=== PATIENT | male | born 1965 | race Caucasian/White ===

== ENCOUNTER 2016-12-24 09:20 | Inpatient (IN) ==
[2016-12-24] MEDS ORDERED: Naloxone 0.4 MG/ML INJ IVP PRN (16:02)
[2016-12-24] MEDS: *HR* HYDROmorphone (PF) 1 MG/ML SYRINGE IVP PRN (16:33)
[2016-12-24] MEDS ORDERED: Dextrose Gel 15 GM PO PRN ×2 (17:24)
[2016-12-24] MEDS ORDERED: D5% in Water 1,000 ML IV PRN (17:24)
[2016-12-24] MEDS ORDERED: *HR* Dextrose 50 % in Water (Syg) 50 ML SYRINGE IVP PRN (17:24)
--- NOTE | 2016-12-24 17:33 | Internal Med History&Physical ---
<Bronson Tavarez - Last Filed: 12/24/16 20:55> Date of Encounter: 12/24/16 Internal Medicine - H&P: HPI History of present illness: Mr. Roman is a 51 year old male Internal Medicine - H&P: Meds Furosemide [Lasix] 80 mg PO DAILY 01/19/16 [History] GlipiZIDE [Glucotrol] 5 mg PO DAILY 01/19/16 [History] Insulin ASPART [NovoLOG] 0 unit SQ TIDWM 01/19/16 [History] Insulin Glargine [Lantus] 90 unit SQ BID 01/19/16 [History] Lisinopril-HCTZ 20-12.5 [Prinzide 20-12.5] 1 each PO DAILY 01/19/16 [History] Albuterol Neb [Proventil Neb] 2.5 mg IH [id number] PRN #0 inhsol 12/24/16 [Rx] Ammonium Lactate [Amlactin] 1 appl TP BID bottle 12/24/16 [Rx] Collagenase Oint [Santyl] 1 appl TP DAILY 12/24/16 [History] Enoxaparin [Lovenox] 40 mg SQ 0700 syringe 12/24/16 [Rx] Gentamicin Sulfate 1 appl TP TID 12/24/16 [History] HYDROcodone/Acet 5/325 mg [[place] 5-325 mg] 1 tab PO Q4HR PRN #0 tablet 12/24/16 [Rx] Nicotine Gum [Nicorette gum] 2 mg BC Q2HWA PRN #0 gum 12/24/16 [Rx] Nystatin POWDER [Nystop] 1 appl TP TID bottle 12/24/16 [Rx] Piperacillin/Tazobactam [Zosyn] 3.375 gm IVPB Q8HR vial 12/24/16 [Rx] Vancomycin [Vancocin] 1 each IVPB RPHPROT vial 12/24/16 [Rx] Vancomycin [Vancocin] 1,000 mg IVPB ONCE vial 12/24/16 [Rx] Vancomycin [Vancocin] 1,000 mg IVPB ONCE vial 12/24/16 [Rx] Vancomycin [Vancocin] 2,000 mg IVPB Q24H vial 12/24/16 [Rx] Allergies codeine Adverse Reaction (Mild, Verified 12/21/16 22:33) Constipation All Systems PM: A 10-system review of systems was performed and is negative for pertinent findings except as documented above in the HPI. - Constitutional Vitals: Temp Pulse Resp BP Pulse Ox 97.7 F 95 16 101/55 95 12/24/16 19:56 12/24/16 19:56 12/24/16 19:56 12/24/16 19:56 12/24/16 19:56 Internal Med - H&P Results - Impressions ITS Impressions Foot MRI 12/24/16 16:45 IMPRESSION: 1. Very mild bone marrow edema in the 2nd metatarsal head and base of the 2nd proximal phalanx with normal T1 signal compatible with noninfectious reactive osteitis although early osteomyelitis is not entirely excluded. 2. Medial plantar forefoot soft tissue ulceration with large underlying subcutaneous gas and fluid collection measuring approximately 7.6 x 3 x 1.8 cm. 3. Smaller gas and fluid collection dorsal to the 2nd metatarsal and 2nd proximal phalanx measuring approximately 3.9 x 2.5 x 2.1 cm. D/ / Tal Purvis MD / Tal Purvis MD Interpreting Provider: Tal Purvis MD - Attending Attestation I examined this patient and my medical decision-making was reviewed with the Advanced Practice Provider. I agree with the documented findings, disposition and treatment plan as described except to the extent set forth below. I have discussed the case with orthopedics. We will obtain an MRI. We will place patient nothing by mouth. He will need I&D of the left foot wound. We will continue with Zosyn and vancomycin. The patient is at high risk for morbidity and mortality and complications due to need for major surgery and IV antibiotics requiring blood level monitoring for toxicity. <Ceci Wheeler - Last Filed: 12/25/16 00:52> Date of Encounter: 12/25/16 Time of Encounter: 17:29 Assessment and Plan (1) Diabetic infection of left foot Current visit: No Status: Acute Left foot plantar surface with swelling, Skin is pale with patch of darker area. Fluctulance under swelling and with a 4cm crack that leaks foul smelling purulent and serosanguinous fluid when fluctulance is palpated. Culture of wound returned with gram + cocci, staph aureus. Xray o fleft foot showed soft tissue plantar wound with multiple locules of gas consistent with cellulitis MRI of left foot ordered Patient follows with Dr. Arguello in Podiatry as an outpatient. Dr. Arguello consulted and will plan for surgery to debride wound. NPO for surgery iV Vanc and Zosyn ESR and CRP ordered. (2) Acute kidney injury Current visit: No Status: Acute Creatinine 12/22: 1.20 12/23: 1.88 12/24: 1.63 at [facility] Hold lasix. IV fluids of 0.9NS at 100mL/hr as patient is NPO Avoid NSAIDS Renal dose antibiotics Recheck chemistry tomorrow. (3) Cellulitis of left lower leg Current visit: No Status: Acute LLE with increased erythema, swelling and tenderness. Blood cultures from [facility] with no growth to date. He has been on 3 days of broad spectrum antibiotics at [facility]. Check random vanc level before dosing next vanc. Zosyn TID. (4) Asthma Current visit: No Status: Acute Patient with reported history of asthma. Reporting cough and wheeze. Lungs with Expiratory wheeze. 12/23 CXR shows no evidence of pneumonia. Duoneb treatments QIDR albuterol nebulizer Q2hr PRN Titrate O2 to maintain oxygen saturation > 92% Qualifiers: Asthma severity: mild intermittent Asthma complication type: with acute exacerbation Qualified Code(s): J45.21 - Mild intermittent asthma with (acute ) exacerbation (5) Hyperlipidemia Current visit: No Status: Chronic Qualifiers: Hyperlipidemia type: mixed hyperlipidemia Qualified Code(s): E78.2 - Mixed hyperlipidemia (6) Hypertension Current visit: No Status: Chronic Qualifiers: Hypertension type: essential hypertension Qualified Code(s): I10 - Essential (primary) hypertension (7) Type 2 diabetes mellitus Current visit: Yes Status: Acute Uncontrolled as evidenced by last Hgb A1c of 9 NPO now for surgery. Diabetic diet when able to take PO. Check blood sugars Q6hr. Normal basal dose of insulin is 90u BID. 45u BID ordered while patient is NPO * will need to be increased to 90 BID when able to eat Sliding scale insulin Q6hr hypoglycemic protocol. 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 Heparin 5,000u SQ BID Internal Medicine - H&P: HPI Chief complaint: Foot ulcer Admitted From: Intrahospital Transfer Plans for Post Hospital Care: Transfer [facility] History of present illness: Mr. Roman is a 51 year old male with history of type 2 diabetes, HTN, hyperlipidemia, obesity and asthma who was tranferred from [facility] with a left foot diabetic ulcer and left leg cellulitis. Patient is a very poor historian, but reports he thinks his foot was hurting for about 3 days prior to presenting to [facility]. He was transferred from [facility] ED to [facility] for insurance reasons. He follows with Dr. Arguello outpatient for podiatry. He stayed 3 days in [facility] and was treated with Vanc and zosyn. WBC was elevated during his stay, and trending down today from 24.3 to 19.2. He was noted to have Acute kidney injury with creatinine rising from 1.20 on admission to 1.88, though trending down with today's creatinine of 1.63. Culture of left foot wound grew gram positive cocci: staph aureus. Blood cultures drawn and [facility] reported no growth to date. On exam , patient is alert and oriented, in no distress. Lungs have diffuse expiratory wheezes, heart has regular rate and rhythm. Left foot plantar surface with swelling, Skin is pale with patch of darker area. Fluctulance under swelling and with a 4cm crack that leaks foul smelling purulent and serosanguinous fluid when fluctulance is palpated. Xray of left foot showed soft tissue plantar wound with multiple locules of gas consistent with cellulitis. LLE with erythema, swelling and tenderness. Past Med Surg Social Fam HX - Past Medical History Medical history: arthritis, asthma, diabetes, hyperlipidemia, hypertension, other Psychiatric history: no psych history - Past Surgical History Surgical History: cataract, orthopedic, other, vasectomy, other - Social History Smoking Status: Former smoker Smokeless Tobacco Status: Yes Alcohol use: none Drug use: none - Family History Brother Living Status: Still Living Hx Family Endocrine Disorder: Yes (2 brothers with diabetes) Father Living Status: Still Living Mother Adopted: No Family Member Ethnicity: Non- Living Status: Hx Family Cardiac Disorders: (unknown) Hx Family Respiratory Disorders: No Hx Family Cancer: Yes Hx Family GI Disorders: No Hx Family Endocrine Disorder: Yes Hx Family Neuromuscular Disorders: No Hx Family Neurologic Disorders: No Hx Family HEENT Disorders: No Hx Family Autoimmune Disorders: No All Systems PM: A 10-system review of systems was performed and is negative for pertinent findings except as documented above in the HPI. - Constitutional Constitutional: chills, no fever(s), no night sweats - EENT Eyes: no change in vision, no discharge, no pain, no photophobia Ears: no ear discharge, no ear pain, no tinnitus Nose, mouth and throat: no dysphagia, no nasal discharge, no neck pain, no sore throat - Cardiovascular Cardiovascular ROS IM: dyspnea, dyspnea on exertion, edema (BLE), no chest pain , no diaphoresis, no lightheadedness, no palpitations, no syncope - Respiratory Respiratory: cough, dyspnea, dyspnea on exertion, wheezing, no excessive phlegm production - Gastrointestinal Gastrointestinal: no abdominal pain, no diarrhea, no hematemesis, no hematochezia, no melena, no nausea, no vomiting - Musculoskeletal Musculoskeletal ROS IM: no numbness, no tingling - Integumentary Integumentary IM: erythema (left lower extremity), skin ulcer (on left foot plantar surface) - Neurological Neurological ROS: no confusion, no convulsions, no focal weakness, no numbness, no tingling, no tremor(s) - Hematologic/Lymphatic Hematologic/Lymphatic: no easy bruising - Constitutional Vitals: Temp Pulse Resp BP Pulse Ox 98 F 100 14 116/60 91 L 12/24/16 14:04 12/24/16 14:04 12/24/16 14:04 12/24/16 14:04 12/24/16 14:04 General appearance: Present: A&O X 3, morbidly obese, no acute distress - Head Head exam: Present: atraumatic, normocephalic - Eye Eye exam: Present: PERRL, conjuntiva pink, sclera anicteric Pupils: Present: PERRL - Neck Neck exam general surgery: Present: supple, trachea midline. Absent: lymphadenopathy - Respiratory Respiratory exam: Present: wheezes (expiratory wheezes). Absent: accessory muscle use, rales, rhonchi - Cardiovascular Cardiovascular exam: Present: RRR, +S1, +S2. Absent: diastolic murmur, gallop, rubs, systolic murmur - GI/Abdominal GI/Abdominal exam: Present: normal bowel sounds, soft, no peritoneal signs. Absent: distended, tenderness - Extremities Exam Extremities exam: Present: pedal edema, tenderness, warm, radial pulses palpable and symetrical. Absent: calf tenderness, cyanotic - Expanded Lower Extremities Exam Foot/Toe exam: Present: swelling (bilateral), tenderness (left ) - Neurological Exam Neurological exam: Present: CN II-XII intact, oriented X3, no focal deficits. Absent: facial droop, speech deficit - Skin Additional comments: Left foot plantar surface with swelling, Skin is pale with patch of darker area. Fluctulance under swelling and with a 4cm crack that leaks foul smelling purulent and serosanguinous fluid when fluctulance is palpated. Left lower leg with significant erythema, swelling and tenderness consistent with cellulitis. Internal Med - H&P Results - Labs Labs: Labs from [facility]: 12/24/16 Hgb 11.2 Hct 34.4 WBC 19.2 PLT 298 Na 131 K 4.4 CL 94 CO2 25 BUN 44 Cr 1.63 Glu 166 Foot wound culture positive for gram + cocci, staph aureus
[2016-12-24] MEDS: Insulin LISPRO 300 UNITS/3 ML VIAL SQ SCH (17:55)
[2016-12-24] MEDS: 0.9 % Sodium Chloride 1,000 ML IVC SCH (17:59)
[2016-12-24] MEDS ORDERED: *HR* Heparin 5,000 UNIT/ML VIAL SQ SCH (18:00)
[2016-12-24] MEDS: Ipratropium/Albuterol Neb 3 ML IH SCH ×2 (18:34→23:09)
[2016-12-24] MEDS: Insulin DETEMIR 100 UNIT/ML X5UNITS SQ SCH (21:41)
--- NOTE | 2016-12-24 21:45 | Anesthesia Evaluation PreOp ---
Date of Encounter: 12/25/16 Time of Encounter: 00:55 - Past History Planned Operation: I&D foot Cardiac History: HTN (maintained on Lisinopril-HCTZ, Lasix), Hyperlipidemia, Other (Stress Test 12/21/16 - Cardiology Impression pending) Pulmonary History: Former smoker (quit in currently on Nicorette gum), Asthma (maintained on DuoNebs, Albuterol), STEPHIE Dx (not formally diagnosed) [employer] History: Denies Any Significant HX Other Medical History: Renal (Acute vs Chronic renal insufficiency/GFR = 45), Diabetes Type II (Uncontrolled DM/HbA1c = 9.0, avg Glucose = 212. Maintained on Lantus, NOvolog, Glucotrol), Other (LLE cellulitis and diabetic foot ulcer - actively tx w/Zosyn & Vancomycin) Anesthesia History: No Prior Anesthetic Complications, Past Anesthesia ( Cataracts, Vasectomy, Endoscopy) Alcohol Use: none Drug use: none Medications and Allergies Furosemide [Lasix] 80 mg PO DAILY 01/19/16 [History] GlipiZIDE [Glucotrol] 5 mg PO DAILY 01/19/16 [History] Insulin ASPART [NovoLOG] 0 unit SQ TIDWM 01/19/16 [History] Insulin Glargine [Lantus] 90 unit SQ BID 01/19/16 [History] Lisinopril-HCTZ 20-12.5 [Prinzide 20-12.5] 1 each PO DAILY 01/19/16 [History] Albuterol Neb [Proventil Neb] 2.5 mg IH [id number] PRN #0 inhsol 12/24/16 [Rx] Ammonium Lactate [Amlactin] 1 appl TP BID bottle 12/24/16 [Rx] Collagenase Oint [Santyl] 1 appl TP DAILY 12/24/16 [History] Enoxaparin [Lovenox] 40 mg SQ 0700 syringe 12/24/16 [Rx] Gentamicin Sulfate 1 appl TP TID 12/24/16 [History] HYDROcodone/Acet 5/325 mg [[place] 5-325 mg] 1 tab PO Q4HR PRN #0 tablet 12/24/16 [Rx] Nicotine Gum [Nicorette gum] 2 mg BC Q2HWA PRN #0 gum 12/24/16 [Rx] Nystatin POWDER [Nystop] 1 appl TP TID bottle 12/24/16 [Rx] Piperacillin/Tazobactam [Zosyn] 3.375 gm IVPB Q8HR vial 12/24/16 [Rx] Vancomycin [Vancocin] 1 each IVPB RPHPROT vial 12/24/16 [Rx] Vancomycin [Vancocin] 1,000 mg IVPB ONCE vial 12/24/16 [Rx] Vancomycin [Vancocin] 1,000 mg IVPB ONCE vial 12/24/16 [Rx] Vancomycin [Vancocin] 2,000 mg IVPB Q24H vial 12/24/16 [Rx] Allergies codeine Adverse Reaction (Mild, Verified 12/21/16 22:33) Constipation - Meds/Allergy Pre-op Review Medications Reviewed: Yes Allergies Reviewed: Yes Beta Blockers on Current Med List: No Anesthesia Results - Labs Laboratory Tests 12/22/16 12/24/16 12/24/16 05:13 06:10 06:10 WBC 19.2 H Hgb 11.2 L Hct 34.4 L Plt Count 298 PT 14.2 H INR 1.3 APTT 29.8 Sodium Potassium Chloride Carbon Dioxide BUN Creatinine Est GFR (Non-Af Amer) Glucose Est Mean Plasma Glucose 212 Hemoglobin A1c 9.0 H Impressions Foot MRI 12/24/16 16:45 IMPRESSION: 1. Very mild bone marrow edema in the 2nd metatarsal head and base of the 2nd proximal phalanx with normal T1 signal compatible with noninfectious reactive osteitis although early osteomyelitis is not entirely excluded. 2. Medial plantar forefoot soft tissue ulceration with large underlying subcutaneous gas and fluid collection measuring approximately 7.6 x 3 x 1.8 cm. 3. Smaller gas and fluid collection dorsal to the 2nd metatarsal and 2nd proximal phalanx measuring approximately 3.9 x 2.5 x 2.1 cm. D/ / Tal Purvis MD / Tal Purvis MD Interpreting Provider: Tal Purvis MD Anesthesia Exam Vital Signs Temp Pulse Resp BP Pulse Ox 12/24/16 19:56 97.7 F 95 16 101/55 95 12/24/16 14:04 98 F 100 14 116/60 91 L Intake and Output 12/24/16 12/24/1612/24/17 07:59 15:59 23:59 Other: # Voids 1 Weight 176.447 kg Blood Glucose* 130 Height: 5'10" Weight: 389# BMI = 56 NPO (# of Hours): MNoc Pain Scale Used: [place] (Faces) - HEENT Pupil (Motor): Pupils equal, EOMI Mallampati: III Teeth: Poor dentition Oral Opening: Greater than 3 - [employer] LOC: Oriented [employer] Motor: Normal RUE, Normal LUE, Normal RLE, Normal LLE, Normal Face [employer] Sensory: Normal: RUE, LUE, RLE, LLE, Face - Cardiac Rhythm: Regular Murmur: None - Pulmonary Breath Sounds: bilateral Clear Respiratory Effort: Symmetrical Anesthesia Assess/Plan ASA Score: 4 (Super MO, Uncontrolled DM, HTN, Asthma, Renal Insufficiency) Modified [place] Scale for Level of Consciousness: Cooperative, oriented, and tranquil Anesthetic Plan: General Monitoring Plan: Standard Monitors Recovery Plan: PACU Anes Supervising Prov Stmt: Pt seen/evaluated, R&B discussed, questions answered and consent obtained. Yolanda Lewis MD
[2016-12-24] MEDS ORDERED: *HR* Propofol 200 MG/20 ML VIAL IVP ONE (22:04)
[2016-12-24] MEDS ORDERED: Ketamine *HR* 500 MG/10 ML MDV ONE (22:04)
[2016-12-24] MEDS ORDERED: *HR* FentaNYL (PF) 100 MCG/2 ML VIAL ONE (22:04)
[2016-12-24] MEDS ORDERED: *HR* Midazolam HCl 2 MG/2 ML VIAL ONE (22:04)
[2016-12-24] MEDS ORDERED: Propofol 500 MG/50 ML INFUS..BTL ONE (22:04)
[2016-12-24] MEDS ORDERED: Lidocaine -MPF 2% 2 ML VIAL ONE ×2 (22:04→22:24)
[2016-12-25] MEDS ORDERED: Bupivacaine/Clonidine Syringe 1 EACH SYRINGE ONE (00:34)
[2016-12-25] MEDS ORDERED: Acetaminophen IV 1,000 MG/100 ML INFUS..BTL ONE (00:40)
[2016-12-25] MEDS ORDERED: Metoclopramide 10 MG/2 ML VIAL ONE (00:40)
[2016-12-25] MEDS ORDERED: Famotidine 20 MG/2 ML VIAL ONE (00:41)
[2016-12-25] MEDS ORDERED: Albuterol 2.5 MG/3 ML NEBULIZER ONE (00:46)
[2016-12-25] MEDS ORDERED: Ringers Solution, Lactated 1,000 ML ONE (00:46)
--- NOTE | 2016-12-25 01:03 | Podiatry Consult Note ---
Date of Encounter: 12/25/16 Time of Encounter: 01:01 Assessment and Plan (1) Diabetic infection of left foot Current visit: No Status: Acute Patient was instructed that he is in need of an incision and drainage to remove any necrotic, nonviable, purulent tissue. Patient was agreeable and the patient was scheduled for an incision and drainage of the left foot.Patient was informed of the risks and complications of surgery. These may include but are not limited to the following; nerve damage, numbness, tingling, RSD/CRPS, loss of motor function, loss of toe, loss of limb, loss of life, ischemia, wound healing issues, infection, scarring, keloid formation, continued pain, arthritis, non-union, mal-union, prominent hardware, displaced hardware, reaction to hardware, the need to remove hardware, bruising, continued limp, the need for future surgery, over correction, under correction, chronic swelling , the need for physical therapy, stiffness of joints, ulceration, slow healing, wound dehiscence, reaction to implant, reaction to sutures. The patient was informed of the possible conservative treatments available which may include but are not limited to the following: Orthotics, bracing, non -weight bearing, physical therapy, padding, taping, steroid injections, NSAIDS, casting. The patient was given the option to seek a second opinion. It was explained that surgery is an art and not an exact science therefore results cannot be guaranteed. All the patients questions and concerns were addressed. Patient agrees to have the surgery despite the possible risks and complications. Absolutely no guarantees were given or implied. History of Present Illness Chief complaint: Left foot infection HPI: Mr. Roman is a 51 year old male who recently had foot pain and was admitted to [place] [facility] for a foot infection. Patient relates that after admission he began feeling a little better but then recently began having an increase in pain. Patient relates that he has 10 out of 10 pain. Patient denies any other pedal complaints. Past Med Surg Social Fam HX - Past Medical History Medical history: arthritis, asthma, diabetes, hyperlipidemia, hypertension, other Psychiatric history: no psych history - Past Surgical History Surgical History: cataract, orthopedic, other, vasectomy, other - Social History Smoking Status: Former smoker Smokeless Tobacco Status: Yes Alcohol use: none Drug use: none - Family History Brother Living Status: Still Living Hx Family Endocrine Disorder: Yes (2 brothers with diabetes) Father Living Status: Still Living Mother Adopted: No Family Member Ethnicity: Non- Living Status: Hx Family Cardiac Disorders: (unknown) Hx Family Respiratory Disorders: No Hx Family Cancer: Yes Hx Family GI Disorders: No Hx Family Endocrine Disorder: Yes Hx Family Neuromuscular Disorders: No Hx Family Neurologic Disorders: No Hx Family HEENT Disorders: No Hx Family Autoimmune Disorders: No Medications and Allergies Furosemide [Lasix] 80 mg PO DAILY 01/19/16 [History] GlipiZIDE [Glucotrol] 5 mg PO DAILY 01/19/16 [History] Insulin ASPART [NovoLOG] 0 unit SQ TIDWM 01/19/16 [History] Insulin Glargine [Lantus] 90 unit SQ BID 01/19/16 [History] Lisinopril-HCTZ 20-12.5 [Prinzide 20-12.5] 1 each PO DAILY 01/19/16 [History] Albuterol Neb [Proventil Neb] 2.5 mg IH [id number] PRN #0 inhsol 12/24/16 [Rx] Ammonium Lactate [Amlactin] 1 appl TP BID bottle 12/24/16 [Rx] Collagenase Oint [Santyl] 1 appl TP DAILY 12/24/16 [History] Enoxaparin [Lovenox] 40 mg SQ 0700 syringe 12/24/16 [Rx] Gentamicin Sulfate 1 appl TP TID 12/24/16 [History] HYDROcodone/Acet 5/325 mg [[place] 5-325 mg] 1 tab PO Q4HR PRN #0 tablet 12/24/16 [Rx] Nicotine Gum [Nicorette gum] 2 mg BC Q2HWA PRN #0 gum 12/24/16 [Rx] Nystatin POWDER [Nystop] 1 appl TP TID bottle 12/24/16 [Rx] Piperacillin/Tazobactam [Zosyn] 3.375 gm IVPB Q8HR vial 12/24/16 [Rx] Vancomycin [Vancocin] 1 each IVPB RPHPROT vial 12/24/16 [Rx] Vancomycin [Vancocin] 1,000 mg IVPB ONCE vial 12/24/16 [Rx] Vancomycin [Vancocin] 1,000 mg IVPB ONCE vial 12/24/16 [Rx] Vancomycin [Vancocin] 2,000 mg IVPB Q24H vial 12/24/16 [Rx] Allergies codeine Adverse Reaction (Mild, Verified 12/21/16 22:33) Constipation All Systems Reviewed: A 10-system review of systems was performed and is negative for pertinent findings except as documented above in the HPI. Physical Exam - Constitutional Vitals: Temp Pulse Resp BP Pulse Ox 98.2 F 99 18 117/60 96 12/24/16 23:26 12/24/16 23:26 12/24/16 23:26 12/24/16 23:26 12/24/16 23:26 Exam: Significant edema noted the left lower extremity with palpable abscess plantar aspect and a mild amount of necrotic tissue along the plantar aspect of the foot. The clinical picture is consistent with the MRI. Pedal pulses difficult to palpate secondary to significant edema. Capillary fill time intact to the digits. Sensation diminished consistent with peripheral neuropathy. Results - Labs Labs: Abnormal lab results ESR >= 130 mm/hr (0-10) H 12/24/16 19:45 POC Glucose 97 (58-89) H 12/24/16 23:25 C-Reactive Protein 249 mg/L (Less than 5) H 12/24/16 19:45 All other labs normal. Consult Discharge Plan - Plan Referrals: Starla Rodriguez MD [Primary Care Provider] -
[2016-12-25] MEDS ORDERED: Gabapentin 300 MG CAPSULE ONE (01:14)
--- NOTE | 2016-12-25 02:08 | Operative Note ---
Date of procedure: 12/25/16 Pre-op diagnosis: Infection left foot Post-op diagnosis: same Procedure: Incision and drainage left foot plantar aspect and dorsal aspect two separate abscesses Implants: Iodoform gauze packing Complications: None Anesthesia: SULEMA Surgeon: Jorge Arguello Estimated blood loss (cc): 5 Specimen: Cultures left foot Condition: stable Disposition: floor Procedure in Detail: Patient was transported to the operating room and placed in a supine position. Following anesthesia the foot was scrubbed prepped and draped in the usual aseptic fashion. A timeout was performed. The plantar aspect of the foot was inspected and noted to have an abscess consistent with the MRI. A longitudinal incision was made approximately 8 cm in length from the second metatarsal head proximally to a depth of the plantar fascia and slightly beyond. Significant amounts of purulence were noted and cultured. A separate incision was made on the dorsal aspect of the foot above the second metatarsal phalangeal joint and deepened through subcutaneous tissue with care taken to identify and retract all vital neurovascular structures. The incision dorsally was made to the level of the fascia not including any bone. Gas and purulence was noted to drain out of the dorsal incision site. Both sites had necrotic tissue down to the level of the fascia, a debridement was performed at both incision sites removing any necrotic, nonviable tissue. The incision sites were both pulse irrigated with copious amounts of normal saline. The sites were then packed with iodoform gauze. Dressings were applied. The patient was transported to the recovery room with vital signs stable vascular status intact both feet. The patient will minimize weightbearing. The patient will have the packing changed every 6 hours. The patient will likely require additional irrigation and debridement at a later time. A wound VAC will likely be needed at a later date due to the depth of the infection to the level of the fascia. Patient will also likely require long-term IV antibiotic therapy. Infectious disease will likely be beneficial to manage any long-term IV antibiotic therapy.
--- NOTE | 2016-12-25 02:40 | Anesthesia Evaluation Post Op ---
Date of Encounter: 12/25/16 Time of Encounter: 02:38 - Vital Signs Vital Signs: Vital Signs/O2 Sat/Glucose, Most Current Temp Pulse Resp BP Pulse Ox 12/25/16 02:33 97.9 F 92 18 102/79 94 L 12/25/16 02:23 92 20 121/67 97 12/25/16 02:13 93 14 111/52 97 12/25/16 02:03 97.2 F L 91 14 90/56 97 12/24/16 23:26 98.2 F 99 18 117/60 96 12/24/16 23:09 16 91 L - Lungs Lungs: Clear Ascult./Percussion - Airway Airway: Non-obstructed - Cardiovascular Regular Rate - Mental Status Mental Status: Asleep with brisk response to light stimulation - Pain Pain Scale: 0 Pain Scale used: Numeric (1 - 10) - Nausea Vomiting Nausea Vomiting: Not Present - Hydration Hydration: Tolerates oral liquids, Has not voided - Discharge PostOp Status: Transfer Patient to floor Anes Supervising Prov Stmt: Pt seen/evaluated, VSS and pt has met criteria for discharge to floor. - MD Debbie
[2016-12-25] MEDS: Ipratropium/Albuterol Neb 3 ML IH SCH ×4 (03:13→23:31)
[2016-12-25] MEDS: Insulin LISPRO 300 UNITS/3 ML VIAL SQ SCH ×4 (03:44→17:15)
[2016-12-25 04:32] LABS: Basophils # 0.1 K/mcL (0.0-0.2); Basophils % 0.3 %; Eosinophils # 0.1 K/mcL (0.0-0.6); Eosinophils % 0.8 %; Hematocrit 36.6 % (37.5-50.1); Hemoglobin 11.6 g/dL (12.9-16.9); Immature Granulocytes % 1.9 % (0-4); Lymphocytes # 0.7 K/mcL (0.6-4.6); Lymphocytes % 3.9 %; Mean Corpuscular HGB Conc 31.7 g/dL (31.6-35.5); Mean Corpuscular Volume 91.5 fL (83.0-100.0); Mean Platelet Volume 10.6 fL (9.4-12.4); Monocytes # 1.7 K/mcL (0.0-1.3); Monocytes % 9.3 %; Neutrophils # 15.5 K/mcL (1.6-8.9); Platelet Count 360 K/mcL (140-400); Red Cell Distribution Width 14.1 % (11.5-14.5); Segmented Neutrophils % 83.8 %
[2016-12-25 04:40] LABS: BUN/Creatinine Ratio 32 (6-26); Blood Urea Nitrogen 44 mg/dL (8-26); Calcium 9.3 mg/dL (8.6-10.8); Carbon Dioxide 24 mEq/L (19-29); Chloride 96 mEq/L (98-109); Glucose 80 mg/dL (70-99); Osmolality,Calculated 288 (280-300); Potassium 4.5 mEq/L (3.5-4.5); Sodium 134 mEq/L (136-145); eGFR For African Americans > 60 (> 60); eGFR For Non-African Americans 54 (> 60)
[2016-12-25] MEDS: Nicotine 7 MG PATCH.TD24 TD SCH (07:22)
[2016-12-25] MEDS: Insulin DETEMIR 100 UNIT/ML X5UNITS SQ SCH ×2 (10:23→20:19)
[2016-12-25] MEDS: 0.9 % Sodium Chloride 1,000 ML IVC SCH ×2 (10:56→18:06)
[2016-12-25] MEDS: Vancomycin 1,750 MG in D5% in Water 500 ML IVPB SCH (14:03)
[2016-12-25] MEDS: Piperacillin/Tazobactam 3.375 GM in D5% in Water (Mini-Bag+) 100 ML IVPB SCH ×2 (14:04→22:46)
--- NOTE | 2016-12-25 14:36 | Internal Med Progress Note ---
Date of Encounter: 12/25/16 Time of Encounter: 12:00 - Assessment and plan (1) Cellulitis of left foot Current Visit: No Status: Acute Assessment and plan: Podiatry is on board. Status post I&D last night with likely repeat trip to the OR tomorrow, nothing by mouth at midnight. We will continue IV thank and Zosyn. Wound culture with staph aureus pansensitive except for resistance to clindamycin and erythromycin. At podiatry's request, will bring infectious disease on board as the patient will likely need 6 weeks of IV antibiotics. Leukocytosis improving. Capillary refill brisk to his toes. Likely placement of wound VAC in the near future. ITS Impressions Foot MRI 12/24/16 16:45 IMPRESSION: 1. Very mild bone marrow edema in the 2nd metatarsal head and base of the 2nd proximal phalanx with normal T1 signal compatible with noninfectious reactive osteitis although early osteomyelitis is not entirely excluded. 2. Medial plantar forefoot soft tissue ulceration with large underlying subcutaneous gas and fluid collection measuring approximately 7.6 x 3 x 1.8 cm. 3. Smaller gas and fluid collection dorsal to the 2nd metatarsal and 2nd proximal phalanx measuring approximately 3.9 x 2.5 x 2.1 cm. D/ / Tal Purvis MD / Tal Purvis MD Interpreting Provider: Tal Purvis MD (2) Leukocytosis Current Visit: Yes Status: Acute Assessment and plan: Improving, will continue to trend. Continue IV vancomycin and Zosyn (3) Acute respiratory failure with hypoxia Current Visit: Yes Status: Acute Assessment and plan: Patient denies shortness of breath above his normal however he is currently on 2 L per nasal cannula, not on oxygen at home. We will continue to trend. (4) Type 2 diabetes mellitus Current Visit: Yes Status: Chronic Assessment and plan: Uncontrolled with A1c of 9.0% on 12/22/16. Sliding scale while admitted. We will attempt further education. 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) use of insulin (5) Acute kidney injury Current Visit: No Status: Acute Assessment and plan: Improving, continue IV fluids (6) Asthma Current Visit: No Status: Chronic Assessment and plan: No acute exacerbation Qualifiers: Asthma severity: mild intermittent Asthma complication type: with acute exacerbation Qualified Code(s): J45.21 - Mild intermittent asthma with (acute ) exacerbation (7) DVT prophylaxis Current Visit: No Status: Acute Assessment and plan: Subcutaneous heparin (8) 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 (10) Morbid obesity with BMI of 50.0-59.9, adult Current Visit: No Status: Chronic - Subjective Interval history: Patient seen and examined. On examination, patient laying supine in bed watching television. Patient complains of pain all over. He denies any new pain. He states he is eating well. - Constitutional Vitals: Temp Pulse Resp BP Pulse Ox 97.7 F 95 19 116/64 91 L 12/25/16 10:55 12/25/16 10:55 12/25/16 10:55 12/25/16 10:55 12/25/16 10:55 General appearance: Present: disheveled, A&O X 3, morbidly obese, no acute distress, answers questions appropriately - Head Head exam: Present: atraumatic, normocephalic - Eye Eye exam: Present: PERRL, conjuntiva pink, sclera anicteric Pupils: Present: PERRL - Neck Neck exam general surgery: Present: supple, trachea midline. Absent: lymphadenopathy - Respiratory Respiratory exam: Present: decreased breath sounds (2/2 body habitus). Absent: accessory muscle use, rales, respiratory distress, rhonchi, wheezes - Cardiovascular Cardiovascular exam: Present: distant heart sounds (2/2 body habitus), RRR, +S1 , +S2. Absent: diastolic murmur, gallop, rubs, systolic murmur - GI/Abdominal GI/Abdominal exam: Present: normal bowel sounds, soft, no peritoneal signs. Absent: distended, tenderness - Extremities Exam Extremities exam: Present: pedal edema, warm, radial pulses palpable and symetrical. Absent: calf tenderness, cyanotic - Expanded Lower Extremities Exam Ankle exam: Present: erythema, swelling. Absent: normal inspection Foot/Toe exam: Present: erythema, swelling Neuro vascular tendon exam: Present: sensory deficit. Absent: abnormal cap refill, no vascular compromise Gait: Present: not tested/not observed - Neurological Exam Neurological exam: Present: alert, CN II-XII intact, oriented X3, no focal deficits, strengths equal and symetr throughout. Absent: pronater drift, facial droop, speech deficit - Skin Skin exam: Present: dry, intact, normal color, warm Internal Medicine: Result - Labs CBC & Chem 7: 12/25/16 03:44 12/25/16 03:44 Labs: Short CBC 12/25/16 Range/Units 03:44 WBC 18.5 H (4.3-11.1) K/mcL Hgb 11.6 L (12.9-16.9) g/dL Hct 36.6 L (37.5-50.1) % Plt Count 360 (140-400) K/mcL Neutrophils # 15.5 H (1.6-8.9) K/mcL BMP 12/25/16 03:44 Sodium 134 L Potassium 4.5 Chloride 96 L Carbon Dioxide 24 BUN 44 H Creatinine 1.39 H Glucose 80 Calcium 9.3 - Impressions Impressions Foot MRI 12/24/16 16:45 IMPRESSION: 1. Very mild bone marrow edema in the 2nd metatarsal head and base of the 2nd proximal phalanx with normal T1 signal compatible with noninfectious reactive osteitis although early osteomyelitis is not entirely excluded. 2. Medial plantar forefoot soft tissue ulceration with large underlying subcutaneous gas and fluid collection measuring approximately 7.6 x 3 x 1.8 cm. 3. Smaller gas and fluid collection dorsal to the 2nd metatarsal and 2nd proximal phalanx measuring approximately 3.9 x 2.5 x 2.1 cm. D/ / Tal Purvis MD / Tal Purvis MD Interpreting Provider: Tal Purvis MD - VTE Documentation of Mechanical Device: Intermittent pneumatic compression device Consult Discharge Plan - Plan Referrals: Starla Rodriguez MD [Primary Care Provider] -
--- NOTE | 2016-12-25 15:11 | Infectious Disease Consult ---
Date of Encounter: 12/25/16 Time of Encounter: 15:09 Assessment and Plan (1) Severe sepsis Status: Acute Assessment and plan: on admission patient had 3 SIRS criteria with FLORA source: diabetic foot infection improving (2) Necrotizing fasciitis Status: Acute Assessment and plan: noted on MRI causitive organism unclear yet, but likely type 1 necrotizing fasciitis s/p aggressive I&D by Dr. Arguello on 12/25/16; concern for deep infection and early osteomyelitis ESR >130, CRP 248 currently on vancomycin and zosyn continue current regimen until cultures finalize, then we will tailor Abx accordingly monitor kidney function very closely goal vancomycin trough around 15; pharmacy to help patient will need a picc line placement for IV antibioitcs as outpatient duration 6 weeks. please involve social sciences professor to see if patient can go home or needs to be placed in an extended care facility. (3) Constipation Status: Acute Assessment and plan: notified nursing, they will call hospitalist Qualifiers: Constipation type: unspecified constipation type Qualified Code(s): K59.00 - Constipation, unspecified (4) Venous stasis dermatitis Status: Acute Qualifiers: Laterality: bilateral Qualified Code(s): I83.11 - Varicose veins of right lower extremity with inflammation; I83.12 - Varicose veins of left lower extremity with inflammation (5) Type 2 diabetes mellitus Status: Chronic Qualifiers: Diabetes mellitus complication status: with skin complications Diabetes mellitus complication detail: with foot ulcer Diabetes mellitus assisted insulin use: with assisted use Qualified Code(s): E11.621 - Type 2 diabetes mellitus with foot ulcer; L97.509 - Non-pressure chronic ulcer of other part of unspecified foot with unspecified severity; Z79.4 - detention (current) use of insulin (6) Acute kidney injury Status: Acute (7) Hyperlipidemia Status: Chronic Qualifiers: Hyperlipidemia type: mixed hyperlipidemia Qualified Code(s): E78.2 - Mixed hyperlipidemia (8) Hypertension Status: Chronic Qualifiers: Hypertension type: essential hypertension Qualified Code(s): I10 - Essential (primary) hypertension (9) Morbid obesity with BMI of 50.0-59.9, adult Status: Chronic Infectious Disease HPI - Data of Consult Patient: new to practice Consult date: 12/25/16 Requesting Physician: Milvia Sharma Primary Care Provider: Starla Rodriguez, - Consult Narrative Reason for consult: necrotizing fasciitis History of present illness: Mr. Roman is a 51 year old male Patient is a 51 year old gentleman transferred to [place] from [place] on for diabetic foot ulcer with necrotizing fasciitis. We are consulted for IV antibiotics recommendations and picc line placement. Patient is a 51 year old gentleman with past medical history significant for DM x 20 years that is poorly controlled, dyslipidemia, peripheral neuropathy, morbid obesity with BMI of 56, HTN and chronic venous stasis of bilateral lower extremities came into the Ed at [place] for feeling weak and tired and felt that he was having URI symptoms. Per [place] records : patient said he has had a "cold" and has had sore throat and chills and perspiring especially at night time. Sometimes he has been wheezing. He said he has been without his hot water heater for a couple of weeks. He had to wear his dress socks for 3 days in a row and did not realize that he was having troubles with his foot. Then he started having throbbing in his left foot. 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 He said they had to cut socks off of his foot and made an indentation because it was so tight. He was evaluated in the emergency room in [facility], blood cultures obtaining, white blood cell count was 21,000. He was given a breathing treatment because he was wheezing. Give him a dose of Zosyn. With the type of insurance that he has, he has no coverage at the [facility] and so they requested transfer to [place]. At [place], patient was afebrile, tachycardic and with leukocytosis with WBC of 24,000 and neutropihilic predominance. No bands. Patients ESR was >130 and CRP of 249. Pt also went to acute kidney injury with Cr jumping from 1.2 on admission to 1.88 peak. A foot xray revealed multiple locules of gas in the soft tissue. An MRI was done here and it revealed, very mild bone marrow edema in the 2nd metatarsal, medial soft tissue ulceration with large underlying subcutaneous gas and fluid collection ( 7.6x3x1.8). another fluid and air collection dorsal to the 2nd metatarsal measuring 3.9x2.5x2.1. Patient was taken to surgery by Dr. Mcginnis where he had aggressive I&D and cultures intra operatively were sent. Patient didnt have any amputation. Dr. Mcginnis feels that the infection was deep and concerned for osteo and would like a prolonged Abx treatment as outpatient CC: Milvia Sharma Past Med Surg Social Fam HX - Past Medical History Medical history: arthritis, asthma, diabetes, hyperlipidemia, hypertension, other Psychiatric history: no psych history - Past Surgical History Surgical History: cataract, orthopedic, other, vasectomy, other - Social History Smoking Status: Former smoker Smokeless Tobacco Status: Yes Alcohol use: none Drug use: none - Family History Brother Living Status: Still Living Hx Family Endocrine Disorder: Yes (2 brothers with diabetes) Father Living Status: Still Living Mother Adopted: No Family Member Ethnicity: Non- Living Status: Hx Family Cardiac Disorders: (unknown) Hx Family Respiratory Disorders: No Hx Family Cancer: Yes Hx Family GI Disorders: No Hx Family Endocrine Disorder: Yes Hx Family Neuromuscular Disorders: No Hx Family Neurologic Disorders: No Hx Family HEENT Disorders: No Hx Family Autoimmune Disorders: No Infectious Disease-CN:Meds Furosemide [Lasix] 80 mg PO DAILY 01/19/16 [History] GlipiZIDE [Glucotrol] 5 mg PO DAILY 01/19/16 [History] Insulin ASPART [NovoLOG] 0 unit SQ TIDWM 01/19/16 [History] Insulin Glargine [Lantus] 90 unit SQ BID 01/19/16 [History] Lisinopril-HCTZ 20-12.5 [Prinzide 20-12.5] 1 each PO DAILY 01/19/16 [History] Albuterol Neb [Proventil Neb] 2.5 mg IH [id number] PRN #0 inhsol 12/24/16 [Rx] Ammonium Lactate [Amlactin] 1 appl TP BID bottle 12/24/16 [Rx] Collagenase Oint [Santyl] 1 appl TP DAILY 12/24/16 [History] Enoxaparin [Lovenox] 40 mg SQ 0700 syringe 12/24/16 [Rx] Gentamicin Sulfate 1 appl TP TID 12/24/16 [History] HYDROcodone/Acet 5/325 mg [[place] 5-325 mg] 1 tab PO Q4HR PRN #0 tablet 12/24/16 [Rx] Nicotine Gum [Nicorette gum] 2 mg BC Q2HWA PRN #0 gum 12/24/16 [Rx] Nystatin POWDER [Nystop] 1 appl TP TID bottle 12/24/16 [Rx] Piperacillin/Tazobactam [Zosyn] 3.375 gm IVPB Q8HR vial 12/24/16 [Rx] Vancomycin [Vancocin] 1 each IVPB RPHPROT vial 12/24/16 [Rx] Vancomycin [Vancocin] 1,000 mg IVPB ONCE vial 12/24/16 [Rx] Vancomycin [Vancocin] 1,000 mg IVPB ONCE vial 12/24/16 [Rx] Vancomycin [Vancocin] 2,000 mg IVPB Q24H vial 12/24/16 [Rx] Allergies codeine Adverse Reaction (Mild, Verified 12/21/16 22:33) Constipation Review of systems: 10 point ROS done, negative other for constipation Exam - Constitutional Vitals: Temp Pulse Resp BP Pulse Ox 97.7 F 95 19 116/64 91 L 12/25/16 10:55 12/25/16 10:55 12/25/16 10:55 12/25/16 10:55 12/25/16 10:55 General appearance: no acute distress, obese, no febrile - Head Head exam: Present: atraumatic, normocephalic - Eye Eye exam: Present: EOMI, PERRL - ENT ENT exam: Present: mucous membranes dry - Neck Neck exam: Present: full ROM. Absent: meningismus - Respiratory Respiratory exam: Present: CTAB. Absent: stridor, wheezes - Cardiovascular Cardiovascular exam: Present: RRR, +S1, +S2. Absent: systolic murmur - GI/Abdominal GI/Abdominal exam: Present: distended, hypoactive bowel sounds, soft - Extremities Exam Additional comments: bilateral lower extremity venous stasis. left foot surgically wrapped - Neurological Exam Neurological exam: Present: alert, oriented X3. Absent: facial droop, speech deficit - Psychiatric Psychiatric exam: Present: normal affect, normal mood. Absent: agitated - Skin Additional comments: erythema bilateral lower extremities with chronic venous stasis changes. multiple tattoos UE Infectious Disease CN: Results - Labs CBC & Chem 7: 12/25/16 03:44 12/25/16 03:44 - VTE Documentation of Mechanical Device: Intermittent pneumatic compression device Consult Discharge Plan - Plan Referrals: Starla Rodriguez MD [Primary Care Provider] -
[2016-12-25] MEDS: *HR* HYDROmorphone (PF) 1 MG/ML SYRINGE IVP PRN (22:46)
[2016-12-26] MEDS: Insulin LISPRO 300 UNITS/3 ML VIAL SQ SCH ×4 (00:40→17:57)
[2016-12-26] MEDS: 0.9 % Sodium Chloride 1,000 ML IVC SCH ×2 (00:40→13:14)
[2016-12-26] MEDS: Vancomycin 1,750 MG in D5% in Water 500 ML IVPB SCH ×3 (03:49→23:41)
[2016-12-26 04:24] LABS: Basophils % 0.4 %; Eosinophils # 0.1 K/mcL (0.0-0.6); Eosinophils % 1.2 %; Hematocrit 34.5 % (37.5-50.1); Hemoglobin 10.9 g/dL (12.9-16.9); Immature Granulocytes % 2.5 % (0-4); Lymphocytes # 0.7 K/mcL (0.6-4.6); Lymphocytes % 5.9 %; Mean Corpuscular HGB Conc 31.6 g/dL (31.6-35.5); Mean Corpuscular Hemoglobin 28.7 pg (28.0-33.3); Mean Corpuscular Volume 90.8 fL (83.0-100.0); Mean Platelet Volume 10.2 fL (9.4-12.4); Monocytes # 1.2 K/mcL (0.0-1.3); Monocytes % 10.5 %; Neutrophils # 9.1 K/mcL (1.6-8.9); Platelet Count 348 K/mcL (140-400); Segmented Neutrophils % 79.5 %
[2016-12-26] MEDS: Ipratropium/Albuterol Neb 3 ML IH SCH ×4 (04:52→23:22)
[2016-12-26 05:39] LABS: BUN/Creatinine Ratio 28 (6-26); Carbon Dioxide 29 mEq/L (19-29); Chloride 100 mEq/L (98-109); Glucose 148 mg/dL (70-99); Osmolality,Calculated 292 (280-300); Potassium 4.2 mEq/L (3.5-4.5); Sodium 138 mEq/L (136-145); eGFR For African Americans > 60 (> 60); eGFR For Non-African Americans > 60 (> 60)
[2016-12-26 05:40] LABS: Blood Urea Nitrogen 23 mg/dL (8-26); C-Reactive Protein 191 mg/L (Less than 5)
[2016-12-26] MEDS: Piperacillin/Tazobactam 3.375 GM in D5% in Water (Mini-Bag+) 100 ML IVPB SCH ×3 (06:13→23:40)
[2016-12-26] MEDS: Nicotine 7 MG PATCH.TD24 TD SCH (08:37)
[2016-12-26] MEDS: Insulin DETEMIR 100 UNIT/ML X5UNITS SQ SCH ×2 (08:39→20:55)
[2016-12-26] MEDS: *HR* HYDROmorphone (PF) 1 MG/ML SYRINGE IVP PRN ×3 (08:56→19:57)
[2016-12-26] MEDS ORDERED: Lidocaine -MPF 1% 5 ML AMPUL INFILT ONE (09:09)
--- NOTE | 2016-12-26 12:37 | Infectious Disease Progress No ---
Date of Encounter: 12/26/16 Time of Encounter: 12:34 - Assessment and Plan (1) Severe sepsis Current Visit: Yes Status: Acute on admission patient had 3 SIRS criteria with FLORA source: diabetic foot infection improving (2) Necrotizing fasciitis Current Visit: Yes Status: Acute noted on MRI causitive organism unclear yet, but likely type 1 necrotizing fasciitis s/p aggressive I&D by Dr. Arguello on 12/25/16; concern for deep infection and early osteomyelitis ESR >130, CRP 248 currently on vancomycin and zosyn continue current regimen until cultures finalize, so far we only have MSSA and gram-positive cocci growing. then we will tailor Abx accordingly monitor kidney function very closely goal vancomycin trough around 15; pharmacy to help patient will need a picc line placement for IV antibioitcs as outpatient duration 6 weeks. please involve social work manager to see if patient can go home or needs to be placed in an extended care facility. Discussed with rehabilitation and discussed with the PICC team. We'll hold off the PICC line until cultures finalize and we'll see what Dr. arguello will do in surgery today. (3) Constipation Current Visit: Yes Status: Acute Resolved Qualifiers: Constipation type: unspecified constipation type Qualified Code(s): K59.00 - Constipation, unspecified (4) Venous stasis dermatitis Current Visit: Yes Status: Acute Qualifiers: Laterality: bilateral Qualified Code(s): I83.11 - Varicose veins of right lower extremity with inflammation; I83.12 - Varicose veins of left lower extremity with inflammation (5) Type 2 diabetes mellitus Current Visit: Yes Status: Chronic Qualifiers: Diabetes mellitus complication status: with skin complications Diabetes mellitus complication detail: with foot ulcer Diabetes mellitus terminal makeup operator insulin use: with terminal makeup operator use Qualified Code(s): E11.621 - Type 2 diabetes mellitus with foot ulcer; L97.509 - Non-pressure chronic ulcer of other part of unspecified foot with unspecified severity; Z79.4 - ferry terminal 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 Patient had a bowel movement yesterday. Denies any chest pain or shortness of breath. No diarrhea. No urinary symptoms. Patient is nothing by mouth because he is going to surgery later today. Infect Dis PN-Objective Data - Labs CBC & Chem 7: 12/26/16 04:15 12/26/16 04:15 Labs: Laboratory Results - last 24 hr 12/25/16 12/25/16 12/26/16 12:39 16:56 00:34 WBC RBC Hgb Hct MCV MCH MCHC RDW Plt Count MPV Immature Gran % Seg Neutrophils % Lymphocytes % Monocytes % Eosinophils % Basophils % Neutrophils # Lymphocytes # Monocytes # Eosinophils # Basophils # ESR Sodium Potassium Chloride Carbon Dioxide BUN Creatinine Est GFR ( Amer) Est GFR (Non-Af Amer) BUN/Creatinine Ratio Glucose POC Glucose 128 H 285 H 306 H Calculated Osmolality Calcium C-Reactive Protein 12/26/16 12/26/16 12/26/16 04:15 04:15 04:15 WBC 11.4 H RBC 3.80 L Hgb 10.9 L Hct 34.5 L MCV 90.8 MCH 28.7 MCHC 31.6 RDW 14.0 Plt Count 348 MPV 10.2 Immature Gran % 2.5 Seg Neutrophils % 79.5 Lymphocytes % 5.9 Monocytes % 10.5 Eosinophils % 1.2 Basophils % 0.4 Neutrophils # 9.1 H Lymphocytes # 0.7 Monocytes # 1.2 Eosinophils # 0.1 Basophils # 0.0 ESR >= 130 H Sodium 138 Potassium 4.2 Chloride 100 Carbon Dioxide 29 BUN 23 D Creatinine 0.82 Est GFR ( Amer) > 60 Est GFR (Non-Af Amer) > 60 BUN/Creatinine Ratio 28 H Glucose 148 H POC Glucose Calculated Osmolality 292 Calcium 9.0 C-Reactive Protein 191 H 12/26/16 12/26/16 05:55 11:13 WBC RBC Hgb Hct MCV MCH MCHC RDW Plt Count MPV Immature Gran % Seg Neutrophils % Lymphocytes % Monocytes % Eosinophils % Basophils % Neutrophils # Lymphocytes # Monocytes # Eosinophils # Basophils # ESR Sodium Potassium Chloride Carbon Dioxide BUN Creatinine Est GFR ( Amer) Est GFR (Non-Af Amer) BUN/Creatinine Ratio Glucose POC Glucose 168 H 162 H Calculated Osmolality Calcium C-Reactive Protein Cultures: Cultures 12/25/16 04:18 Wound Culture - Preliminary Left Foot Gram Positive Cocci Exam - Constitutional Vitals: Temp Pulse Resp BP Pulse Ox 97.7 F 88 20 165/75 100 12/26/16 11:16 12/26/16 11:16 12/26/16 11:16 12/26/16 11:16 12/26/16 11:16 General appearance: no acute distress, obese, no febrile - Head Head exam: Present: atraumatic, normocephalic - Neck Neck exam: Present: full ROM. Absent: meningismus - Respiratory Respiratory exam: Present: CTAB. Absent: wheezes - Cardiovascular Cardiovascular exam: Present: RRR, +S1, +S2 - GI/Abdominal GI/Abdominal exam: Present: normal bowel sounds, soft - Extremities Exam Additional comments: Bilateral venous stasis. Left foot surgically wrapped. - VTE Documentation of Mechanical Device: Intermittent pneumatic compression device Consult Discharge Plan - Plan Referrals: Starla Rodriguez MD [Primary Care Provider] -
--- NOTE | 2016-12-26 13:10 | Internal Med Progress Note ---
Date of Encounter: 12/26/16 Time of Encounter: 09:45 - Assessment and plan (1) Cellulitis of left foot Current Visit: No Status: Acute Assessment and plan: Patient seen and examined this morning during his dressing change of his left foot. Packing removed and area examined. Likely plan is for the patient to be taken back to the OR per podiatry later today. We will continue vancomycin and Zosyn. ID is on board, we will place PICC line as the patient will likely need 6 weeks of IV antibiotics. OT and PT are also on board as the patient may need to be placed. Patient is incorrigible and not receptive to teaching. Leukocytosis trending down. Vital signs stable. We will monitor. 12/25/16 Podiatry is on board. Status post I&D last night with likely repeat trip to the OR tomorrow, nothing by mouth at midnight. We will continue IV thank and Zosyn. Wound culture with staph aureus pansensitive except for resistance to clindamycin and erythromycin. At podiatry's request, will bring infectious disease on board as the patient will likely need 6 weeks of IV antibiotics. Leukocytosis improving. Capillary refill brisk to his toes. Likely placement of wound VAC in the near future. ITS Impressions Foot MRI 12/24/16 16:45 IMPRESSION: 1. Very mild bone marrow edema in the 2nd metatarsal head and base of the 2nd proximal phalanx with normal T1 signal compatible with noninfectious reactive osteitis although early osteomyelitis is not entirely excluded. 2. Medial plantar forefoot soft tissue ulceration with large underlying subcutaneous gas and fluid collection measuring approximately 7.6 x 3 x 1.8 cm. 3. Smaller gas and fluid collection dorsal to the 2nd metatarsal and 2nd proximal phalanx measuring approximately 3.9 x 2.5 x 2.1 cm. D/ / Tal Purvis MD / Tal Purvis MD Interpreting Provider: Tal Purvis MD (2) Staph aureus infection Current Visit: Yes Status: Acute (3) Severe sepsis Current Visit: Yes Status: Acute Assessment and plan: Present on admission and presentation from outlying hospital. Resolving, white count from 18.5 down to 11.4. Heart rate and blood pressure stable. Afebrile. (4) Leukocytosis Current Visit: Yes Status: Acute Assessment and plan: Improving, will continue to trend. Continue IV vancomycin and Zosyn. Infectious disease on board. (5) Acute respiratory failure with hypoxia Current Visit: Yes Status: Acute Assessment and plan: Patient denies shortness of breath above his normal however he is currently on 2 L per nasal cannula, not on oxygen at home. We will continue to trend. (6) Type 2 diabetes mellitus Current Visit: Yes Status: Chronic Assessment and plan: Uncontrolled with A1c of 9.0% on 12/22/16. Sliding scale while admitted. We will attempt further education. 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 (7) Acute kidney injury Current Visit: No Status: Resolved (8) Asthma Current Visit: No Status: Chronic Assessment and plan: No acute exacerbation Qualifiers: Asthma severity: mild intermittent Asthma complication type: with acute exacerbation Qualified Code(s): J45.21 - Mild intermittent asthma with (acute ) exacerbation (9) DVT prophylaxis Current Visit: No Status: Acute Assessment and plan: Subcutaneous heparin (10) 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 12/25/16 Attempted to speak to the patient regarding plan of care however he insisted upon turning up the television and ignoring me. (12) Morbid obesity with BMI of 50.0-59.9, adult Current Visit: No Status: Chronic - Subjective Interval history: Patient seen and examined in concert with bedside RN for wound dressing change. On examination, patient laying on his side in bed and asleep. He awakened easily to voice and stated he would like to be left alone study he can sleep. He denies any pressing issues or concerns at this time. - Constitutional Vitals: Temp Pulse Resp BP Pulse Ox 97.7 F 88 20 165/75 100 12/26/16 11:16 12/26/16 11:16 12/26/16 11:16 12/26/16 11:16 12/26/16 11:16 General appearance: Present: disheveled, A&O X 3, morbidly obese, no acute distress, answers questions appropriately - Head Head exam: Present: atraumatic, normocephalic - Eye Eye exam: Present: PERRL, conjuntiva pink, sclera anicteric Pupils: Present: PERRL - Neck Neck exam general surgery: Present: supple, trachea midline. Absent: lymphadenopathy - Respiratory Respiratory exam: Present: decreased breath sounds (2/2 body habitus). Absent: accessory muscle use, rales, respiratory distress, rhonchi, wheezes - Cardiovascular Cardiovascular exam: Present: RRR, +S1, +S2. Absent: diastolic murmur, gallop, rubs, systolic murmur - GI/Abdominal GI/Abdominal exam: Present: distended, normal bowel sounds, soft, no peritoneal signs. Absent: tenderness - Extremities Exam Extremities exam: Present: pedal edema, warm, radial pulses palpable and symetrical. Absent: calf tenderness, cyanotic - Expanded Lower Extremities Exam Lower Leg exam: Present: erythema, swelling, tenderness Ankle exam: Present: erythema, swelling. Absent: normal inspection Foot/Toe exam: Present: crepitus, erythema, swelling. Absent: normal inspection Neuro vascular tendon exam: Present: abnormal cap refill, decreased fine/light touch Gait: Present: not tested/not observed - Neurological Exam Neurological exam: Present: alert, CN II-XII intact, oriented X3, no focal deficits, strengths equal and symetr throughout. Absent: pronater drift, facial droop, speech deficit - Skin Skin exam: Present: dry, intact, normal color, warm Internal Medicine: Result - Labs CBC & Chem 7: 12/26/16 04:15 12/26/16 04:15 Labs: Short CBC 12/26/16 Range/Units 04:15 WBC 11.4 H (4.3-11.1) K/mcL Hgb 10.9 L (12.9-16.9) g/dL Hct 34.5 L (37.5-50.1) % Plt Count 348 (140-400) K/mcL Neutrophils # 9.1 H (1.6-8.9) K/mcL BMP 12/26/16 04:15 Sodium 138 Potassium 4.2 Chloride 100 Carbon Dioxide 29 BUN 23 D Creatinine 0.82 Glucose 148 H Calcium 9.0 - VTE Documentation of Mechanical Device: Intermittent pneumatic compression device Consult Discharge Plan - Plan Referrals: Starla Rodriguez MD [Primary Care Provider] -
--- NOTE | 2016-12-26 14:59 | Anesthesia Evaluation PreOp ---
Date of Encounter: 12/26/16 Time of Encounter: 14:57 - Past History Planned Operation: I&D Left Foot Cardiac History: HTN, Hyperlipidemia Pulmonary History: Former smoker (quit 1989), Asthma, STEPHIE Dx Other Medical History: Renal (Insuff.), Diabetes Type II (Uncontrolled) Anesthesia History: Past Anesthesia (Ctaracts, Vasectomy, I & D foot) Alcohol Use: none Drug use: none Medications and Allergies Furosemide [Lasix] 80 mg PO DAILY 01/19/16 [History] GlipiZIDE [Glucotrol] 5 mg PO DAILY 01/19/16 [History] Insulin ASPART [NovoLOG] 0 unit SQ TIDWM 01/19/16 [History] Insulin Glargine [Lantus] 90 unit SQ BID 01/19/16 [History] Lisinopril-HCTZ 20-12.5 [Prinzide 20-12.5] 1 each PO DAILY 01/19/16 [History] Albuterol Neb [Proventil Neb] 2.5 mg IH [id number] PRN #0 inhsol 12/24/16 [Rx] Ammonium Lactate [Amlactin] 1 appl TP BID bottle 12/24/16 [Rx] Collagenase Oint [Santyl] 1 appl TP DAILY 12/24/16 [History] Enoxaparin [Lovenox] 40 mg SQ 0700 syringe 12/24/16 [Rx] Gentamicin Sulfate 1 appl TP TID 12/24/16 [History] HYDROcodone/Acet 5/325 mg [[place] 5-325 mg] 1 tab PO Q4HR PRN #0 tablet 12/24/16 [Rx] Nicotine Gum [Nicorette gum] 2 mg BC Q2HWA PRN #0 gum 12/24/16 [Rx] Nystatin POWDER [Nystop] 1 appl TP TID bottle 12/24/16 [Rx] Piperacillin/Tazobactam [Zosyn] 3.375 gm IVPB Q8HR vial 12/24/16 [Rx] Vancomycin [Vancocin] 1 each IVPB RPHPROT vial 12/24/16 [Rx] Vancomycin [Vancocin] 1,000 mg IVPB ONCE vial 12/24/16 [Rx] Vancomycin [Vancocin] 1,000 mg IVPB ONCE vial 12/24/16 [Rx] Vancomycin [Vancocin] 2,000 mg IVPB Q24H vial 12/24/16 [Rx] Allergies codeine Adverse Reaction (Mild, Verified 12/21/16 22:33) Constipation - Meds/Allergy Pre-op Review Medications Reviewed: Yes Allergies Reviewed: Yes Beta Blockers on Current Med List: No Anesthesia Results - Labs 12/26/16 04:15 12/26/16 04:15 Stress 12/21/2015 EF-70% No ischemia Anesthesia Exam O2 Sat Weight 175.4 kg O2 Sat by Pulse Oximetry 100 O2 Sat by Pulse Oximetry 94 O2 Sat by Pulse Oximetry 94 O2 Sat by Pulse Oximetry 94 O2 Sat by Pulse Oximetry 95 O2 Sat by Pulse Oximetry 97 O2 Sat by Pulse Oximetry 97 O2 Sat by Pulse Oximetry 94 O2 Sat by Pulse Oximetry 93 O2 Sat by Pulse Oximetry 93 Vital Signs Temp Pulse Resp BP Pulse Ox 98 F 100 14 116/60 91 L 12/24/16 14:04 12/24/16 14:04 12/24/16 14:04 12/24/16 14:04 12/24/16 14:04 Vital Signs/O2 Sat, Most Current Temp Pulse Resp BP Pulse Ox 97.7 F 88 20 165/75 100 12/26/16 11:16 12/26/16 11:16 12/26/16 11:16 12/26/16 11:16 12/26/16 11:16 Height: 5'10'' Weight: 386# NPO (# of Hours): > 8 hrs Pain Scale: 0 Pain Scale Used: Numeric (1 - 10) - HEENT Pupil (Motor): Pupils equal, EOMI Mallampati: III Teeth: Poor dentition Oral Opening: Greater than 3 - OIL TANKER CAPTAIN LOC: Oriented OIL TANKER CAPTAIN Motor: Normal RUE, Normal LUE, Normal RLE, Normal LLE, Normal Face OIL TANKER CAPTAIN Sensory: Normal: RUE, LUE, RLE, LLE, Face - Cardiac Rhythm: Regular Murmur: None JVD: No Carotid Bruit: No - Pulmonary Breath Sounds: bilateral Clear Respiratory Effort: Symmetrical Anesthesia Assess/Plan ASA Score: 4 Modified [place] Scale for Level of Consciousness: Cooperative, oriented, and tranquil Anesthetic Plan: MAC Autologous Blood: Yes Monitoring Plan: Standard Monitors Recovery Plan: Other
[2016-12-26] MEDS ORDERED: Bupivacaine/Clonidine Syringe 1 EACH SYRINGE ONE (15:40)
[2016-12-26] MEDS ORDERED: *HR* FentaNYL (PF) 100 MCG/2 ML VIAL ONE (15:41)
[2016-12-26] MEDS ORDERED: Propofol 500 MG/50 ML INFUS..BTL ONE (15:41)
--- NOTE | 2016-12-26 21:57 | Operative Note ---
Date of procedure: 12/26/16 Pre-op diagnosis: Infection left foot Post-op diagnosis: same Procedure: Irrigation and debridement of the left foot. Anesthesia: SULEMA Surgeon: Jorge Arguello Estimated blood loss (cc): 5 Specimen: None Condition: stable Disposition: floor Procedure in Detail: The patient was placed in the supine position. The foot was scrubbed prepped and draped in the usual aseptic fashion. A timeout was performed. The incision on the plantar aspect of the foot was inspected. There is noted to be small amounts of necrotic/nonviable tissue which were debrided. The incision measurements were 8 cm in length and 3 cm in width and 2 cm in depth going to the depth of the fascia. Scant amounts of purulence was noted. The attention was then directed to the dorsal incision site which measured approximately 3 cm in length and 1 cm in width and 2 cm in depth. Scant amounts of purulence noted. Both sites were debrided. The debridement included subcutaneous, epidermal, dermal, fascia tissue. After any nonviable and necrotic tissue was debrided from both sites the site was pulse irrigated with copious amounts of normal saline. A wound VAC was applied to the dorsal and plantar incisions. It was noted that the medial portion of the second digit was slightly dusky in appearance and may require amputation at a future time depending on the viability of the toe and how much tissue damage has occurred. At this time amputation is not needed. After the wound vacs were applied a compression dressing was applied all the way up to the knee to try to decrease the significant edema in the right lower extremity. The patient will likely require multiple compression dressings to decrease the edema in his leg. The patient tolerated the procedure and anesthesia well and was transferred to the recovery room with vital signs stable and vascular status intact to both feet. The patient will require at least 6 weeks of IV antibiotics and wound VAC changes every 2-3 days. The patient will likely follow-up with me one week after discharge. The patient would likely do better in a fpc due to his poor living conditions but medical social worker will evaluate more thoroughly.
[2016-12-26] MEDS: *HR* OxyCODONE Immed Rel 5 MG TABLET PO PRN (23:12)
[2016-12-27] MEDS: Insulin LISPRO 300 UNITS/3 ML VIAL SQ SCH ×6 (00:42→21:08)
[2016-12-27] MEDS: *HR* HYDROmorphone (PF) 1 MG/ML SYRINGE IVP PRN (00:44)
[2016-12-27 01:38] LABS: Basophils # 0.1 K/mcL (0.0-0.2); Basophils % 0.7 %; Eosinophils # 0.2 K/mcL (0.0-0.6); Eosinophils % 1.8 %; Immature Granulocytes % 3.9 % (0-4); Lymphocytes # 0.7 K/mcL (0.6-4.6); Lymphocytes % 5.7 %; Mean Corpuscular HGB Conc 30.6 g/dL (31.6-35.5); Mean Corpuscular Hemoglobin 28.2 pg (28.0-33.3); Mean Corpuscular Volume 92.3 fL (83.0-100.0); Mean Platelet Volume 10.2 fL (9.4-12.4); Monocytes # 1.1 K/mcL (0.0-1.3); Neutrophils # 9.8 K/mcL (1.6-8.9); Platelet Count 402 K/mcL (140-400); Segmented Neutrophils % 78.9 %
[2016-12-27 01:51] LABS: BUN/Creatinine Ratio 17 (6-26); Blood Urea Nitrogen 14 mg/dL (8-26); C-Reactive Protein 121 mg/L (Less than 5); Carbon Dioxide 30 mEq/L (19-29); Chloride 98 mEq/L (98-109); Glucose 301 mg/dL (70-99); Osmolality,Calculated 292 (280-300); Potassium 4.8 mEq/L (3.5-4.5); Sodium 135 mEq/L (136-145); eGFR For African Americans > 60 (> 60); eGFR For Non-African Americans > 60 (> 60)
[2016-12-27] MEDS: Ipratropium/Albuterol Neb 3 ML IH SCH ×4 (05:14→22:56)
[2016-12-27] MEDS: 0.9 % Sodium Chloride 1,000 ML IVC SCH ×2 (06:11→06:48)
[2016-12-27] MEDS: Piperacillin/Tazobactam 3.375 GM in D5% in Water (Mini-Bag+) 100 ML IVPB SCH ×3 (06:49→21:11)
[2016-12-27] MEDS: Insulin DETEMIR 100 UNIT/ML X5UNITS SQ SCH ×2 (08:33→21:11)
[2016-12-27] MEDS: Nicotine 7 MG PATCH.TD24 TD SCH (08:33)
[2016-12-27] MEDS: *HR* OxyCODONE Immed Rel 5 MG TABLET PO PRN (08:39)
--- NOTE | 2016-12-27 09:04 | Internal Med Progress Note ---
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 (2) Severe sepsis Current Visit: Yes Status: Acute Assessment and plan: Leukocytosis, tachycardia and FLORA, improving, likely 2/2 nec fas, con't abxs. (3) Type 2 diabetes mellitus Current Visit: Yes Status: Chronic Assessment and plan: Basal and SSI with accucheck ACHS. 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 (5) STEPHIE (obstructive sleep apnea) Current Visit: Yes Status: Acute Assessment and plan: Pt drowsy during the day, will obtain ABG and test of overnight bipap qualification test, possible underlying STEPHIE. (6) DVT prophylaxis Current Visit: No Status: Acute Assessment and plan: Heparin SQ BID. - Subjective Interval history: Pt seen and examined, very drowsy this AM, not really know what is going on, admits pain in left foot. - Constitutional Vitals: Temp Pulse Resp BP Pulse Ox 97.8 F 96 16 127/52 93 L 12/27/16 08:53 12/27/16 08:53 12/27/16 08:53 12/27/16 08:53 12/27/16 08:53 General appearance: Present: A&O X 3, morbidly obese, no acute distress, answers questions appropriately - Head Head exam: Present: atraumatic, normocephalic - Eye Eye exam: Present: PERRL, conjuntiva pink, sclera anicteric Pupils: Present: PERRL - Neck Neck exam general surgery: Present: supple, trachea midline. Absent: lymphadenopathy - Respiratory Respiratory exam: Present: CTAB. Absent: accessory muscle use, rales, rhonchi, wheezes - Cardiovascular Cardiovascular exam: Present: RRR, +S1, +S2. Absent: diastolic murmur, gallop, rubs, systolic murmur - GI/Abdominal GI/Abdominal exam: Present: normal bowel sounds, soft, no peritoneal signs. Absent: distended, tenderness - Extremities Exam Extremities exam: Present: warm, radial pulses palpable and symetrical. Absent : calf tenderness, cyanotic, pedal edema Additional comments: dressing on left foot, wound vac placed - Neurological Exam Neurological exam: Present: CN II-XII intact, oriented X3, no focal deficits. Absent: pronater drift, facial droop, speech deficit - Skin Skin exam: Present: dry, intact Internal Medicine: Result - Labs CBC & Chem 7: 12/27/16 01:20 12/27/16 01:20 Labs: Short CBC 12/27/16 Range/Units 01:20 WBC 12.4 H (4.3-11.1) K/mcL Hgb 11.0 L (12.9-16.9) g/dL Hct 36.0 L (37.5-50.1) % Plt Count 402 H (140-400) K/mcL Neutrophils # 9.8 H (1.6-8.9) K/mcL BMP 12/27/16 01:20 Sodium 135 L Potassium 4.8 H Chloride 98 Carbon Dioxide 30 H BUN 14 Creatinine 0.82 Glucose 301 H Calcium 9.0 - VTE Documentation of Mechanical Device: Venous foot pump, device Consult Discharge Plan - Plan Referrals: Starla Rodriguez MD [Primary Care Provider] - <Trevor Sotomayor - Last Filed: 12/27/16 16:11> - Constitutional Vitals: Temp Pulse Resp BP Pulse Ox 97.5 F L 90 18 135/71 98 12/27/16 11:02 12/27/16 11:02 12/27/16 14:39 12/27/16 11:02 12/27/16 14:39 Internal Medicine: Result - Labs CBC & Chem 7: 12/27/16 01:20 12/27/16 01:20 Labs: Short CBC 12/27/16 Range/Units 01:20 WBC 12.4 H (4.3-11.1) K/mcL Hgb 11.0 L (12.9-16.9) g/dL Hct 36.0 L (37.5-50.1) % Plt Count 402 H (140-400) K/mcL Neutrophils # 9.8 H (1.6-8.9) K/mcL BMP 12/27/16 01:20 Sodium 135 L Potassium 4.8 H Chloride 98 Carbon Dioxide 30 H BUN 14 Creatinine 0.82 Glucose 301 H Calcium 9.0 - ABG Interpretation ABG results: ABG ABG pH 7.36 pH Units (7.32-7.45) 12/27/16 11:22 ABG pCO2 63 mmHg (35-45) H 12/27/16 11:22 ABG pO2 80 mmHg (85-104) L 12/27/16 11:22 ABG O2 Saturation 95 % (95-98) 12/27/16 11:22 - Attending Attestation I examined this patient and my medical decision-making was reviewed with the RECRUITING CONSULTANT/PA/Advanced Practice Nurse/Resident Physician. I agree with the documented findings, disposition and treatment plan as described except to the extent set forth below. Agree with Dr. Walton's findings as documented. Patient seen and examined during rounds with multi disciplinary team. Patient with morbid obesity, underlying diabetes admitted due to necrotizing fasciitis. Continue with broad spectrum antibiotics according to recommendations by our infectious disease team. Gram-positive cocci isolated in the culture, will follow sensitivity. Additionally, patient likely has a component of obstructive sleep apnea, obtained Upon Socialization and Start BiPAP. ABG Noted. Further Evaluation Noted. DVT Prophylaxis According to Hospital Protocol. Patient Would Benefit from Placement to an Extended Care Facility. Antibiotic for Long-Term Likely 6 Weeks. We Will Follow with ID.
[2016-12-27 11:35] LABS: ABG Base Excess 8.4 mEq/L (-2.0 to 3.0); ABG HCO3 31.5 mEQ/L (21-27); ABG Oxygen Saturation 95 % (95-98); ABG PCO2 63 mmHg (35-45); ABG PH 7.36 pH Units (7.32-7.45); ABG PO2 80 mmHg (85-104); ABG TCO2 37.5 mEq/L (20-26); Blood Gas FiO2 36 %
[2016-12-27] MEDS: Vancomycin 1,750 MG in D5% in Water 500 ML IVPB SCH (14:00)
--- NOTE | 2016-12-27 14:11 | Podiatry Progress Note ---
Date of Encounter: 12/27/16 Time of Encounter: 11:45 - Assessment and Plan (1) Diabetic infection of left foot Current Visit: No Status: Acute Wound vac intact and running without issue- CASSIUS removed to assess LLE- replaced Awaiting final c.s of wound- prelim gram + cocci will likely need 6 weeks IV antibiotic therapy SW to plan for discharge OK to discharge from podiatry stand point with MWF vac changes and will see in office with Dr sessions in 1-2 weeks Medical to follow with current lethargic state Will need post op shoe at discharge Please call with any concerns with surgical site or wound vac Subjective Interval history: Patient is s/p Irrigation and debridement of the left foot with . Sessions. Operation #1 on 12/25 and a second debridement on 12/26 with wound vac placement. Patient is lethargic on arrival. Awake for short periods of time with 1-2 word answers. Follows commands for a few min and then drifts back to sleep. RT at bedside, HAYLIE and bipap has been ordered at this time per internal medicine. Wound vac intact and running without issue on arrival. 50ml bloody drainage noted to VAC canister. Patient denies any fevers, chills or calf pain. Objective - Vital Signs Vital Signs: Vital Signs Temp Pulse Resp BP Pulse Ox 12/27/16 11:30 18 98 12/27/16 11:02 97.5 F L 90 20 135/71 93 L 12/27/16 08:53 97.8 F 96 16 127/52 93 L 12/27/16 05:46 98.4 F 91 15 158/70 93 L 12/27/16 05:14 17 97 12/26/16 23:28 98.0 F 96 15 135/66 98 12/26/16 23:00 18 98 12/26/16 20:02 98.4 F 93 16 131/71 93 L 12/26/16 19:00 97.5 F L 93 20 120/71 98 12/26/16 18:25 90 130/70 98 12/26/16 18:00 95 125/81 12/26/16 17:56 87 119/85 98 12/26/16 17:40 87 123/79 96 12/26/16 17:25 88 125/73 98 12/26/16 17:05 97.5 F L 84 124/74 99 Intake and Output 12/26/16 12/27/16 12/27/16 23:59 07:59 15:59 Intake Total 100 / 100 500 / 500 100 / 100 Output Total 475 / 475 20 500 / 500 Balance -375 / -375 480 / 480 -400 / -400 Intake: IV Fluids 100 / 100 500 / 500 100 / 100 Zosyn 3.375 GM In 100 / 100 100 / 100 Dextrose 5% (Minibag+) 100 ML 100 ML @ 25 mls/hr IVPB Q8H [facility] Rx#: [id number] Vancocin 1,750 MG In 500 / 500 Dextrose 5% 500 ML @ 333. 333 mls/hr IVPB Q12H [facility] Rx#:[id number] Oral 0 / 0 0 / 0 Output: Urine 475 / 475 0 / 0 500 / 500 Wound Drainage 0 / 0 20 Left Foot 0 / 0 Other: # Voids 2 Blood Glucose* 235 111 165 - Exam Exam: General Examination: CONSTITUTIONAL: Lethargic, difficult to arouse on arrival EXTREMITIES: CFT 3 seconds all toes. Edema +2 and pedal pulses palpable. NEUROLOGIC:Loss of sensation with moderate touch No calf pain with palpation Surgical site- VAC in place, clean dry and intact- CASSIUS wraps surrounding vac and providing compression for LLE edema Edema and erythema continues to left foot at this time Mild warmth noted Drainage to vac bloody- 50 ml noted - Lab Result Diagrams: 12/27/16 01:20 12/27/16 01:20 Labs: Abnormal lab results WBC 12.4 K/mcL (4.3-11.1) H 12/27/16 01:20 RBC 3.90 M/mcL (4.19-5.50) L 12/27/16 01:20 Hgb 11.0 g/dL (12.9-16.9) L 12/27/16 01:20 Hct 36.0 % (37.5-50.1) L 12/27/16 01:20 MCHC 30.6 g/dL (31.6-35.5) L 12/27/16 01:20 Plt Count 402 K/mcL (140-400) H 12/27/16 01:20 Neutrophils # 9.8 K/mcL (1.6-8.9) H 12/27/16 01:20 ESR 88 mm/hr (0-10) H 12/27/16 01:20 ABG pCO2 63 mmHg (35-45) H 12/27/16 11:22 ABG pO2 80 mmHg (85-104) L 12/27/16 11:22 ABG HCO3 31.5 mEQ/L (21-27) H 12/27/16 11:22 ABG Total CO2 37.5 mEq/L (20-26) H 12/27/16 11:22 ABG Base Excess 8.4 mEq/L (-2.0 to 3.0) H 12/27/16 11:22 Sodium 135 mEq/L (136-145) L 12/27/16 01:20 Potassium 4.8 mEq/L (3.5-4.5) H 12/27/16 01:20 Carbon Dioxide 30 mEq/L (19-29) H 12/27/16 01:20 Glucose 301 mg/dL (70-99) H 12/27/16 01:20 POC Glucose 165 (58-89) H 12/27/16 11:00 C-Reactive Protein 121 mg/L (Less than 5) H 12/27/16 01:20 Microbiology, Last 48 Hours 12/25/16 04:18 Wound Culture - Preliminary Left Foot Gram Positive Cocci - VTE Documentation of Mechanical Device: Venous foot pump, device Consult Discharge Plan - Plan Referrals: Starla Rodriguez MD [Primary Care Provider] -
[2016-12-27] MEDS: *HR* Heparin 5,000 UNIT/ML VIAL SQ SCH (18:31)
[2016-12-28] MEDS: Vancomycin 1,750 MG in D5% in Water 500 ML IVPB SCH ×2 (01:42→13:03)
[2016-12-28] MEDS: Ipratropium/Albuterol Neb 3 ML IH SCH ×4 (04:40→23:28)
[2016-12-28] MEDS: Piperacillin/Tazobactam 3.375 GM in D5% in Water (Mini-Bag+) 100 ML IVPB SCH (05:58)
[2016-12-28] MEDS: *HR* Heparin 5,000 UNIT/ML VIAL SQ SCH ×2 (05:58→18:03)
[2016-12-28] MEDS: *HR* OxyCODONE Immed Rel 5 MG TABLET PO PRN ×3 (05:59→18:03)
[2016-12-28 06:13] LABS: Basophils # 0.1 K/mcL (0.0-0.2); Basophils % 0.7 %; Eosinophils # 0.2 K/mcL (0.0-0.6); Hematocrit 36.1 % (37.5-50.1); Hemoglobin 11.3 g/dL (12.9-16.9); Immature Granulocytes % 3.2 % (0-4); Lymphocytes # 0.7 K/mcL (0.6-4.6); Lymphocytes % 6.8 %; Mean Corpuscular HGB Conc 31.3 g/dL (31.6-35.5); Mean Corpuscular Volume 92.6 fL (83.0-100.0); Mean Platelet Volume 10.3 fL (9.4-12.4); Monocytes % 9.1 %; Neutrophils # 8.4 K/mcL (1.6-8.9); Platelet Count 405 K/mcL (140-400); Red Cell Distribution Width 13.8 % (11.5-14.5); Segmented Neutrophils % 78.2 %
[2016-12-28 06:29] LABS: BUN/Creatinine Ratio 13 (6-26); Blood Urea Nitrogen 10 mg/dL (8-26); Calcium 9.2 mg/dL (8.6-10.8); Carbon Dioxide 32 mEq/L (19-29); Chloride 98 mEq/L (98-109); Glucose 169 mg/dL (70-99); Osmolality,Calculated 289 (280-300); Potassium 4.8 mEq/L (3.5-4.5); Sodium 138 mEq/L (136-145); eGFR For African Americans > 60 (> 60); eGFR For Non-African Americans > 60 (> 60)
--- NOTE | 2016-12-28 08:52 | Internal Med Progress Note ---
<Dk Walton - Last Filed: 12/28/16 13:39> Date of Encounter: 12/28/16 Time of Encounter: 08:52 - Assessment and plan (1) Necrotizing fasciitis Current Visit: Yes Status: Acute Assessment and plan: S/p irrigation and debridement, had two procedures, wound vac placed, spoke to podiatry team, okay to d/c from their standpoint and f/u in the clinic, change wound vac MWF, culture came back and it was MSSA, sensitivity reviewed, con't vanco and will stop zosyn, bld culture obtained, if negative for 48 hrs, picc team will place picc line, likely on Saturday. (2) Severe sepsis Current Visit: Yes Status: Acute Assessment and plan: Leukocytosis, tachycardia and FLORA, improving, likely 2/2 nec fas, con't abxs. (3) Type 2 diabetes mellitus Current Visit: Yes Status: Chronic Assessment and plan: Basal and SSI with accucheck ACHS. Qualifiers: Diabetes mellitus complication status: with skin complications Diabetes mellitus complication detail: with foot ulcer Diabetes mellitus jail insulin use: with terminal computer operator use Qualified Code(s): E11.621 - Type 2 diabetes mellitus with foot ulcer; L97.509 - Non-pressure chronic ulcer of other part of unspecified foot with unspecified severity; Z79.4 - assisted (current) use of insulin (4) Morbid obesity with BMI of 50.0-59.9, adult Current Visit: No Status: Chronic Assessment and plan: Diet and lifestyle modifications. Code(s): E66.01 - Morbid (severe) obesity due to excess calories; Z68.43 - Body mass index (BMI) 50-59.9 , adult (5) STEPHIE (obstructive sleep apnea) Current Visit: Yes Status: Acute Assessment and plan: ABG and overnight bipap test to qualify him for outpt bipap. (6) DVT prophylaxis Current Visit: No Status: Acute Assessment and plan: Heparin SQ BID. - Subjective Interval history: Pt seen and examined, more alert today, he stated that bipap helped him a lot yesterday, pain in left foot is same. - Constitutional Vitals: Temp Pulse Resp BP Pulse Ox 97.8 F 91 18 126/74 94 L 12/28/16 06:36 12/28/16 06:36 12/28/16 06:36 12/28/16 06:36 12/28/16 06:36 General appearance: Present: cooperative, A&O X 3, morbidly obese, no acute distress, answers questions appropriately - Head Head exam: Present: atraumatic, normocephalic - Eye Eye exam: Present: PERRL, conjuntiva pink, sclera anicteric Pupils: Present: PERRL - Neck Neck exam general surgery: Present: supple, trachea midline. Absent: lymphadenopathy - Respiratory Respiratory exam: Present: CTAB. Absent: accessory muscle use, rales, rhonchi, wheezes - Cardiovascular Cardiovascular exam: Present: RRR, +S1, +S2. Absent: diastolic murmur, gallop, rubs, systolic murmur - GI/Abdominal GI/Abdominal exam: Present: normal bowel sounds, soft, no peritoneal signs. Absent: distended, tenderness - Extremities Exam Extremities exam: Present: tenderness (wound vac on left foot, tender to touch) , warm, radial pulses palpable and symetrical. Absent: calf tenderness, cyanotic, pedal edema - Neurological Exam Neurological exam: Present: CN II-XII intact, oriented X3, no focal deficits. Absent: pronater drift, facial droop, speech deficit - Skin Skin exam: Present: dry, intact Internal Medicine: Result - Labs CBC & Chem 7: 12/28/16 05:04 12/28/16 05:04 Labs: Short CBC 12/28/16 Range/Units 05:04 WBC 10.8 (4.3-11.1) K/mcL Hgb 11.3 L (12.9-16.9) g/dL Hct 36.1 L (37.5-50.1) % Plt Count 405 H (140-400) K/mcL Neutrophils # 8.4 (1.6-8.9) K/mcL BMP 12/28/16 05:04 Sodium 138 Potassium 4.8 H Chloride 98 Carbon Dioxide 32 H BUN 10 Creatinine 0.77 Glucose 169 H Calcium 9.2 - ABG Interpretation ABG results: ABG ABG pH 7.36 pH Units (7.32-7.45) 12/27/16 11:22 ABG pCO2 63 mmHg (35-45) H 12/27/16 11:22 ABG pO2 80 mmHg (85-104) L 12/27/16 11:22 ABG O2 Saturation 95 % (95-98) 12/27/16 11:22 - VTE Documentation of Mechanical Device: Venous foot pump, device Consult Discharge Plan - Plan Referrals: Starla Rodriguez MD [Primary Care Provider] - 12/31/16 3:00 pm <Trevor Sotomayor - Last Filed: 12/28/16 14:45> - Constitutional Vitals: Temp Pulse Resp BP Pulse Ox 97.2 F L 90 18 125/73 97 12/28/16 10:28 12/28/16 10:28 12/28/16 10:28 12/28/16 10:28 12/28/16 10:28 Internal Medicine: Result - Labs CBC & Chem 7: 12/28/16 05:04 12/28/16 05:04 Labs: Short CBC 12/28/16 Range/Units 05:04 WBC 10.8 (4.3-11.1) K/mcL Hgb 11.3 L (12.9-16.9) g/dL Hct 36.1 L (37.5-50.1) % Plt Count 405 H (140-400) K/mcL Neutrophils # 8.4 (1.6-8.9) K/mcL BMP 12/28/16 05:04 Sodium 138 Potassium 4.8 H Chloride 98 Carbon Dioxide 32 H BUN 10 Creatinine 0.77 Glucose 169 H Calcium 9.2 - ABG Interpretation ABG results: ABG ABG pH 7.36 pH Units (7.32-7.45) 12/27/16 11:22 ABG pCO2 63 mmHg (35-45) H 12/27/16 11:22 ABG pO2 80 mmHg (85-104) L 12/27/16 11:22 ABG O2 Saturation 95 % (95-98) 12/27/16 11:22 - Attending Attestation Mr. Roman was seen and examined during medical problems. I agree with the physical examination findings, assessment and plan documented by the resident Dr. Dk Walton. Briefly, patient has methicillin sensitive staphylococcal aureus isolated in his wound. We will continue with IV antibiotics for his necrotizing fasciitis. He is doing clinically well, additionally the patient has morbid obesity and CO2 retention. He looks more alert than yesterday after the use of BiPAP. We will continue with the same. Plan is to discharge him to subacute rehabilitation center after PICC line placement and to continue antibiotics to complete 6 weeks.
[2016-12-28] MEDS: Insulin LISPRO 300 UNITS/3 ML VIAL SQ SCH ×7 (08:59→21:21)
[2016-12-28] MEDS: Nicotine 7 MG PATCH.TD24 TD SCH (09:03)
[2016-12-28] MEDS: Insulin DETEMIR 100 UNIT/ML X5UNITS SQ SCH ×2 (09:03→20:16)
[2016-12-29] MEDS: *HR* OxyCODONE Immed Rel 5 MG TABLET PO PRN ×2 (00:45→08:38)
[2016-12-29] MEDS: Vancomycin 1,750 MG in D5% in Water 500 ML IVPB SCH ×2 (03:55→15:04)
[2016-12-29] MEDS: Ipratropium/Albuterol Neb 3 ML IH SCH ×4 (04:56→23:17)
[2016-12-29 05:08] LABS: Basophils # 0.1 K/mcL (0.0-0.2); Basophils % 0.6 %; Eosinophils # 0.2 K/mcL (0.0-0.6); Eosinophils % 1.7 %; Hematocrit 36.5 % (37.5-50.1); Hemoglobin 11.4 g/dL (12.9-16.9); Immature Granulocytes % 3.6 % (0-4); Lymphocytes # 0.8 K/mcL (0.6-4.6); Mean Corpuscular HGB Conc 31.2 g/dL (31.6-35.5); Mean Corpuscular Hemoglobin 28.7 pg (28.0-33.3); Mean Corpuscular Volume 91.9 fL (83.0-100.0); Mean Platelet Volume 9.8 fL (9.4-12.4); Monocytes # 0.8 K/mcL (0.0-1.3); Monocytes % 7.4 %; Neutrophils # 8.1 K/mcL (1.6-8.9); Platelet Count 435 K/mcL (140-400); Red Blood Count 3.97 M/mcL (4.19-5.50); Red Cell Distribution Width 13.8 % (11.5-14.5); Segmented Neutrophils % 78.7 %
[2016-12-29 05:28] LABS: BUN/Creatinine Ratio 15 (6-26); Blood Urea Nitrogen 14 mg/dL (8-26); Calcium 9.3 mg/dL (8.6-10.8); Carbon Dioxide 30 mEq/L (19-29); Chloride 98 mEq/L (98-109); Glucose 196 mg/dL (70-99); Osmolality,Calculated 290 (280-300); Potassium 4.8 mEq/L (3.5-4.5); Sodium 137 mEq/L (136-145); eGFR For African Americans > 60 (> 60); eGFR For Non-African Americans > 60 (> 60)
[2016-12-29] MEDS: *HR* Heparin 5,000 UNIT/ML VIAL SQ SCH ×2 (06:13→20:11)
--- NOTE | 2016-12-29 07:41 | Internal Med Progress Note ---
<Dk Walton - Last Filed: 12/29/16 15:33> Date of Encounter: 12/29/16 Time of Encounter: 07:41 - Assessment and plan (1) Necrotizing fasciitis Current Visit: Yes Status: Acute Assessment and plan: S/p irrigation and debridement, had two procedures, wound vac placed, spoke to podiatry team, okay to d/c from their standpoint and f/u in the clinic, change wound vac MWF, culture came back and it was MSSA, sensitivity reviewed, con't vanco, bld culture obtained, if negative for 48 hrs, picc team will place picc line, likely on Saturday. (2) Severe sepsis Current Visit: Yes Status: Acute Assessment and plan: Leukocytosis, tachycardia and FLORA, resolved, likely 2/2 nec fas, con't abxs. (3) Type 2 diabetes mellitus Current Visit: Yes Status: Chronic Assessment and plan: Basal and SSI with accucheck ACHS. Qualifiers: Diabetes mellitus complication status: with skin complications Diabetes mellitus complication detail: with foot ulcer Diabetes mellitus snf insulin use: with snf use Qualified Code(s): E11.621 - Type 2 diabetes mellitus with foot ulcer; L97.509 - Non-pressure chronic ulcer of other part of unspecified foot with unspecified severity; Z79.4 - intermediate (current) use of insulin (4) Morbid obesity with BMI of 50.0-59.9, adult Current Visit: No Status: Chronic Assessment and plan: Diet and lifestyle modifications. Code(s): E66.01 - Morbid (severe) obesity due to excess calories; Z68.43 - Body mass index (BMI) 50-59.9 , adult (5) STEPHIE (obstructive sleep apnea) Current Visit: Yes Status: Acute Assessment and plan: ABG and overnight bipap test to qualify him for outpt bipap. (6) DVT prophylaxis Current Visit: No Status: Acute Assessment and plan: Heparin SQ BID. - Subjective Interval history: Pt seen and examined, no pain or complaints today, still no bowel movement. - Constitutional Vitals: Temp Pulse Resp BP Pulse Ox 97.7 F 93 20 125/68 97 12/29/16 03:15 12/29/16 03:15 12/29/16 04:56 12/29/16 03:15 12/29/16 04:56 General appearance: Present: cooperative, A&O X 3, morbidly obese, no acute distress, answers questions appropriately - Head Head exam: Present: atraumatic, normocephalic - Eye Eye exam: Present: PERRL, conjuntiva pink, sclera anicteric Pupils: Present: PERRL - Neck Neck exam general surgery: Present: supple, trachea midline. Absent: lymphadenopathy - Respiratory Respiratory exam: Present: CTAB. Absent: accessory muscle use, rales, rhonchi, wheezes - Cardiovascular Cardiovascular exam: Present: RRR, +S1, +S2. Absent: diastolic murmur, gallop, rubs, systolic murmur - GI/Abdominal GI/Abdominal exam: Present: normal bowel sounds, soft, no peritoneal signs. Absent: distended, tenderness - Extremities Exam Extremities exam: Present: tenderness (left foot with dressing and wound vac on. ), warm, radial pulses palpable and symetrical. Absent: calf tenderness, cyanotic, pedal edema - Neurological Exam Neurological exam: Present: CN II-XII intact, oriented X3, no focal deficits. Absent: pronater drift, facial droop, speech deficit - Skin Skin exam: Present: dry, intact Internal Medicine: Result - Labs CBC & Chem 7: 12/29/16 04:56 12/29/16 04:56 Labs: Short CBC 12/29/16 Range/Units 04:56 WBC 10.3 (4.3-11.1) K/mcL Hgb 11.4 L (12.9-16.9) g/dL Hct 36.5 L (37.5-50.1) % Plt Count 435 H (140-400) K/mcL Neutrophils # 8.1 (1.6-8.9) K/mcL BMP 12/29/16 04:56 Sodium 137 Potassium 4.8 H Chloride 98 Carbon Dioxide 30 H BUN 14 Creatinine 0.91 Glucose 196 H Calcium 9.3 - ABG Interpretation ABG results: ABG ABG pH 7.36 pH Units (7.32-7.45) 12/27/16 11:22 ABG pCO2 63 mmHg (35-45) H 12/27/16 11:22 ABG pO2 80 mmHg (85-104) L 12/27/16 11:22 ABG O2 Saturation 95 % (95-98) 12/27/16 11:22 - VTE Documentation of Mechanical Device: Venous foot pump, device Consult Discharge Plan - Plan Referrals: Starla Rodriguez MD [Primary Care Provider] - 12/31/16 3:00 pm <Trevor Sotomayor - Last Filed: 12/29/16 17:51> - Constitutional Vitals: Temp Pulse Resp BP Pulse Ox 97.5 F L 91 16 115/65 99 12/29/16 15:26 12/29/16 15:26 12/29/16 16:30 12/29/16 15:26 12/29/16 16:30 Internal Medicine: Result - Labs CBC & Chem 7: 12/29/16 04:56 12/29/16 04:56 Labs: Short CBC 12/29/16 Range/Units 04:56 WBC 10.3 (4.3-11.1) K/mcL Hgb 11.4 L (12.9-16.9) g/dL Hct 36.5 L (37.5-50.1) % Plt Count 435 H (140-400) K/mcL Neutrophils # 8.1 (1.6-8.9) K/mcL BMP 12/29/16 04:56 Sodium 137 Potassium 4.8 H Chloride 98 Carbon Dioxide 30 H BUN 14 Creatinine 0.91 Glucose 196 H Calcium 9.3 - ABG Interpretation ABG results: ABG ABG pH 7.36 pH Units (7.32-7.45) 12/27/16 11:22 ABG pCO2 63 mmHg (35-45) H 12/27/16 11:22 ABG pO2 80 mmHg (85-104) L 12/27/16 11:22 ABG O2 Saturation 95 % (95-98) 12/27/16 11:22 - Attending Attestation I examined this patient and my medical decision-making was reviewed with the WEB DESIGNER/PA/Advanced Practice Nurse/Resident Physician. I agree with the documented findings, disposition and treatment plan as described except to the extent set forth below. Mr. Roman was seen and examined. We will continue with IV antibiotics according to sensitivity. Awaiting for placement of PICC line. Follow blood cultures. Lactulose and MiraLAX orally for constipation. Continue monitoring the patient closely. Continue with BiPAP.
[2016-12-29] MEDS: Nicotine 7 MG PATCH.TD24 TD SCH (08:37)
[2016-12-29] MEDS: Insulin DETEMIR 100 UNIT/ML X5UNITS SQ SCH ×2 (08:38→20:12)
[2016-12-29] MEDS: Insulin LISPRO 300 UNITS/3 ML VIAL SQ SCH ×7 (08:41→20:13)
[2016-12-29] MEDS: Lactulose Oral Soln 20 GM/30 ML UDC PO SCH ×2 (12:02→20:11)
[2016-12-29] MEDS: Acetaminophen 325 MG TABLET PO PRN (12:06)
[2016-12-30] MEDS: Vancomycin 1,750 MG in D5% in Water 500 ML IVPB SCH (02:50)
[2016-12-30] MEDS: Ipratropium/Albuterol Neb 3 ML IH SCH ×4 (04:28→22:28)
[2016-12-30 04:49] LABS: BUN/Creatinine Ratio 15 (6-26); Blood Urea Nitrogen 15 mg/dL (8-26); Calcium 9.4 mg/dL (8.6-10.8); Carbon Dioxide 31 mEq/L (19-29); Chloride 99 mEq/L (98-109); Glucose 173 mg/dL (70-99); Osmolality,Calculated 295 (280-300); Potassium 4.9 mEq/L (3.5-4.5); Sodium 140 mEq/L (136-145); eGFR For African Americans > 60 (> 60); eGFR For Non-African Americans > 60 (> 60)
--- NOTE | 2016-12-30 07:24 | Internal Med Progress Note ---
<Dk Walton - Last Filed: 12/30/16 15:47> Date of Encounter: 12/30/16 Time of Encounter: 07:24 - Assessment and plan (1) Necrotizing fasciitis Current Visit: Yes Status: Acute Assessment and plan: S/p irrigation and debridement, had two procedures, wound vac placed, spoke to podiatry team, okay to d/c from their standpoint and f/u in the clinic, change wound vac MWF, culture came back and it was MSSA, sensitivity reviewed, will switch to ancef IV, bld culture obtained, if negative for 48 hrs, picc team will place picc line, likely on Saturday. (2) Severe sepsis Current Visit: Yes Status: Acute Assessment and plan: Leukocytosis, tachycardia and FLORA, resolved, likely 2/2 nec fas, con't abxs. (3) Type 2 diabetes mellitus Current Visit: Yes Status: Chronic Assessment and plan: Basal and SSI with accucheck ACHS. Qualifiers: Diabetes mellitus complication status: with skin complications Diabetes mellitus complication detail: with foot ulcer Diabetes mellitus skilled nursing insulin use: with intermediate project manager use Qualified Code(s): E11.621 - Type 2 diabetes mellitus with foot ulcer; L97.509 - Non-pressure chronic ulcer of other part of unspecified foot with unspecified severity; Z79.4 - intermediate project manager (current) use of insulin (4) Morbid obesity with BMI of 50.0-59.9, adult Current Visit: No Status: Chronic Assessment and plan: Diet and lifestyle modifications. Code(s): E66.01 - Morbid (severe) obesity due to excess calories; Z68.43 - Body mass index (BMI) 50-59.9 , adult (5) STEPHIE (obstructive sleep apnea) Current Visit: Yes Status: Acute Assessment and plan: ABG and overnight bipap test to qualify him for outpt bipap. (6) DVT prophylaxis Current Visit: No Status: Acute Assessment and plan: Heparin SQ BID. - Subjective Interval history: Pt seen and examined, no pain or complaints today, had bowel movement. - Constitutional Vitals: Temp Pulse Resp BP Pulse Ox 98.6 F 70 17 129/82 96 12/30/16 07:04 12/30/16 07:04 12/30/16 07:04 12/30/16 07:04 12/30/16 07:04 General appearance: Present: cooperative, A&O X 3, morbidly obese, no acute distress, answers questions appropriately - Head Head exam: Present: atraumatic, normocephalic - Eye Eye exam: Present: PERRL, conjuntiva pink, sclera anicteric Pupils: Present: PERRL - Neck Neck exam general surgery: Present: supple, trachea midline. Absent: lymphadenopathy - Respiratory Respiratory exam: Present: CTAB. Absent: accessory muscle use, rales, rhonchi, wheezes - Cardiovascular Cardiovascular exam: Present: RRR, +S1, +S2. Absent: diastolic murmur, gallop, rubs, systolic murmur - GI/Abdominal GI/Abdominal exam: Present: normal bowel sounds, soft, no peritoneal signs. Absent: distended, tenderness - Extremities Exam Extremities exam: Present: tenderness (left foor with dressing and wound vac on) , warm, radial pulses palpable and symetrical. Absent: calf tenderness, cyanotic, pedal edema - Neurological Exam Neurological exam: Present: CN II-XII intact, oriented X3, no focal deficits. Absent: pronater drift, facial droop, speech deficit - Skin Skin exam: Present: dry, intact Internal Medicine: Result - Labs CBC & Chem 7: 12/29/16 04:56 12/30/16 03:58 Labs: BMP 12/30/16 03:58 Sodium 140 Potassium 4.9 H Chloride 99 Carbon Dioxide 31 H BUN 15 Creatinine 1.01 Glucose 173 H Calcium 9.4 - ABG Interpretation ABG results: ABG ABG pH 7.36 pH Units (7.32-7.45) 12/27/16 11:22 ABG pCO2 63 mmHg (35-45) H 12/27/16 11:22 ABG pO2 80 mmHg (85-104) L 12/27/16 11:22 ABG O2 Saturation 95 % (95-98) 12/27/16 11:22 - VTE Documentation of Mechanical Device: Venous foot pump, device Consult Discharge Plan - Plan Referrals: Starla Rodriguez MD [Primary Care Provider] - 12/31/16 3:00 pm <Trevor Sotomayor - Last Filed: 12/30/16 17:30> - Constitutional Vitals: Temp Pulse Resp BP Pulse Ox 98.0 F 97 18 151/81 100 12/30/16 14:25 12/30/16 14:25 12/30/16 16:44 12/30/16 14:25 12/30/16 16:44 Internal Medicine: Result - Labs CBC & Chem 7: 12/29/16 04:56 12/30/16 03:58 Labs: BMP 12/30/16 03:58 Sodium 140 Potassium 4.9 H Chloride 99 Carbon Dioxide 31 H BUN 15 Creatinine 1.01 Glucose 173 H Calcium 9.4 - ABG Interpretation ABG results: ABG ABG pH 7.36 pH Units (7.32-7.45) 12/27/16 11:22 ABG pCO2 63 mmHg (35-45) H 12/27/16 11:22 ABG pO2 80 mmHg (85-104) L 12/27/16 11:22 ABG O2 Saturation 95 % (95-98) 12/27/16 11:22 - Attending Attestation I examined this patient and my medical decision-making was reviewed with the MARKETING DEVELOPMENT REPRESENTATIVE/PA/Advanced Practice Nurse/Resident Physician. I agree with the documented findings, disposition and treatment plan as described except to the extent set forth below. Necrotizing fasciitis. Methicillin sensitive staphylococcal aureus. On IV antibiotics according to cultures. Pending PICC line placement for continuity of care and discharge to rehabilitation. Sleep apnea, on BiPAP. Uncontrolled diabetes. Patient is for discharge to rehabilitation once IV access is established.
[2016-12-30] MEDS: Nicotine 7 MG PATCH.TD24 TD SCH (07:52)
[2016-12-30] MEDS: Lactulose Oral Soln 20 GM/30 ML UDC PO SCH ×2 (07:53→20:58)
[2016-12-30] MEDS: Insulin DETEMIR 100 UNIT/ML X5UNITS SQ SCH ×2 (07:53→20:59)
[2016-12-30] MEDS: Insulin LISPRO 300 UNITS/3 ML VIAL SQ SCH ×7 (07:54→20:58)
[2016-12-30] MEDS: *HR* Heparin 5,000 UNIT/ML VIAL SQ SCH ×2 (08:16→18:02)
[2016-12-30] MEDS ORDERED: Aminoglycoside Consult 1 EACH MC ONE (09:36)
[2016-12-30] MEDS: ceFAZolin 1,000 MG in D5% in Water (Mini-Bag+) 100 ML IVPB SCH ×2 (16:17→23:37)
--- NOTE | 2016-12-30 16:30 | Podiatry Progress Note ---
Date of Encounter: 12/30/16 Time of Encounter: 16:26 - Assessment and Plan (1) Diabetic infection of left foot Current Visit: No Status: Acute Continue IV antibiotics per infectious disease. Wound VAC changes every 2-3 days. Minimize weightbearing and dispense a surgical shoe. Follow-up in my clinic one week after discharge. Subjective Principal diagnosis: Left foot infection Interval history: Patient relates that he has been feeling much better. Patient relates that his pain is minimal. Patient states that his foot appears to be less swollen. Objective - Vital Signs Vital Signs: Vital Signs Temp Pulse Resp BP Pulse Ox 12/30/16 14:25 98.0 F 97 18 151/81 94 L 12/30/16 11:41 16 99 12/30/16 10:39 98.7 F 74 17 147/77 97 12/30/16 07:04 98.6 F 70 17 129/82 96 12/30/16 04:28 20 91 L 12/30/16 03:42 97.8 F 93 16 121/67 95 12/29/16 23:49 97.4 F L 92 18 123/71 93 L 12/29/16 23:17 18 92 L 12/29/16 18:46 97.9 F 98 18 152/65 93 L 12/29/16 16:30 16 99 Intake and Output 12/30/16 12/30/16 12/30/16 07:59 15:59 23:59 Intake Total 700 / 700 1760 / 1760 Output Total 600 / 600 1025 / 1025 Balance 100 / 100 735 / 735 Intake: IV Fluids 500 / 500 Vancocin 1,750 MG In 500 / 500 Dextrose 5% 500 ML @ 333. 333 mls/hr IVPB Q12H [facility] Rx#:[id number] Oral 200 / 200 1760 / 1760 Output: Urine 600 / 600 1025 / 1025 Wound Drainage 0 / 0 Left Dorsal Foot 0 / 0 Left Foot 0 / 0 Left Plantar Foot 0 / 0 Other: Meal Lunch Percent of Meal Consumed 100% Weight 163.322 kg Blood Glucose* 146 192 Patient Weight 12/30/16 23:59 Weight 163.322 kg - Exam Exam: The wound VAC is intact. Capillary fill time is intact to the digits. There are no new open lesions. Sensation is diminished consistent with prior exam and peripheral neuropathy. No new erythema present. Incision: Present: healing - Lab Result Diagrams: 12/29/16 04:56 12/30/16 03:58 Labs: Abnormal lab results RBC 3.97 M/mcL (4.19-5.50) L 12/29/16 04:56 Hgb 11.4 g/dL (12.9-16.9) L 12/29/16 04:56 Hct 36.5 % (37.5-50.1) L 12/29/16 04:56 MCHC 31.2 g/dL (31.6-35.5) L 12/29/16 04:56 Plt Count 435 K/mcL (140-400) H 12/29/16 04:56 ESR 88 mm/hr (0-10) H 12/27/16 01:20 ABG pCO2 63 mmHg (35-45) H 12/27/16 11:22 ABG pO2 80 mmHg (85-104) L 12/27/16 11:22 ABG HCO3 31.5 mEQ/L (21-27) H 12/27/16 11:22 ABG Total CO2 37.5 mEq/L (20-26) H 12/27/16 11:22 ABG Base Excess 8.4 mEq/L (-2.0 to 3.0) H 12/27/16 11:22 Potassium 4.9 mEq/L (3.5-4.5) H 12/30/16 03:58 Carbon Dioxide 31 mEq/L (19-29) H 12/30/16 03:58 Glucose 173 mg/dL (70-99) H 12/30/16 03:58 POC Glucose 192 (58-89) H 12/30/16 15:39 C-Reactive Protein 121 mg/L (Less than 5) H 12/27/16 01:20 Microbiology, Last 48 Hours 12/28/16 10:40 Blood Culture - Preliminary Peripheral Venipuncture No growth. 12/28/16 10:30 Blood Culture - Preliminary Peripheral Venipuncture No growth. 12/25/16 04:18 Anaerobic Culture - Final Left Foot No anaerobes were recovered. - VTE Documentation of Mechanical Device: Venous foot pump, device Consult Discharge Plan - Plan Referrals: Starla Rodriguez MD [Primary Care Provider] - 12/31/16 3:00 pm
--- NOTE | 2016-12-30 17:02 | Podiatry Progress Note ---
Date of Encounter: 12/29/16 Time of Encounter: 20:00 - Assessment and Plan (1) Diabetic infection of left foot Current Visit: No Status: Acute Continue IV antibiotics per infectious disease. Wound VAC changes every 2-3 days. Minimize weightbearing and dispense a surgical shoe. Follow-up in my clinic one week after discharge. Subjective Principal diagnosis: Left foot infection Interval history: Patient relates that he has been feeling much better. Patient relates that his pain is minimal. Patient states that his foot appears to be less swollen. Objective - Vital Signs Vital Signs: Vital Signs Temp Pulse Resp BP Pulse Ox 12/30/16 16:44 18 100 12/30/16 14:25 98.0 F 97 18 151/81 94 L 12/30/16 11:41 16 99 12/30/16 10:39 98.7 F 74 17 147/77 97 12/30/16 07:04 98.6 F 70 17 129/82 96 12/30/16 04:28 20 91 L 12/30/16 03:42 97.8 F 93 16 121/67 95 12/29/16 23:49 97.4 F L 92 18 123/71 93 L 12/29/16 23:17 18 92 L 12/29/16 18:46 97.9 F 98 18 152/65 93 L Intake and Output 12/30/16 12/30/16 12/30/16 07:59 15:59 23:59 Intake Total 700 / 700 1760 / 1760 Output Total 600 / 600 1025 / 1025 Balance 100 / 100 735 / 735 Intake: IV Fluids 500 / 500 Vancocin 1,750 MG In 500 / 500 Dextrose 5% 500 ML @ 333. 333 mls/hr IVPB Q12H [facility] Rx#:[id number] Oral 200 / 200 1760 / 1760 Output: Urine 600 / 600 1025 / 1025 Wound Drainage 0 / 0 Left Dorsal Foot 0 / 0 Left Foot 0 / 0 Left Plantar Foot 0 / 0 Other: Meal Lunch Percent of Meal Consumed 100% Weight 163.322 kg Blood Glucose* 146 192 Patient Weight 12/30/16 23:59 Weight 163.322 kg - Exam Exam: The wound VAC is intact to the right lower extremity and will be changed on Saturday. The patient is healing well without incident and no increased erythema is noted. Capillary fill time is intact to the digits. Decreased edema noted. Sensation of bilateral lower extremities diminished significantly consistent with peripheral neuropathy. Incision: Present: healing - Lab Result Diagrams: 12/29/16 04:56 12/30/16 03:58 Labs: Abnormal lab results RBC 3.97 M/mcL (4.19-5.50) L 12/29/16 04:56 Hgb 11.4 g/dL (12.9-16.9) L 12/29/16 04:56 Hct 36.5 % (37.5-50.1) L 12/29/16 04:56 MCHC 31.2 g/dL (31.6-35.5) L 12/29/16 04:56 Plt Count 435 K/mcL (140-400) H 12/29/16 04:56 ESR 88 mm/hr (0-10) H 12/27/16 01:20 ABG pCO2 63 mmHg (35-45) H 12/27/16 11:22 ABG pO2 80 mmHg (85-104) L 12/27/16 11:22 ABG HCO3 31.5 mEQ/L (21-27) H 12/27/16 11:22 ABG Total CO2 37.5 mEq/L (20-26) H 12/27/16 11:22 ABG Base Excess 8.4 mEq/L (-2.0 to 3.0) H 12/27/16 11:22 Potassium 4.9 mEq/L (3.5-4.5) H 12/30/16 03:58 Carbon Dioxide 31 mEq/L (19-29) H 12/30/16 03:58 Glucose 173 mg/dL (70-99) H 12/30/16 03:58 POC Glucose 192 (58-89) H 12/30/16 15:39 C-Reactive Protein 121 mg/L (Less than 5) H 12/27/16 01:20 Microbiology, Last 48 Hours 12/28/16 10:40 Blood Culture - Preliminary Peripheral Venipuncture No growth. 12/28/16 10:30 Blood Culture - Preliminary Peripheral Venipuncture No growth. 12/25/16 04:18 Anaerobic Culture - Final Left Foot No anaerobes were recovered. - VTE Documentation of Mechanical Device: Venous foot pump, device Consult Discharge Plan - Plan Referrals: Starla Rodriguez MD [Primary Care Provider] - 12/31/16 3:00 pm
[2016-12-30] MEDS ORDERED: Ondansetron 4 MG/2 ML VIAL IVP PRN (20:43)
[2016-12-30] MEDS: Acetaminophen 325 MG TABLET PO PRN (20:57)
[2016-12-31] MEDS: Ipratropium/Albuterol Neb 3 ML IH SCH ×3 (04:20→16:13)
[2016-12-31] MEDS: ceFAZolin 1,000 MG in D5% in Water (Mini-Bag+) 100 ML IVPB SCH (08:37)
[2016-12-31] MEDS: Nicotine 7 MG PATCH.TD24 TD SCH (08:42)
[2016-12-31] MEDS: Insulin DETEMIR 100 UNIT/ML X5UNITS SQ SCH (08:45)
[2016-12-31] MEDS: Lactulose Oral Soln 20 GM/30 ML UDC PO SCH (08:47)
[2016-12-31] MEDS: Insulin LISPRO 300 UNITS/3 ML VIAL SQ SCH ×4 (08:55→12:04)
[2016-12-31] MEDS: *HR* Heparin 5,000 UNIT/ML VIAL SQ SCH (08:58)
[2016-12-31 09:07] LABS: Basophils # 0.1 K/mcL (0.0-0.2); Basophils % 0.6 %; Eosinophils # 0.1 K/mcL (0.0-0.6); Eosinophils % 1.4 %; Hematocrit 41.5 % (37.5-50.1); Hemoglobin 12.9 g/dL (12.9-16.9); Immature Granulocytes % 2.3 % (0-4); Lymphocytes # 0.8 K/mcL (0.6-4.6); Mean Corpuscular HGB Conc 31.1 g/dL (31.6-35.5); Mean Corpuscular Hemoglobin 28.4 pg (28.0-33.3); Mean Corpuscular Volume 91.2 fL (83.0-100.0); Mean Platelet Volume 9.6 fL (9.4-12.4); Monocytes # 0.6 K/mcL (0.0-1.3); Monocytes % 5.8 %; Neutrophils # 8.1 K/mcL (1.6-8.9); Platelet Count 433 K/mcL (140-400); Red Blood Count 4.55 M/mcL (4.19-5.50); Segmented Neutrophils % 81.9 %
[2016-12-31 09:35] LABS: BUN/Creatinine Ratio 16 (6-26); Blood Urea Nitrogen 20 mg/dL (8-26); C-Reactive Protein 56 mg/L (Less than 5); Calcium 9.9 mg/dL (8.6-10.8); Carbon Dioxide 31 mEq/L (19-29); Chloride 98 mEq/L (98-109); Glucose 218 mg/dL (70-99); Magnesium 2.3 mg/dL (1.6-2.6); Osmolality,Calculated 297 (280-300); Phosphorous 5.7 mg/dL (2.3-4.7); Potassium 4.9 mEq/L (3.5-4.5); Sodium 139 mEq/L (136-145); eGFR For African Americans > 60 (> 60); eGFR For Non-African Americans > 60 (> 60)
[2016-12-31 10:40] VITALS: BP 114/78
[2016-12-31] MEDS: *HR* OxyCODONE Immed Rel 5 MG TABLET PO PRN (11:10)
--- NOTE | 2016-12-31 12:13 | Podiatry Progress Note ---
Date of Encounter: 12/31/16 Time of Encounter: 07:00 - Assessment and Plan (1) Severe sepsis Current Visit: Yes Status: Resolved (2) Venous stasis dermatitis Current Visit: Yes Status: Acute Qualifiers: Laterality: bilateral Qualified Code(s): I83.11 - Varicose veins of right lower extremity with inflammation; I83.12 - Varicose veins of left lower extremity with inflammation (3) Cellulitis of left foot Current Visit: No Status: Acute (4) Diabetic infection of left foot Current Visit: No Status: Acute 1. S/p irrigation and debridement of the left foot on 12/26/[address] Arguello. 2. Wound cultures isolated Staph Aureus. Started on Ancef and will continue after discharge from hospital. 3. Wound vac changes every M-- with small black simplace connected to 125 mmhg continuous suction. 4. Patient will need to remain protective weight bearing with a post op shoe. 5. Patient will need to f/u with Dr. Arguello with in one week of discharge from the hospital. Subjective Principal diagnosis: Left foot infection Interval history: Patient is s/p Irrigation and debridement of the left foot by Dr. Arguello on 12/26/16. Patient is lying in bed with wound vac intact to left foot. Dressing is dry and intact. Per nurse patient should be going to [facility] today. Patient is sleeping, arousable to verbal stimuli. No c/o pain. No fever overnight. Objective - Vital Signs Vital Signs: Vital Signs Temp Pulse Resp BP Pulse Ox 12/31/16 10:39 97.8 F 97 18 114/78 97 12/31/16 06:26 97.3 F L 94 18 118/72 93 L 12/31/16 04:40 97.4 F L 98 18 128/92 95 12/31/16 04:20 18 96 12/31/16 00:34 97.9 F 103 18 109/68 98 12/30/16 22:28 16 91 L 12/30/16 20:48 99.0 F 91 18 146/79 93 L 12/30/16 16:44 18 100 12/30/16 14:25 98.0 F 97 18 151/81 94 L Intake and Output 12/30/16 12/31/16 12/31/16 23:59 07:59 15:59 Intake Total 460 / 460 200 / 200 240 / 240 Output Total 725 / 725 400 / 400 675 / 675 Balance -265 / -265 -200 / -200 -435 / -435 Intake: IV Fluids 100 / 100 100 / 100 Ancef 1,000 MG In 100 / 100 100 / 100 Dextrose 5% (Minibag+) 100 ML 100 ML @ 200 mls/ hr IVPB Q8HR [facility] Rx#: [id number] Oral 360 / 360 100 / 100 240 / 240 Output: Urine 725 / 725 400 / 400 675 / 675 Wound Drainage 0 / 0 0 / 0 Left Dorsal Foot 0 / 0 0 / 0 Left Foot 0 / 0 0 / 0 Left Plantar Foot 0 / 0 0 / 0 Other: Meal Dinner Breakfast Percent of Meal Consumed 100% 100% Weight 163 kg Blood Glucose* 168 179 215 Patient Weight 12/31/16 23:59 Weight 163 kg - Exam Exam: General appearance: alert awake oriented X 3. Calm and pleasant, no acute distress.. Vascular: No evidence of cyanosis, pallor or rubor, Edema graded at 2+/4, Skin Temperature warm, No calf pain with manual compression. capillary refill time is immediate to digits. Postop Exam: S/P wound vac intact to left foot with black sponge connected to 125 mmhg continuous suction, serosanguineous drainage observed to wound vac chamber, No pus, no odor, light erythema to dorsum of toe #1 and #2 of the left foot. No streaking, no fluctuance. - Lab Result Diagrams: 12/31/16 08:56 12/31/16 08:56 Labs: Abnormal lab results MCHC 31.1 g/dL (31.6-35.5) L 12/31/16 08:56 Plt Count 433 K/mcL (140-400) H 12/31/16 08:56 ESR 111 mm/hr (0-10) H 12/31/16 08:56 ABG pCO2 63 mmHg (35-45) H 12/27/16 11:22 ABG pO2 80 mmHg (85-104) L 12/27/16 11:22 ABG HCO3 31.5 mEQ/L (21-27) H 12/27/16 11:22 ABG Total CO2 37.5 mEq/L (20-26) H 12/27/16 11:22 ABG Base Excess 8.4 mEq/L (-2.0 to 3.0) H 12/27/16 11:22 Potassium 4.9 mEq/L (3.5-4.5) H 12/31/16 08:56 Carbon Dioxide 31 mEq/L (19-29) H 12/31/16 08:56 Creatinine 1.26 mg/dL (0.72-1.25) H 12/31/16 08:56 Glucose 218 mg/dL (70-99) H 12/31/16 08:56 POC Glucose 215 (58-89) H 12/31/16 10:38 Phosphorus 5.7 mg/dL (2.3-4.7) H 12/31/16 08:56 C-Reactive Protein 56 mg/L (Less than 5) H 12/31/16 08:56 Microbiology, Last 48 Hours 12/28/16 10:40 Blood Culture - Preliminary Peripheral Venipuncture No growth. 12/28/16 10:30 Blood Culture - Preliminary Peripheral Venipuncture No growth. 12/25/16 04:18 Anaerobic Culture - Final Left Foot No anaerobes were recovered. - VTE Documentation of Mechanical Device: Venous foot pump, device Consult Discharge Plan - Plan Additional Instructions: Please follow up with Dr. Arguello within 5 days after discharge from the hospital. Please follow up with her primary care physician within one week after discharge from the hospital. Please continue IV antibiotics as prescribed Daily wound care as recommended by podiatry. Wound VAC arrangements have been made, and they will be changed 3 times a week at the rehabilitation facility. Closely monitor your fingerstick and blood glucose. Please obtain the prescribed lab work prior to your appointment with Dr. Arguello. Please resume your home medications as prescribed by your primary care physician. Referrals: Jorge Arguello DPM [Partnered Physician] - 01/04/17 2:30 pm Prescriptions: OxyCODONE Immed Rel [Roxicodone 5 MG] 5 mg PO Q6HR PRN #20 tablet PRN Reason: Moderate Pain (4-6) CeFAZolin [Ancef] 1,000 mg IVPB Q8HR #42
--- NOTE | 2016-12-31 12:29 | Discharge Summary ---
Date of Encounter: 12/31/16 Time of Encounter: 12:28 - Discharge Diagnosis (1) Necrotizing fasciitis Priority: Primary Status: Resolved (2) STEPHIE (obstructive sleep apnea) Priority: Secondary Status: Chronic (3) Severe sepsis Priority: Primary Status: Resolved (4) Type 2 diabetes mellitus Priority: Secondary Status: Chronic Qualifiers: Diabetes mellitus complication status: with skin complications Diabetes mellitus complication detail: with foot ulcer Diabetes mellitus joint terminal attack controller insulin use: with joint terminal attack controller use Qualified Code(s): E11.621 - Type 2 diabetes mellitus with foot ulcer; L97.509 - Non-pressure chronic ulcer of other part of unspecified foot with unspecified severity; 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 (5) DVT prophylaxis Priority: Secondary Status: Acute (6) Diabetic infection of left foot Priority: Primary Status: Acute (7) Morbid obesity with BMI of 50.0-59.9, adult Priority: Secondary Status: Chronic - Discharge Medications Prescriptions: OxyCODONE Immed Rel [Roxicodone 5 MG] 5 mg PO Q6HR PRN #20 tablet PRN Reason: Moderate Pain (4-6) CeFAZolin [Ancef] 1,000 mg IVPB Q8HR #42 Home Medications: Furosemide [Lasix] 80 mg PO DAILY 01/19/16 [History] GlipiZIDE [Glucotrol] 5 mg PO DAILY 01/19/16 [History] Insulin ASPART [NovoLOG] 0 unit SQ TIDWM 01/19/16 [History] Insulin Glargine [Lantus] 90 unit SQ BID 01/19/16 [History] Lisinopril-HCTZ 20-12.5 [Prinzide 20-12.5] 1 each PO DAILY 01/19/16 [History] Albuterol Neb [Proventil Neb] 2.5 mg IH [id number] PRN #0 inhsol 12/24/16 [Rx] Ammonium Lactate [Amlactin] 1 appl TP BID bottle 12/24/16 [Rx] Collagenase Oint [Santyl] 1 appl TP DAILY 12/24/16 [History] Enoxaparin [Lovenox] 40 mg SQ 0700 syringe 12/24/16 [Rx] Gentamicin Sulfate 1 appl TP TID 12/24/16 [History] HYDROcodone/Acet 5/325 mg [[place] 5-325 mg] 1 tab PO Q4HR PRN #0 tablet 12/24/16 [Rx] Nicotine Gum [Nicorette gum] 2 mg BC Q2HWA PRN #0 gum 12/24/16 [Rx] Nystatin POWDER [Nystop] 1 appl TP TID bottle 12/24/16 [Rx] Albuterol Sulfate [Albuterol Inhaler] 2 puff IH Q4HR PRN #0 inhaler 12/31/16 [Rx ] CeFAZolin [Ancef] 1,000 mg IVPB Q8HR #42 12/31/16 [Rx] Docusate [Colace] 100 mg PO BID capsule 12/31/16 [Rx] Heparin 5,000 unit SQ Q12HCO vial 12/31/16 [Rx] Ipratropium/Albuterol Neb [Duoneb] 3 ml IH QIDR PRN inhsol 12/31/16 [Rx] OxyCODONE Immed Rel [Roxicodone 5 MG] 5 mg PO Q6HR PRN #20 tablet 12/31/16 [Rx] Polyethylene Glycol 3350 [MiraLAX] 17 gm PO DAILY PRN #0 powd.pack 12/31/16 [Rx] Allergies/Adverse Reactions: Allergies codeine Adverse Reaction (Mild, Verified 12/21/16 22:33) Constipation Date of admission: 12/24/16 17:58 Primary care physician: Starla Rodriguez, Consults: 12/24/16 17:08 Consult to Podiatry [CONS] Routine Consulting Provider: Podiatry [facility] Reason for Consult: Dr. Arguello consulted for patient with LLE diabetic foot ulcer and cellulitis. Call Completed: Yes 12/25/16 14:46 Consult to Infectious Diseases [CONS] Routine Consulting Provider: Infectious Disease [facility] Reason for Consult: leg wound Time Notified: 14:45 Call Completed: Yes 12/25/16 14:51 Consult to Infectious Diseases [CONS] Routine Consulting Provider: Infectious Disease [place] Reason for Consult: Dr Arguello to contact ID. assisted (6 weeks) antibiotics likely Call Completed: No 12/25/16 16:50 Consult to Occupational Therapy [CONS] Routine Comment: Evaluate, develop and implement POC Consult to Physical Therapy [CONS] Routine Comment: Evaluate, develop and implement POC Consult to Manager Housekeeping [CONS] Routine Reason for SW Consult: may need placement, wound vac and joint terminal attack controller iv atb's 12/26/16 09:09 Consult to Invasive Line Access Team [CONS] Routine Reason for Consult: Picc Line Insertion Line Type: PICC PICC line indications: assisted Med/Antibiotic Time Notified: 09:11 12/27/16 10:37 Consult to Occupational Therapy [CONS] Stat Comment: Evaluate, develop and implement POC 12/31/16 09:48 Consult to Invasive Line Access Team [CONS] Routine Reason for Consult: home atb therapy Line Type: EPIV Discharging clinician: Mabel Ramos Anticipated date of discharge: 12/31/16 - Patient Status Disposition: Transfer SNF Condition: Fair Functional capacity at discharge: uses cane/walker Overall status at discharge: patient is progressing back to baseline - Discharge Instructions Follow Up With: Starla Rodriguez MD [Primary Care Provider] - 12/31/16 3:00 pm Additional Instructions: Please follow up with Dr. Arguello within 5 days after discharge from the hospital. Please follow up with her primary care physician within one week after discharge from the hospital. Please continue IV antibiotics as prescribed Daily wound care as recommended by podiatry. Wound VAC arrangements have been made, and they will be changed 3 times a week at the rehabilitation facility. Closely monitor your fingerstick and blood glucose. Please obtain the prescribed lab work prior to your appointment with Dr. Arguello. Please resume your home medications as prescribed by your primary care physician. - Diet and Activity Activity: as per physical therapy Diet: diabetic diet Hospital course: Mr. Roman is a 51 year old male with past medical history of poorly controlled diabetes, dyslipidemia, peripheral neuropathy, morbid obesity, hypertension, chronic venous stasis of bilateral lower extremity who was admitted for sepsis secondary to infected left lower extremity diabetic foot ulcer. In the ER patient was noted to have foot xray showing multiple locules of gas in the soft tissue for which he was treated operatively by Dr. Arguello. Infectious disease was consulted for concern of osteo-and prolonged antibiotic treatment. Patient's postop was uncomplicated, he continued to improve with daily wound care. Wound VAC was placed by podiatry. Patient's wound cultures are positive for Staphylococcus Aureus which is sensitive to cefazolin. Patient improved significantly with IV antibiotics and initially there was a discussion for continuation of IV antibiotics for 6 weeks, however given camacho sensitivity of the cultures and improvement in clinical response, patient is to continue IV antibiotics for 2 weeks at this time. Podiatry is to monitor patient's antibiotic dosage change after discharge and the need to continue IV antibiotics greater than 2 weeks will be determined by patient's brusher tender. Patient will be discharged to a short-term rehabilitation facility, social work has arranged for wound care with wound VAC. Patient is to follow-up with podiatry within 1 week after his discharge. He will be given instructions to get lab work done prior to his podiatry appointments. He is to follow up with primary care physician within one week after discharge from the hospital. ID services are not available as of today due to which podiatry will be managing the antibiotics after patient's discharge. - Time Spent with Patient Total time spent providing and/or coordinating discharge services: Greater than 30 minutes - Constitutional Vitals: Temp Pulse Resp BP Pulse Ox 97.8 F 97 18 114/78 97 12/31/16 10:39 12/31/16 10:39 12/31/16 10:39 12/31/16 10:39 12/31/16 10:39 General appearance: Present: cooperative, A&O X 3, morbidly obese, no acute distress, answers questions appropriately - Head Head exam: Present: atraumatic, normocephalic - Eye Eye exam: Present: normal appearance. Absent: conjuntiva pink, sclera anicteric - Respiratory Respiratory exam: Present: CTAB. Absent: respiratory distress, wheezes - Cardiovascular Cardiovascular exam: Present: RRR, +S1, +S2 - GI/Abdominal GI/Abdominal exam: Present: normal bowel sounds, soft. Absent: distended, tenderness - Extremities Exam Extremities exam: Present: pedal edema (LLE wrapped in dressing and wound vac in place), warm, radial pulses palpable and symetrical. Absent: calf tenderness - Neurological Exam Neurological exam: Present: alert, oriented X3 - Psychiatric Psychiatric exam: Present: normal affect, normal mood - VTE Documentation of Mechanical Device: Venous foot pump, device
--- NOTE | 2016-12-31 14:29 | Physician Discharge Referral ---
ExtendedCare Referral Info Transfer To: F Provider in Charge after Transfer: PCP - Diagnosis (1) Necrotizing fasciitis Priority: Primary Status: Resolved (2) STEPHIE (obstructive sleep apnea) Priority: Secondary Status: Chronic (3) Severe sepsis Priority: Primary Status: Resolved (4) Type 2 diabetes mellitus Priority: Secondary Status: Chronic (5) DVT prophylaxis Priority: Secondary Status: Acute (6) Diabetic infection of left foot Priority: Primary Status: Acute (7) Morbid obesity with BMI of 50.0-59.9, adult Priority: Secondary Status: Chronic - Transfer Medications Prescriptions: OxyCODONE Immed Rel [Roxicodone 5 MG] 5 mg PO Q6HR PRN #20 tablet PRN Reason: Moderate Pain (4-6) CeFAZolin [Ancef] 1,000 mg IVPB Q8HR #42 Home Medications: Furosemide [Lasix] 80 mg PO DAILY 01/19/16 [History] GlipiZIDE [Glucotrol] 5 mg PO DAILY 01/19/16 [History] Insulin ASPART [NovoLOG] 0 unit SQ TIDWM 01/19/16 [History] Insulin Glargine [Lantus] 90 unit SQ BID 01/19/16 [History] Lisinopril-HCTZ 20-12.5 [Prinzide 20-12.5] 1 each PO DAILY 01/19/16 [History] Albuterol Neb [Proventil Neb] 2.5 mg IH [id number] PRN #0 inhsol 12/24/16 [Rx] Ammonium Lactate [Amlactin] 1 appl TP BID bottle 12/24/16 [Rx] Collagenase Oint [Santyl] 1 appl TP DAILY 12/24/16 [History] Enoxaparin [Lovenox] 40 mg SQ 0700 syringe 12/24/16 [Rx] Gentamicin Sulfate 1 appl TP TID 12/24/16 [History] HYDROcodone/Acet 5/325 mg [[place] 5-325 mg] 1 tab PO Q4HR PRN #0 tablet 12/24/16 [Rx] Nicotine Gum [Nicorette gum] 2 mg BC Q2HWA PRN #0 gum 12/24/16 [Rx] Nystatin POWDER [Nystop] 1 appl TP TID bottle 12/24/16 [Rx] Albuterol Sulfate [Albuterol Inhaler] 2 puff IH Q4HR PRN #0 inhaler 12/31/16 [Rx ] CeFAZolin [Ancef] 1,000 mg IVPB Q8HR #42 12/31/16 [Rx] Docusate [Colace] 100 mg PO BID capsule 12/31/16 [Rx] Heparin 5,000 unit SQ Q12HCO vial 12/31/16 [Rx] Ipratropium/Albuterol Neb [Duoneb] 3 ml IH QIDR PRN inhsol 12/31/16 [Rx] OxyCODONE Immed Rel [Roxicodone 5 MG] 5 mg PO Q6HR PRN #20 tablet 12/31/16 [Rx] Polyethylene Glycol 3350 [MiraLAX] 17 gm PO DAILY PRN #0 powd.pack 12/31/16 [Rx] Allergies/Adverse Reactions: Allergies codeine Adverse Reaction (Mild, Verified 12/21/16 22:33) Constipation - Respiratory Orders Smoking Cessation: Smoking cessation has been advised. For more information, call the [employer] Quit Line at 9-151-PWMU-NOW. - Rehabiliation Orders Other: Please follow up with Dr. Arguello within 5 days after discharge from the hospital. Please follow up with her primary care physician within one week after discharge from the hospital. Please continue IV antibiotics as prescribed Daily wound care as recommended by podiatry. Wound VAC arrangements have been made, and they will be changed 3 times a week at the rehabilitation facility. Closely monitor your fingerstick and blood glucose. Please obtain the prescribed lab work prior to your appointment with Dr. Arguello. Lab work qweekly prior to your appointments with Dr. Arguello. Please resume your home medications as prescribed by your primary care physician. - Diet Orders Cardiac (Diabetic Diet) CERTIFICATION: I certify that the transfer of the above named patient to an Extended Care Facility is necessary for the continuing treatment of the diagnosis listed. The above information is true and accurate reflection of patient's current condition. Confidential - Redisclosure prohibited without a patient's written consent.
== END 2016-12-31 16:12 | DRG 720 ==
LOC: 3BNU → SUATTDRO 17:58 → 3ANU 12-27 00:16
PROVIDERS: ADMIT Nurse Practitioner Family; ATTEND Internal Medicine

== ENCOUNTER 2018-05-27 16:25 | Inpatient (IN) ==
--- NOTE | 2018-05-27 17:55 | Emergency Department Note ---
Disposition Clinical Impression: Foot ulcer Disposition: Admitted As Inpatient Condition: Fair General Adult HPI - General Chief complaint: ED Wound/Laceration Stated complaint: "possible gangrene sent by wound care" Time Seen by Provider: 05/27/18 17:47 - History of Present Illness Pain Scale: 3 - Related Data Home Medications Medication Instructions Recorded Confirmed Insulin Glargine [Lantus] 75 unit SQ BID 01/19/16 05/27/18 Aspirin Enteric Coated [Aspirin EC] 81 mg PO DAILY 05/01/17 05/27/18 Atorvastatin [Lipitor] 40 mg PO HS 08/21/17 05/27/18 Metformin HCl [Fortamet] 1,000 mg PO BID 08/21/17 05/27/18 Furosemide [Lasix] 80 mg PO BID 05/27/18 05/27/18 Insulin LISPRO [Humalog] 0 unit SQ TIDWM 05/27/18 05/27/18 Allergies Allergy/AdvReac Type Severity Reaction Status Date / Time codeine AdvReac Mild Constipatio Verified 05/27/18 16:47 n Past Medical History - Past Medical History Medical history: Reports: arthritis, asthma, diabetes, hyperlipidemia, hypertension, other Surgical history: Reports: cataract, orthopedic, other, vasectomy, other Psychiatric history: Reports: no psych history - Social History Smoking Status: Never smoker Smokeless Tobacco Status: Yes Alcohol use: Reports: none Drug use: Reports: none Course Vital Signs Temperature 98.8 F 05/27/18 16:46 Pulse Rate 106 05/27/18 16:46 Respiratory Rate 18 05/27/18 16:46 Blood Pressure 170/92 05/27/18 16:46 O2 Sat by Pulse Oximetry 95 05/27/18 16:46 Temperature 98.3 F 05/28/18 10:58 Pulse Rate 80 05/28/18 10:58 Respiratory Rate 16 05/28/18 10:58 Blood Pressure 153/52 05/28/18 10:58 O2 Sat by Pulse Oximetry 94 05/28/18 10:58 Oxygen Delivery Oxygen Delivery Room Air Medical Decision Making - Lab Data Result diagrams: 05/28/18 01:39 05/28/18 01:39 Lab Results 05/27/18 05/27/18 05/27/18 Range/Units 18:25 18:25 18:25 WBC 13.4 H (4.3-11.1) K/mcL RBC 4.29 (4.19-5.50) M/mcL Hgb 12.7 L (12.9-16.9) g/dL Hct 38.3 (37.5-50.1) % MCV 89.3 (83.0-100.0) fL MCH 29.6 (28.0-33.3) pg MCHC 33.2 (31.6-35.5) g/dL RDW 14.2 (11.5-14.5) % Plt Count 280 (140-400) K/mcL MPV 10.0 (9.4-12.4) fL Immature Gran % 0.6 (0-4) % Seg Neutrophils % 82.0 % Lymphocytes % 8.5 % Monocytes % 7.2 % Eosinophils % 1.4 % Basophils % 0.3 % Neutrophils # 11.0 H (1.6-8.9) K/mcL Lymphocytes # 1.1 (0.6-4.6) K/mcL Monocytes # 1.0 (0.0-1.3) K/mcL Eosinophils # 0.2 (0.0-0.6) K/mcL Basophils # 0.0 (0.0-0.2) K/mcL Sodium 134 L (136-145) mEq/L Potassium 4.3 (3.5-5.1) mEq/L Chloride 101 (98-107) mEq/L Carbon Dioxide 26 (23-29) mEq/L BUN 25 H (6-20) mg/dL Creatinine 1.00 (0.70-1.30) mg/dL Est GFR ( Amer) > 60 (> 60) Est GFR (Non-Af Amer) > 60 (> 60) BUN/Creatinine Ratio 25 (6-26) Glucose 165 H (70-105) mg/dL Calculated Osmolality 286 (280-300) Lactic Acid 1.3 (0.5-2.2) mmol/L Calcium 9.2 (8.6-10.3) mg/dL Attestation Statement - Attestation Attestation: I examined this patient and my medical decision-making was reviewed with the Resident Physician. I agree with the documented findings, disposition and treatment plan as described except to the extent set forth below. [id number] time provided Patient sent from the wound care clinic for an ulceration to the lateral aspect of his right foot. Quarter-sized ulcerative lesion identified. Patient with a known history of diabetes.
[2018-05-27] MEDS ORDERED: Isovue-370 500 ML INFUS..BTL IV ONE (18:04)
[2018-05-27] MEDS ORDERED: 0.9 % Sodium Chloride 1,000 ML IVC ONE (18:05)
--- NOTE | 2018-05-27 18:08 | Emergency Department Note ---
Disposition Clinical Impression: Foot ulcer Qualifiers: Laterality: right Non-pressure ulcer stage: unspecified non-pressure ulcer stage Qualified Code(s): L97.519 - Non-pressure chronic ulcer of other part of right foot with unspecified severity Disposition: Admitted As Inpatient Condition: Fair Referrals: Radha Chavez DO [Primary Care Provider] - Forms: ED Satisfaction Letter Time of Disposition: 18:39 Wound/Laceration HPI - General Chief Complaint: ED Wound/Laceration Stated Complaint: "possible gangrene sent by wound care" Time Seen by Provider: 05/27/18 17:47 Source: patient Limitations: no limitations Nursing Notes Reviewed: Yes Vital Signs Reviewed: Yes - History of Present Illness HPI Narrative: 53-year-old male presents from the wound care clinic for evaluation and management of a right foot ulcer. He is followed by Dr. Ramirez. Patient notes that his right foot was fine one week ago. Otherwise, he is not sure when this started. He does wear Velcro shoes prescribed by Dr. Ramirez which has a Velcro strap over the area of the ulcer is located. The area is painless to the patient however he does have sensation above and below the wound. PMH: Hypertension, hyperlipidemia, insulin-dependent diabetic, morbid obesity, remote history of cigarette smoking with no COPD. History of previous poorly healing foot ulcers. ROS: Positive: As above Negative: Fever, chills, nausea, vomiting, foot pain, ankle pain, inability to walk, nausea, vomiting - Related Data Home Medications Medication Instructions Recorded Confirmed Insulin Glargine [Lantus] 55 unit SQ BID 01/19/16 04/30/18 Aspirin Enteric Coated [Aspirin EC] 81 mg PO BID 05/01/17 04/30/18 Atorvastatin [Lipitor] 40 mg PO HS 08/21/17 04/30/18 Metformin HCl [Fortamet] 1,000 mg PO BID 08/21/17 04/30/18 Furosemide [Lasix] 80 mg PO BID 05/27/18 05/27/18 Insulin LISPRO [Humalog] 0 unit SQ TIDWM 05/27/18 05/27/18 Allergies Allergy/AdvReac Type Severity Reaction Status Date / Time codeine AdvReac Mild Constipatio Verified 05/27/18 16:47 n All systems ED: reviewed and negative except as stated. Review of Systems: As Per HPI Past Medical History - Past Medical History Medical history: Reports: arthritis, asthma, diabetes, hyperlipidemia, hypertension, other Surgical history: Reports: cataract, orthopedic, other, vasectomy, other Psychiatric history: Reports: no psych history - Social History Smoking Status: Never smoker Smokeless Tobacco Status: Yes Alcohol use: Reports: none Drug use: Reports: none Physical Exam Vital Signs Reviewed General: Patient is alert, oriented, and in no acute distress. Head: atraumatic, normocephalic Eye: normal appearance, no scleral icterus, no conjunctival injection ENT: mucous membranes moist, normal external ear exam Neck: normal inspection, trachea midline, full ROM Chest: normal inspection, symmetric chest rise Respiratory: Poor respiratory effort. Bilateral breath sounds are clear without wheezing, crackles, or rhonchi. Cardiovascular: Regular rate and rhythm. No clicks, rubs, gallops, or murmors. Normal heart sounds. Venous stasis changes in bilateral lower extremities. Abdomen: Over the obese. Bowel sounds present normoactive x-4 quadrants. Abdomen is soft, nondistended, and nontender. No guarding or rebound. No organomegaly noted. Musculoskeletal: Spontaneously moving all extremities. Skin: warm, dry, intact. Neuro: Alert and oriented x4. Sensation light touch absent overlying the right lateral foot ulcer however sensation to light touch is intact surrounding the ulcer and distal to the ulcer. Psych: Patient's affect is appropriate for situation. - General Limitations: no limitations General appearance: alert Course Course Narrative: Patient's wound is concerning; smells foul as an gram-negative bacteria. We will draw labs including lactate and blood cultures. We will begin empiric vancomycin and Zosyn. I discussed the patient with on-call podiatry, Dr. Ramirez, who is similar with the patient. He agrees to see the patient his consultation. I discussed the patient with the admitting hospitalist, Dr. Noe, who agrees to accept the patient with podiatry consultation. Vital Signs Temperature 98.8 F 05/27/18 16:46 Pulse Rate 106 05/27/18 16:46 Respiratory Rate 18 05/27/18 16:46 Blood Pressure 170/92 05/27/18 16:46 O2 Sat by Pulse Oximetry 95 05/27/18 16:46 Temperature 98.8 F 05/27/18 17:49 Pulse Rate 106 05/27/18 17:49 Respiratory Rate 18 05/27/18 17:49 Blood Pressure 170/92 05/27/18 17:49 O2 Sat by Pulse Oximetry 95 05/27/18 17:49 Oxygen Delivery Oxygen Delivery Room Air
[2018-05-27 18:36] LABS: Basophils % 0.3 %; Eosinophils # 0.2 K/mcL (0.0-0.6); Eosinophils % 1.4 %; Hematocrit 38.3 % (37.5-50.1); Hemoglobin 12.7 g/dL (12.9-16.9); Immature Granulocytes % 0.6 % (0-4); Lymphocytes # 1.1 K/mcL (0.6-4.6); Lymphocytes % 8.5 %; Mean Corpuscular HGB Conc 33.2 g/dL (31.6-35.5); Mean Corpuscular Hemoglobin 29.6 pg (28.0-33.3); Mean Corpuscular Volume 89.3 fL (83.0-100.0); Monocytes % 7.2 %; Platelet Count 280 K/mcL (140-400); Red Blood Count 4.29 M/mcL (4.19-5.50); Red Cell Distribution Width 14.2 % (11.5-14.5)
[2018-05-27 18:56] LABS: BUN/Creatinine Ratio 25 (6-26); Blood Urea Nitrogen 25 mg/dL (6-20); Calcium 9.2 mg/dL (8.6-10.3); Carbon Dioxide 26 mEq/L (23-29); Chloride 101 mEq/L (98-107); Glucose 165 mg/dL (70-105); Osmolality,Calculated 286 (280-300); Potassium 4.3 mEq/L (3.5-5.1); Sodium 134 mEq/L (136-145); eGFR For African Americans > 60 (> 60); eGFR For Non-African Americans > 60 (> 60)
--- NOTE | 2018-05-27 19:51 | Internal Med History&Physical ---
Date of Encounter: 05/27/18 Time of Encounter: 19:46 Internal Medicine - H&P: HPI Chief complaint: Right foot ulcer Admitted From: Home Plans for Post Hospital Care: Home History of present illness: Mr. Roman is a 53 year old male patient with history of insulin-dependent diabetes , morbid obesity, hypertension, hyperlipidemia, remote history of a smoking with no COPD presents ER sent from the wound care clinic by Dr. Gee for further management of a right foot ulcer. Patient is states that he has been following Dr. Gee for lower extremity swelling and has been wearing Unna boot but few days ago noticed a small ulcer but getting progressively worse with Christine small bowel therefore went to wound care clinic where he got advised to come to ER. his right foot was fine one week ago. He does wear Velcro shoes prescribed by Dr. Ramirez which has a Velcro strap over the area of the ulcer is located. In ER blood culture was drawn the antibiotic vancomycin and Zosyn were started. ER physician also to machine deicer element winder who agrees to see the patient on the floor. Review of system-patient denies fever chills nausea vomiting headache dizziness chest pain shortness of breath abdominal pain urinary or bowel complaint. Past Med Surg Social Fam HX - Past Medical History Medical history: arthritis, asthma, diabetes, hyperlipidemia, hypertension, other Additional medical history: MRSA, "FLESH EATING INFECTION" Psychiatric history: no psych history - Past Surgical History Surgical History: cataract, orthopedic, other, vasectomy, other Additional surgical history: b/l carpal tunnel surgery, I&D left foot - Social History Smoking Status: Never smoker Smokeless Tobacco Status: Yes Alcohol use: none Drug use: none - Family History Brother Living Status: Still Living Hx Family Endocrine Disorder: Yes (2 brothers with diabetes) Father Living Status: Still Living Hx Family Endocrine Disorder: Yes (DM) Mother Adopted: No Family Member Ethnicity: Non- Living Status: Hx Family Cardiac Disorders: (unknown) Hx Family Respiratory Disorders: No Hx Family Cancer: Yes Hx Family GI Disorders: No Hx Family Endocrine Disorder: Yes Hx Family Neuromuscular Disorders: No Hx Family Neurologic Disorders: No Hx Family HEENT Disorders: No Hx Family Autoimmune Disorders: No Internal Medicine - H&P: Meds Insulin Glargine [Lantus] 75 unit SQ BID 02/25/16 [History] Aspirin Enteric Coated [Aspirin EC] 81 mg PO DAILY 05/01/17 [History] Atorvastatin [Lipitor] 40 mg PO HS 08/21/17 [History] Metformin HCl [Fortamet] 1,000 mg PO BID 08/21/17 [History] Furosemide [Lasix] 80 mg PO BID 05/27/18 [History] Insulin LISPRO [Humalog] 0 unit SQ TIDWM 05/27/18 [History] 3 Allergy/AdvReac Type Severity Reaction Status Date / Time codeine AdvReac Mild Constipatio Verified 05/27/18 16:47 n All Systems PM: A 10-system review of systems was performed and is negative for pertinent findings except as documented above in the HPI. - Constitutional Vitals: Temp Pulse Resp BP Pulse Ox 98.8 F 95 16 146/72 95 05/27/18 17:49 05/27/18 18:45 05/27/18 18:45 05/27/18 18:45 05/27/18 18:45 Exam: General appearance: No acute distress, A&O X 3, morbidly obese Head exam: Atraumatic Eye exam: EOMI, PERRLA ENT exam: Moist oral mucosa Neck nontender, supple Respiratory exam: Clear to auscultation bilaterally Cardiovascular exam: Regular rate and rhythm, no systolic murmur Abdominal exam: Soft, nontender, nondistended, positive bowel sounds Extremities exam: +1/+2 bilateral pedal edema . Right lower extremity approximately 2 into 3 cm deep wound with serosanguineous discharge foul- smelling gangrene numbness over her right fifth metatarsal plantar site Neurological exam: CN II-XII intact, no focal deficits. No facial droop. Normal speech. Motor 5 x 5 in all 4 extremities. Internal Med - H&P Results - Labs CBC & Chem 7: 05/27/18 18:25 05/27/18 18:25 - Assessment and plan (1) Foot ulcer Current Visit: Yes Status: Acute Assessment and plan: Slightly diabetic foot ulcer with gangrenous changes. Will also perform Doppler venous ultrasound of right lower extremity to rule out underlying DVT. CT foot ordered in the ER but no report available. Blood culture collected in ER. Wound culture will be ordered. Started vancomycin and Zosyn. Consulted machine deicer element winder. Needs good control of blood glucose level. Qualifiers: Laterality: right Non-pressure ulcer stage: unspecified non-pressure ulcer stage Qualified Code(s): L97.519 - Non-pressure chronic ulcer of other part of right foot with unspecified severity (2) Type 2 diabetes mellitus Current Visit: No Status: Chronic Assessment and plan: Insulin-dependent. Hemoglobin A1c ordered. Continue long-acting home dose insulin with sliding scale coverage. Hypoglycemia protocol ordered. Accu-Chek every 6 hours. Diabetic diet. 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 Qualifiers: Hyperlipidemia type: mixed hyperlipidemia Qualified Code(s): E78.2 - Mixed hyperlipidemia (4) Hypertension Current Visit: No Status: Chronic Assessment and plan: Close monitoring. Continue home medicine. Hydralazine as needed Qualifiers: Hypertension type: essential hypertension Qualified Code(s): I10 - Essential (primary) hypertension (5) STEPHIE (obstructive sleep apnea) Current Visit: No Status: Chronic Assessment and plan: Continue home CPAP (6) DVT prophylaxis Current Visit: No Status: Acute Assessment and plan: SCDs, heparin - Time Spent With Patient Total time spent is greater than 50% in coordination of care (as documented) at patient's floor/unit and/or counseling patient: 25 - 35 minutes
[2018-05-27] MEDS ORDERED: Naloxone 0.4 MG/ML INJ IVP PRN (19:56)
[2018-05-27] MEDS ORDERED: Dextrose Gel 15 GM/37.5 ML TUBE PO PRN ×2 (20:03)
[2018-05-27] MEDS ORDERED: D5% in Water 1,000 ML IVC PRN (20:03)
[2018-05-27] MEDS ORDERED: *HR* Dextrose 50 % in Water (Syg) 50 ML SYRINGE IVP PRN (20:03)
[2018-05-27] MEDS: *HR* Heparin 5,000 UNIT/ML VIAL SQ SCH (22:31)
[2018-05-27] MEDS: Insulin DETEMIR 100 UNIT/ML X5UNITS SQ SCH (22:32)
[2018-05-28] MEDS ORDERED: Vancomycin (wt based) 1,000 MG VIAL IV SCH
[2018-05-28] MEDS: Piperacillin/Tazobactam 3.375 GM in 0.9 % Sodium Chloride Mini Bag 100 ML IVPB SCH ×3 (01:11→16:33)
[2018-05-28] MEDS: Insulin LISPRO 300 UNITS/3 ML VIAL SQ SCH ×4 (01:21→16:43)
[2018-05-28 02:06] LABS: Basophils % 0.3 %; Eosinophils # 0.2 K/mcL (0.0-0.6); Hematocrit 36.9 % (37.5-50.1); Hemoglobin 11.9 g/dL (12.9-16.9); Immature Granulocytes % 0.8 % (0-4); Lymphocytes # 0.7 K/mcL (0.6-4.6); Lymphocytes % 7.4 %; Mean Corpuscular HGB Conc 32.2 g/dL (31.6-35.5); Mean Corpuscular Hemoglobin 28.9 pg (28.0-33.3); Mean Corpuscular Volume 89.6 fL (83.0-100.0); Mean Platelet Volume 10.2 fL (9.4-12.4); Monocytes # 0.5 K/mcL (0.0-1.3); Monocytes % 5.9 %; Neutrophils # 7.4 K/mcL (1.6-8.9); Platelet Count 253 K/mcL (140-400); Red Blood Count 4.12 M/mcL (4.19-5.50); Red Cell Distribution Width 14.1 % (11.5-14.5); Segmented Neutrophils % 83.6 %
[2018-05-28 02:31] LABS: BUN/Creatinine Ratio 22 (6-26); Blood Urea Nitrogen 21 mg/dL (6-20); Calcium 8.8 mg/dL (8.6-10.3); Carbon Dioxide 28 mEq/L (23-29); Chloride 102 mEq/L (98-107); Glucose 163 mg/dL (70-105); Osmolality,Calculated 291 (280-300); Potassium 4.1 mEq/L (3.5-5.1); Sodium 137 mEq/L (136-145); eGFR For African Americans > 60 (> 60); eGFR For Non-African Americans > 60 (> 60)
[2018-05-28] MEDS: *HR* Heparin 5,000 UNIT/ML VIAL SQ SCH ×3 (04:00→19:29)
[2018-05-28 08:21] LABS: Estimated Average Glucose 171 mg/dl; Hemoglobin A1C 7.6 %
[2018-05-28] MEDS: Pantoprazole 40 MG VIAL IVP SCH (08:33)
[2018-05-28] MEDS: Aspirin Enteric Coated 81 MG Tablet PO SCH (08:34)
[2018-05-28] MEDS: Insulin DETEMIR 100 UNIT/ML X5UNITS SQ SCH ×2 (08:34→22:15)
--- NOTE | 2018-05-28 09:28 | Internal Med Progress Note ---
<LoredoBoyd S - Last Filed: 05/28/18 12:51> Date of Encounter: 05/28/18 Time of Encounter: 09:25 - Assessment and plan (1) Foot ulcer Current Visit: Yes Status: Acute Assessment and plan: Pt on zosyn and vancomycin. Pt to be seen by surgery for possible debridement of questionable osteomyelitis. May correlate CT of foot with MRI. Awaiting wound cultures Qualifiers: Laterality: right Non-pressure ulcer stage: unspecified non-pressure ulcer stage Qualified Code(s): L97.519 - Non-pressure chronic ulcer of other part of right foot with unspecified severity (2) Hypertension Current Visit: No Status: Chronic Assessment and plan: Pt takes lisinopril at home. BP today is 163/71. Will place pt on lisinopril here. Qualifiers: Hypertension type: essential hypertension Qualified Code(s): I10 - Essential (primary) hypertension (3) Hyperlipidemia Current Visit: No Status: Chronic Assessment and plan: Continue home medicine. Qualifiers: Hyperlipidemia type: mixed hyperlipidemia Qualified Code(s): E78.2 - Mixed hyperlipidemia (4) DVT prophylaxis Current Visit: No Status: Acute Assessment and plan: SQ heparin. (5) Type 2 diabetes mellitus Current Visit: No Status: Chronic Assessment and plan: Diabetic diet. Sliding scale and HbA1c ordered.. 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 Last ECHO was 2016 showed EF 65-70%. Fluid restrict 1.5Lday. IV Lasix 40mg BID. Strict I&O's Qualifiers: Heart failure type: diastolic Qualified Code(s): I50.32 - Chronic diastolic (congestive) heart failure - Time Spent With Patient Total time spent is greater than 50% in coordination of care (as documented) at patient's floor/unit and/or counseling patient: - Subjective Interval history: pt seen at bedside. he was admitted from wound care due to right foot ulcer. pt states that he in on some pain, about a 4/10 but can get up to a 10/10. He denies any fever, chills, night sweats. he denies chest pain, n/v/d. has some shortness of breath. He states surgeon wants to debride foot some for the infxn. ct foot showed possible osteomyelitis with cellulitis. severe irregular and erosive changes are seen at the 5th distal phalynx and along lateral aspect head of the 5th proximal phalnyx, there is soft tisse ulceration at the lateral 5th distal phalnx. there is diffuse sq edema and cellulitis on CT. there is no drainable fluid. - Constitutional Vitals: Temp Pulse Resp BP Pulse Ox 98.5 F 89 20 163/71 96 05/28/18 06:55 05/28/18 06:55 05/28/18 06:55 05/28/18 06:55 05/28/18 06:55 General appearance: Present: cooperative, morbidly obese, pleasant - Head Head exam: Present: normal inspection - Neck Neck exam general surgery: Present: normal inspection Additional comments: thick neck - Respiratory Respiratory exam: Present: decreased breath sounds Additional comments: decreased breath sounds secondary to body habitus - Cardiovascular Cardiovascular exam: Present: RRR, +S1, +S2 Additional comments: difficult to appreciate due to increased body habitus - GI/Abdominal GI/Abdominal exam: Present: normal bowel sounds, no peritoneal signs - Extremities Exam Extremities exam: Present: pedal edema, warm - Expanded Lower Extremities Exam Foot/Toe exam: Present: erythema, swelling - Neurological Exam Neurological exam: Present: no focal deficits - Skin Skin exam: Present: erythema Additional comments: pt has ulcer at base of the fifth distal phalnyx. there is draining fluid and necrotic tissue surrounding it. Internal Medicine: Result - Labs CBC & Chem 7: 05/28/18 01:39 05/28/18 01:39 Labs: Short CBC 05/28/18 Range/Units 01:39 WBC 8.8 (4.3-11.1) K/mcL Hgb 11.9 L (12.9-16.9) g/dL Hct 36.9 L (37.5-50.1) % Plt Count 253 (140-400) K/mcL Neutrophils # 7.4 (1.6-8.9) K/mcL BMP 05/28/18 01:39 Sodium 137 Potassium 4.1 Chloride 102 Carbon Dioxide 28 BUN 21 H Creatinine 0.96 Glucose 163 H Calcium 8.8 Consult Discharge Plan - Plan Referrals: Radha Chavez DO [Primary Care Provider] - <Manjinder Bland - Last Filed: 05/28/18 18:57> Date of Encounter: 05/28/18 - Assessment and plan (1) Hypertension Current Visit: No Status: Chronic Qualifiers: Hypertension type: essential hypertension Qualified Code(s): I10 - Essential (primary) hypertension (2) Hyperlipidemia Current Visit: No Status: Chronic Qualifiers: Hyperlipidemia type: mixed hyperlipidemia Qualified Code(s): E78.2 - Mixed hyperlipidemia (3) DVT prophylaxis Current Visit: No Status: Acute (4) Type 2 diabetes mellitus Current Visit: No Status: Chronic Qualifiers: Diabetes mellitus detention insulin use: with detention use Diabetes mellitus complication status: with skin complications Diabetes mellitus complication detail: with foot ulcer Qualified Code(s): E11.621 - Type 2 diabetes mellitus with foot ulcer; L97.509 - Non-pressure chronic ulcer of other part of unspecified foot with unspecified severity; 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 (5) STEPHIE (obstructive sleep apnea) Current Visit: No Status: Chronic (6) Foot ulcer Current Visit: Yes Status: Acute Qualifiers: Laterality: right Non-pressure ulcer stage: unspecified non-pressure ulcer stage Qualified Code(s): L97.519 - Non-pressure chronic ulcer of other part of right foot with unspecified severity (7) Congestive heart failure (CHF) Current Visit: Yes Status: Chronic Qualifiers: Heart failure type: diastolic Qualified Code(s): I50.32 - Chronic diastolic (congestive) heart failure - Time Spent With Patient Total time spent is greater than 50% in coordination of care (as documented) at patient's floor/unit and/or counseling patient: - Constitutional Vitals: Temp Pulse Resp BP Pulse Ox 98.4 F 88 18 152/87 96 05/28/18 15:11 05/28/18 15:11 05/28/18 15:11 05/28/18 15:11 05/28/18 15:11 Internal Medicine: Result - Labs CBC & Chem 7: 05/28/18 01:39 05/28/18 01:39 Labs: Short CBC 05/28/18 Range/Units 01:39 WBC 8.8 (4.3-11.1) K/mcL Hgb 11.9 L (12.9-16.9) g/dL Hct 36.9 L (37.5-50.1) % Plt Count 253 (140-400) K/mcL Neutrophils # 7.4 (1.6-8.9) K/mcL BMP 05/28/18 01:39 Sodium 137 Potassium 4.1 Chloride 102 Carbon Dioxide 28 BUN 21 H Creatinine 0.96 Glucose 163 H Calcium 8.8 - Attending Attestation I examined this patient and my medical decision-making was reviewed with the Resident Physician. I agree with the documented findings, disposition and treatment plan as described except to the extent set forth below.
[2018-05-28] MEDS ORDERED: Perflutren Lipid Microsphere 1.3 ML in 0.9 % Sodium Chloride 8.7 ML IVP ONE (12:49)
[2018-05-28 17:50] LABS: Acinetobacter baumannii by PCR Not Detected (Not Detect); Candida albicans by PCR Not Detected (Not Detect); Candida glabrata by PCR Not Detected (Not Detect); Candida krusei by PCR Not Detected (Not Detect); Candida parapsilosis by PCR Not Detected (Not Detect); Candida tropicalis by PCR Not Detected (Not Detect); Enterococcus by PCR Not Detected (Not Detect); Escherichia coli by PCR Not Detected (Not Detect); Klebsiella oxytoca by PCR Not Detected (Not Detect); Klebsiella pneumoniae by PCR Not Detected (Not Detect); Pseudomonas aeruginosa by PCR Not Detected (Not Detect); Serratia marcescens by PCR Not Detected (Not Detect); Staphylococcus aureus by PCR Not Detected (Not Detect); Streptococcus agalactiae(B)PCR Not Detected (Not Detect); Streptococcus by PCR Not Detected (Not Detect); Streptococcus pneumoniae PCR Not Detected (Not Detect); Streptococcus pyogenes (A) PCR Not Detected (Not Detect); blaKPC Carbapenem-Resist Gene Not Detected (Not Detect); mecA Methicillin-Resist Gene ***DETECTED*** (Not Detect); vanA/B Vancomycin-Resist Genes Not Detected (Not Detect)
[2018-05-29] MEDS: Insulin LISPRO 300 UNITS/3 ML VIAL SQ SCH ×5 (00:10→23:59)
[2018-05-29] MEDS: Piperacillin/Tazobactam 3.375 GM in 0.9 % Sodium Chloride Mini Bag 100 ML IVPB SCH ×4 (01:54→23:47)
[2018-05-29] MEDS: *HR* Heparin 5,000 UNIT/ML VIAL SQ SCH ×3 (04:55→20:27)
[2018-05-29] MEDS ORDERED: Ketorolac 15 MG/ML VIAL IVP ONE (06:09)
--- NOTE | 2018-05-29 09:01 | Internal Med Progress Note ---
<Boyd Loredo S - Last Filed: 05/29/18 12:35> Date of Encounter: 05/29/18 Time of Encounter: 08:59 - Assessment and plan (1) Foot ulcer Current Visit: Yes Status: Acute Assessment and plan: Right foot ulcer. Has necrosis over the side. Pt on zosyn and vancomycin day 3. MRSA positive. Vanc trough at 19. Pt to go to OR today for debridement vs amputation of toe for questionable osteomyelitis. May correlate CT of foot with MRI. Blood cx are positive for gram(+) cocci. Will monitor CBC for signs of infxn s/p sx. Consult to ID for osteomyelitis/MRSA. Qualifiers: Laterality: right Non-pressure ulcer stage: unspecified non-pressure ulcer stage Qualified Code(s): L97.519 - Non-pressure chronic ulcer of other part of right foot with unspecified severity (2) Hypertension Current Visit: No Status: Chronic Assessment and plan: Pt takes lisinopril at home. BP today is 106/62 Qualifiers: Hypertension type: essential hypertension Qualified Code(s): I10 - Essential (primary) hypertension (3) Hyperlipidemia Current Visit: No Status: Chronic Assessment and plan: Continue home medicine. Qualifiers: Hyperlipidemia type: mixed hyperlipidemia Qualified Code(s): E78.2 - Mixed hyperlipidemia (4) DVT prophylaxis Current Visit: No Status: Acute Assessment and plan: SQ heparin. (5) Type 2 diabetes mellitus Current Visit: No Status: Chronic Assessment and plan: Diabetic diet. Sliding scale and HbA1c ordered HbA1c has improved since last year. Down to 7.6 from 10.2. Qualifiers: Diabetes mellitus mcfp insulin use: with intermediate accountant use Diabetes mellitus complication status: with skin complications Diabetes mellitus complication detail: with foot ulcer Qualified Code(s): E11.621 - Type 2 diabetes mellitus with foot ulcer; L97.509 - Non-pressure chronic ulcer of other part of unspecified foot with unspecified severity; Z79.4 - senior living ( current) use of insulin (6) STEPHIE (obstructive sleep apnea) Current Visit: No Status: Chronic Assessment and plan: Pt on CPAP (7) Congestive heart failure (CHF) Current Visit: Yes Status: Chronic Assessment and plan: Diastolic CHF. ECHO showed 55-60% EF. Aortic sclerosis. Atypical septal motion consistent with BBB. Last ECHO was 2016 showed EF 65-70%. Fluid restrict 1.5Lday. IV Lasix 40mg BID. Strict I&O's. Cardiac low fat low salt diet. Qualifiers: Heart failure type: diastolic Qualified Code(s): I50.30 - Unspecified diastolic (congestive) heart failure - Time Spent With Patient Total time spent is greater than 50% in coordination of care (as documented) at patient's floor/unit and/or counseling patient: less than 15 minutes - Subjective Interval history: pt seen at bedside. he was admitted from wound care due to right foot ulcer. pt states that he in on some pain, about a 4/10 but can get up to a 10/10. He denies any fever, chills, night sweats. he denies chest pain, n/v/d. denies shortness of breath. He states surgeon wants to debride foot today for the infxn , may have to remove entire toe as per surgery. ct foot showed possible osteomyelitis with cellulitis. severe irregular and erosive changes are seen at the 5th distal phalynx and along lateral aspect head of the 5th proximal phalnyx , there is soft tisse ulceration at the lateral 5th distal phalnx. there is diffuse sq edema and cellulitis on CT. there is no drainable fluid. - Constitutional Vitals: Temp Pulse Resp BP Pulse Ox 98.8 F 84 17 106/62 94 05/29/18 06:48 05/29/18 06:48 05/29/18 06:48 05/29/18 06:48 05/29/18 06:48 General appearance: Present: cooperative, A&O X 3, morbidly obese, pleasant - Head Head exam: Present: atraumatic, normal inspection - Neck Neck exam general surgery: Present: normal inspection, supple - Respiratory Respiratory exam: Present: decreased breath sounds, CTAB Additional comments: decreasedbreath sounds secondary to body habitus - Cardiovascular Cardiovascular exam: Present: RRR, +S1, +S2. Absent: JVD - GI/Abdominal GI/Abdominal exam: Present: normal bowel sounds, no peritoneal signs - Extremities Exam Extremities exam: Absent: normal inspection Additional comments: pt has necrotic black material on lateral aspect of the right foot. bilateral legs have venous stasis changes - Skin Skin exam: Present: intact Internal Medicine: Result - Labs CBC & Chem 7: 05/29/18 09:34 05/29/18 09:34 - Impressions Impressions Echocardiogram 05/28/18 10:03 Impressions: LVEF 55-60%. Atypical septal motion consistent with bundle branch block. Indeterminate diastolic function. Aortic sclerosis. Unable to estimate RVSP due to lack of TR jet. Estimated RA pressure is 10-15 mmHg. Left Ventricular Wall Motion: Rest Echo Findings All wall segments showed normal motion. Findings: Study Quality * Technically adequate exam. Right Ventricle * Normal right ventricular structure and function. Left Atrium * Normal left atrial size. Mitral Valve * Normal mitral valve structure and function. Aorta * Normally sized aortic root. Pericardium * The pericardium appears normal. ECG Findings * Sinus rhythm with BBB. Left Ventricle * LVEF 55-60%. * Atypical septal motion consistent with bundle branch block. * Indeterminate diastolic function. Pulmonic Valve * No pulmonic regurgitation. * No pulmonic stenosis. * Pulmonic valve is not well visualized. Aortic Valve * No aortic regurgitation. * Aortic sclerosis. * Aortic valve not well visualized. Right Atrium * Right atrium is not well visualized. Interatrial Septum * Interatrial septum not well evaluated. IVC * The IVC is dilated. * < 50% respiratory change. Tricuspid Valve * Unable to estimate RVSP due to lack of TR jet. * No tricuspid stenosis. * No tricuspid regurgitation. * Estimated RA pressure is 10-15 mmHg. Consult Discharge Plan - Plan Referrals: Radha Chavez DO [Primary Care Provider] - <Manjinder Bland - Last Filed: 05/29/18 18:26> Date of Encounter: 05/29/18 - Assessment and plan (1) Hypertension Current Visit: No Status: Chronic Qualifiers: Hypertension type: essential hypertension Qualified Code(s): I10 - Essential (primary) hypertension (2) Hyperlipidemia Current Visit: No Status: Chronic Qualifiers: Hyperlipidemia type: mixed hyperlipidemia Qualified Code(s): E78.2 - Mixed hyperlipidemia (3) DVT prophylaxis Current Visit: No Status: Acute (4) Type 2 diabetes mellitus Current Visit: No Status: Chronic Qualifiers: Diabetes mellitus mcfp insulin use: with mcfp use Diabetes mellitus complication status: with skin complications Diabetes mellitus complication detail: with foot ulcer Qualified Code(s): E11.621 - Type 2 diabetes mellitus with foot ulcer; L97.509 - Non-pressure chronic ulcer of other part of unspecified foot with unspecified severity; Z79.4 - senior living ( current) use of insulin (5) STEPHIE (obstructive sleep apnea) Current Visit: No Status: Chronic (6) Foot ulcer Current Visit: Yes Status: Acute (7) Congestive heart failure (CHF) Current Visit: Yes Status: Chronic Qualifiers: Heart failure type: diastolic Qualified Code(s): I50.30 - Unspecified diastolic (congestive) heart failure - Time Spent With Patient Total time spent is greater than 50% in coordination of care (as documented) at patient's floor/unit and/or counseling patient: - Constitutional Vitals: Temp Pulse Resp BP Pulse Ox 97.8 F 82 16 132/74 98 05/29/18 17:10 05/29/18 17:10 05/29/18 17:10 05/29/18 17:10 05/29/18 17:10 Internal Medicine: Result - Labs CBC & Chem 7: 05/29/18 09:34 05/29/18 09:34 Labs: Short CBC 05/29/18 Range/Units 09:34 WBC 6.3 (4.3-11.1) K/mcL Hgb 11.7 L (12.9-16.9) g/dL Hct 36.2 L (37.5-50.1) % Plt Count 250 (140-400) K/mcL Neutrophils # 5.0 (1.6-8.9) K/mcL BMP 05/29/18 09:34 Sodium 136 Potassium 4.6 Chloride 104 Carbon Dioxide 28 BUN 15 Creatinine 0.98 Glucose 138 H Calcium 8.8 - Impressions Impressions Echocardiogram 05/28/18 10:03 Impressions: LVEF 55-60%. Atypical septal motion consistent with bundle branch block. Indeterminate diastolic function. Aortic sclerosis. Unable to estimate RVSP due to lack of TR jet. Estimated RA pressure is 10-15 mmHg. Left Ventricular Wall Motion: Rest Echo Findings All wall segments showed normal motion. Findings: Study Quality * Technically adequate exam. Right Ventricle * Normal right ventricular structure and function. Left Atrium * Normal left atrial size. Mitral Valve * Normal mitral valve structure and function. Aorta * Normally sized aortic root. Pericardium * The pericardium appears normal. ECG Findings * Sinus rhythm with BBB. Left Ventricle * LVEF 55-60%. * Atypical septal motion consistent with bundle branch block. * Indeterminate diastolic function. Pulmonic Valve * No pulmonic regurgitation. * No pulmonic stenosis. * Pulmonic valve is not well visualized. Aortic Valve * No aortic regurgitation. * Aortic sclerosis. * Aortic valve not well visualized. Right Atrium * Right atrium is not well visualized. Interatrial Septum * Interatrial septum not well evaluated. IVC * The IVC is dilated. * < 50% respiratory change. Tricuspid Valve * Unable to estimate RVSP due to lack of TR jet. * No tricuspid stenosis. * No tricuspid regurgitation. * Estimated RA pressure is 10-15 mmHg. - Attending Attestation I examined this patient and my medical decision-making was reviewed with the Resident Physician. I agree with the documented findings, disposition and treatment plan as described except to the extent set forth below.
[2018-05-29] MEDS ORDERED: Furosemide 40 MG/4 ML VIAL IVP SCH (09:15)
--- NOTE | 2018-05-29 09:30 | Podiatry Consult Note ---
Date of Encounter: 05/29/18 Time of Encounter: 07:00 Assessment and Plan (1) Foot ulcer Current visit: Yes Status: Acute Assessment: #1 patient with diabetic foot ulcer as well as erosion and ulceration of fifth toe right foot #2 comorbidities as outlined above including diabetes with neuropathy and vasculopathy Plan: #1 would recommend formal debridement of all necrotic tissue and bone as necessary deep cultures appropriate wound care including likely wound VAC application #2 discussed risks versus the benefits as well as alternatives to surgical debridement of the wound. Risks include but are not limited to infection bleeding pain need for further surgery, loss of toe her toes foot leg or life. DVT or blood clots. Failure procedure to produce desired results. Patient had all his questions answered to his satisfaction. We will proceed expectantly. Qualifiers: Laterality: right Non-pressure ulcer stage: unspecified non-pressure ulcer stage Qualified Code(s): L97.519 - Non-pressure chronic ulcer of other part of right foot with unspecified severity History of Present Illness Chief complaint: Foot ulcer with abscess and infection right side HPI: Mr. Roman is a 53 year old male, is known to me from wound care clinic where we treated successfully multiple ulcerations of his left foot and secondary to diabetes and infections. Successfully. She also has been treated for venous insufficiency and venous ulcers of both legs. He recently developed an ulceration on the lateral aspect of his right foot. He is receiving ongoing management of this wound care clinic without difficulty when sudden regression caused significant infection and necrosis of the lateral aspect of the fifth MTPJ right foot. He was seen in wound care clinic this past Saturday was sent to ED and was admitted from there. Podiatry consult to for further management. Past Med Surg Social Fam HX - Past Medical History Medical history: arthritis, asthma, diabetes, hyperlipidemia, hypertension, other Additional medical history: MRSA, "FLESH EATING INFECTION" Psychiatric history: no psych history - Past Surgical History Surgical History: cataract, orthopedic, other, vasectomy, other Additional surgical history: b/l carpal tunnel surgery, I&D left foot - Social History Smoking Status: Never smoker Smokeless Tobacco Status: Yes Alcohol use: none Drug use: none - Family History Brother Living Status: Still Living Hx Family Endocrine Disorder: Yes Father Living Status: Still Living Hx Family Endocrine Disorder: Yes (DM) Mother Adopted: No Family Member Ethnicity: Non- Living Status: Hx Family Cardiac Disorders: (unknown) Hx Family Respiratory Disorders: No Hx Family Cancer: Yes Hx Family GI Disorders: No Hx Family Endocrine Disorder: Yes Hx Family Neuromuscular Disorders: No Hx Family Neurologic Disorders: No Hx Family HEENT Disorders: No Hx Family Autoimmune Disorders: No Medications and Allergies Insulin Glargine [Lantus] 75 unit SQ BID 01/19/16 [History] Aspirin Enteric Coated [Aspirin EC] 81 mg PO DAILY 05/01/17 [History] Atorvastatin [Lipitor] 40 mg PO HS 08/21/17 [History] Metformin HCl [Fortamet] 1,000 mg PO BID 08/21/17 [History] Furosemide [Lasix] 80 mg PO BID 05/27/18 [History] Insulin LISPRO [Humalog] 0 unit SQ TIDWM 05/27/18 [History] 3 Allergy/AdvReac Type Severity Reaction Status Date / Time codeine AdvReac Mild Constipatio Verified 05/27/18 16:47 n All Systems Reviewed: The remainder of the systems were reviewed and are negative. Patient states he has had no recent chest pain nausea vomiting fever or chills the last 24 hours. Patient states he has had malaise and fatigue Physical Exam - Constitutional Vitals: Temp Pulse Resp BP Pulse Ox 98.8 F 84 17 106/62 94 05/29/18 06:48 05/29/18 06:48 05/29/18 06:48 05/29/18 06:48 05/29/18 06:48 General appearance: morbidly obese - Head Head exam: Present: atraumatic - Extremities Exam Extremities exam: Present: pedal edema - Expanded Lower Extremities Exam Lower Leg exam: Present: swelling (Patient is obvious trophic changes and stasis dermatitis associated with chronic venous insufficiency of both legs.) Foot/Toe exam: Present: swelling (Exhibits an obvious ulceration lateral aspect of fifth MTPJ with necrosis fibrinous tissue throughout the wound as well as the fifth toe. Probing to bone test presently is negative. Localized cellulitis.) Neuro vascular tendon exam: Present: sensory deficit - Ankle & Foot Appearance ankle: swelling Results - Labs Result Diagrams: 05/28/18 01:39 05/28/18 01:39 Labs: Abnormal lab results RBC 4.12 M/mcL (4.19-5.50) L 05/28/18 01:39 Hgb 11.9 g/dL (12.9-16.9) L 05/28/18 01:39 Hct 36.9 % (37.5-50.1) L 05/28/18 01:39 BUN 21 mg/dL (6-20) H 05/28/18 01:39 Glucose 163 mg/dL (70-105) H 05/28/18 01:39 POC Glucose 151 mg/dL (70-99) H 05/29/18 05:56 Hemoglobin A1c 7.6 % (-5.6) H 05/28/18 01:39 Vancomycin Trough 19 mcg/mL (5-10) H 05/29/18 06:38 Staphylococcus sp PCR DETECTED (Not Detect) A 05/27/18 18:25 mecA-Methicil Res Gene DETECTED (Not Detect) A 05/27/18 18:25 All other labs normal. Consult Discharge Plan - Plan Referrals: Radha Chavez DO [Primary Care Provider] -
[2018-05-29] MEDS: Aspirin Enteric Coated 81 MG Tablet PO SCH (09:48)
[2018-05-29] MEDS: Pantoprazole 40 MG VIAL IVP SCH (09:50)
[2018-05-29 10:01] LABS: Basophils % 0.5 %; Eosinophils # 0.3 K/mcL (0.0-0.6); Eosinophils % 4.1 %; Hematocrit 36.2 % (37.5-50.1); Hemoglobin 11.7 g/dL (12.9-16.9); Immature Granulocytes % 1.1 % (0-4); Lymphocytes # 0.5 K/mcL (0.6-4.6); Lymphocytes % 7.8 %; Mean Corpuscular HGB Conc 32.3 g/dL (31.6-35.5); Mean Corpuscular Volume 89.6 fL (83.0-100.0); Mean Platelet Volume 10.2 fL (9.4-12.4); Monocytes # 0.4 K/mcL (0.0-1.3); Platelet Count 250 K/mcL (140-400); Red Blood Count 4.04 M/mcL (4.19-5.50); Segmented Neutrophils % 79.5 %
[2018-05-29 10:15] LABS: Blood Urea Nitrogen 15 mg/dL (6-20); Calcium 8.8 mg/dL (8.6-10.3); Carbon Dioxide 28 mEq/L (23-29); Chloride 104 mEq/L (98-107); Glucose 138 mg/dL (70-105); Osmolality,Calculated 285 (280-300); Potassium 4.6 mEq/L (3.5-5.1); Sodium 136 mEq/L (136-145)
[2018-05-29] MEDS: Insulin DETEMIR 100 UNIT/ML X5UNITS SQ SCH ×2 (10:31→20:38)
[2018-05-29 11:48] LABS: BUN/Creatinine Ratio 15 (6-26); eGFR For African Americans > 60 (> 60); eGFR For Non-African Americans > 60 (> 60)
--- NOTE | 2018-05-29 13:26 | Infectious Disease Consult ---
Date of Encounter: 05/29/18 Time of Encounter: 13:22 Assessment and Plan (1) Sepsis Status: Acute Assessment and plan: The patient had two SIRs criteria on admission. Likely secondary to osteomyelitis of the right foot. Improved. WBC normalized. Tachycardia has resolved. Blood cultures drawn 05/27/18 are positive 1/2 sets for Staph species, but not Staph aureus. Qualifiers: Sepsis type: sepsis due to unspecified organism Qualified Code(s): A41.9 - Sepsis, unspecified organism (2) Bacteremia Status: Acute Assessment and plan: Causative organism unclear, but likely CONS. Blood cultures drawn 05/27/18 are positive 1/2 sets for Staph species per PCR, but not Staph aureus. Likely a contaminant. Repeat blood cultures x 2 sets. Okay to discontinue contact precautions. (3) Osteomyelitis Status: Suspected Assessment and plan: Causative organism unclear. Location: Right distal and proximal 5th phalanx. Likely secondary to DFU. CT of the right foot showed findings suspicious for OM of the 5th distal and proximal phalanx and cellulitis. Podiatry consulted and following. Planning to take the patient to the OR later today. Antibiotics started per the primary team although the patient clinically does not appear toxic. Check ESR and CRP. Await intra-op findings and cultures. Wound care and activity restrictions per the Podiatry team. Continue Vancomycin IV. Pharmacy to dose. Goal trough ~15. Continue Zosyn 3.375 grams IV Q8H. Duration of treatment depends on the clinical picture. Monitor renal function and for drug toxicity and dose-adjust antibiotics. Qualifiers: Osteomyelitis type: acute hematogenous Osteomyelitis location: foot Laterality: right Qualified Code(s): M86.071 - Acute hematogenous osteomyelitis, right ankle and foot (4) Foot ulcer Status: Acute Assessment and plan: Location: Right lateral foot. Secondary to poorly fitted shoes and LE edema. Wound care per the podiatry team. Qualifiers: Laterality: right Non-pressure ulcer stage: unspecified non-pressure ulcer stage Qualified Code(s): L97.519 - Non-pressure chronic ulcer of other part of right foot with unspecified severity (5) Venous stasis dermatitis Status: Acute Assessment and plan: Recommendations per the Podiatry team and wound care team. Qualifiers: Laterality: bilateral Qualified Code(s): I87.2 - Venous insufficiency ( chronic) (peripheral) (6) STEPHIE (obstructive sleep apnea) Status: Chronic (7) Congestive heart failure (CHF) Status: Chronic Qualifiers: Heart failure type: unspecified Heart failure chronicity: unspecified Qualified Code(s): I50.9 - Heart failure, unspecified (8) Morbid obesity with BMI of 50.0-59.9, adult Status: Chronic (9) Hypertension Status: Chronic Qualifiers: Hypertension type: essential hypertension Qualified Code(s): I10 - Essential (primary) hypertension (10) Hyperlipidemia Status: Chronic Qualifiers: Hyperlipidemia type: mixed hyperlipidemia Qualified Code(s): E78.2 - Mixed hyperlipidemia (11) Type 2 diabetes mellitus Status: Chronic Assessment and plan: Uncontrolled. HgbA1C 7.6% Recommend aggressive glucose monitoring and control to promote wound healing and prevent re-infection. Management per the primary team. Qualifiers: Diabetes mellitus correction insulin use: with manager terminal use Diabetes mellitus complication status: with skin complications Diabetes mellitus complication detail: with foot ulcer Qualified Code(s): E11.621 - Type 2 diabetes mellitus with foot ulcer; L97.509 - Non-pressure chronic ulcer of other part of unspecified foot with unspecified severity; Z79.4 - [facility]FP ( current) use of insulin Infectious Disease HPI - Data of Consult Patient: new to practice Consult date: 05/29/18 Requesting Physician: Benita Noe Primary Care Provider: Radha Chavez DO - Consult Narrative Reason for consult: Right foot infection History of present illness: Mr. Roman is a 53 year old male with a past medical history of diabetes, hyperlipidemia, hypertension, morbid obesity, and osteomyelitis of the left foot back in 2013. The patient was admitted to the hospital May 27 for right foot infection. We are consulted May 29 for bacteremia and osteo-myelitis of the right foot. Briefly, the patient is a 53-year-old male with past medical history as stated above. The patient states that he has chronic swelling to the bilateral lower extremities for which he sees Dr. Graham on the wound clinic. He states that his legs become so swollen that his shoe rubbed and he developed an ulcer to the lateral aspect of the right foot. He states he has had a chronic ulcer to the lateral aspect of the right foot for several weeks. He states that he had been having Unna boots placed weekly. He went last Saturday and the wound looked okay. He went back this Saturday to have them replaced and the wound was noted to be necrotic and foul-smelling and his foot was very erythematous so he was advised to come to the ER. Upon arrival, the patient was tachycardic and had leukocytosis with neutrophilic predominance. A CT of the right foot showed osteomyelitis of the fifth distal phalanx and proximal phalanx and cellulitis. He had a right lower extremity Doppler study that was negative for DVT. Blood cultures were obtained 2 sets and her +1 out of 2 for staph species. He was started empirically on IV vancomycin and IV Zosyn and admitted to the hospital for further evaluation. Since admission, the patient's white blood cell count has normalized. He has remained afebrile and his tachycardia has resolved. 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 We have been asked to evaluate and make further recommendations. During my exam today, the patient endorsed a history as stated above. He denies any fevers or chills or rigors. He denies any headache or neck pain. He denies any congestion, earache, or sore throat. He denies any chest pain, shortness of breath, or cough. He denies any nausea or vomiting or diarrhea. He denies abdominal pain, urinary complaints, or appetite changes. He states his blood sugars have remained below 200. He denies any increased pain in the right foot, but states she does have severe diabetic neuropathy and does not have much feeling. He states with atypical boot off this week there was a foul smell in his foot was very red and swollen. He denies oral thrush or any other skin lesions. The patient lives at home alone. He does have a cat, but denies any exposure between a cat in the affected area. He states he chews about a half a can of tobacco per day. He denies any alcohol or illicit drug use. 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 He denies any recent travel outside the [facility]. CC: Benita Noe Past Med Surg Social Fam HX - Past Medical History Attestation: Yes The following information was validated with the patient. Source: patient, old records reviewed, nursing notes reviewed Medical history: arthritis, asthma, diabetes, hyperlipidemia, hypertension, other Additional medical history: MRSA Psychiatric history: no psych history - Past Surgical History Surgical History: cataract, orthopedic, other, vasectomy, other Additional surgical history: b/l carpal tunnel surgery, I&D left foot - Social History Smoking Status: Never smoker Smokeless Tobacco Status: Yes Alcohol use: none Drug use: none Occupational status: retired Current living situation: Home - Independent Activity Level: Independent ambulation Recent Out of Country Travel Within the Last 8 Weeks: No Exposure or Possible Exposure to Illness During Travel: No - Family History Brother Living Status: Still Living Hx Family Endocrine Disorder: Yes Father Living Status: Still Living Hx Family Endocrine Disorder: Yes (DM) Mother Adopted: No Family Member Ethnicity: Non- Living Status: Hx Family Cardiac Disorders: (unknown) Hx Family Respiratory Disorders: No Hx Family Cancer: Yes Hx Family GI Disorders: No Hx Family Endocrine Disorder: Yes Hx Family Neuromuscular Disorders: No Hx Family Neurologic Disorders: No Hx Family HEENT Disorders: No Hx Family Autoimmune Disorders: No Infectious Disease-CN:Meds Insulin Glargine [Lantus] 75 unit SQ BID 01/19/16 [History] Aspirin Enteric Coated [Aspirin EC] 81 mg PO DAILY 05/01/17 [History] Atorvastatin [Lipitor] 40 mg PO HS 08/21/17 [History] Metformin HCl [Fortamet] 1,000 mg PO BID 08/21/17 [History] Furosemide [Lasix] 80 mg PO BID 05/27/18 [History] Insulin LISPRO [Humalog] 0 unit SQ TIDWM 05/27/18 [History] 3 Allergy/AdvReac Type Severity Reaction Status Date / Time codeine AdvReac Mild Constipatio Verified 05/27/18 16:47 n All systems: reviewed and no additional remarkable complaints except as stated Exam - Constitutional Vitals: Temp Pulse Resp BP Pulse Ox 99.5 F 83 18 128/68 95 05/29/18 11:03 05/29/18 11:03 05/29/18 11:03 05/29/18 11:03 05/29/18 11:03 General appearance: cooperative, morbidly obese, no acute distress - Head Head exam: Present: atraumatic, normal inspection, normocephalic - Eye Eye exam: Present: EOMI, normal appearance, PERRL Pupils: Present: normal accommodation - ENT ENT exam: Present: mucous membranes moist - Neck Neck exam: Present: normal inspection - Respiratory Respiratory exam: Present: CTAB. Absent: rales, respiratory distress, rhonchi, wheezes - Cardiovascular Cardiovascular exam: Present: RRR, +S1, +S2 - GI/Abdominal GI/Abdominal exam: Present: distended (obese), normal bowel sounds, soft. Absent: tenderness - Extremities Exam Extremities exam: Present: pedal edema (1+ BLE). Absent: joint swelling, normal inspection (Venous stasis dermatitis noted to the BLE), tenderness Additional comments: Right foot dressing C/D/I. - Neurological Exam Neurological exam: Present: alert, oriented X3, no focal deficits - Psychiatric Psychiatric exam: Present: normal affect, normal mood - Skin Skin exam: Present: dry, intact, normal color, warm Infectious Disease CN: Results - Labs CBC & Chem 7: 05/29/18 09:34 05/29/18 09:34 - VTE Documentation of Mechanical Device: Intermittent pneumatic compression device Consult Discharge Plan - Plan Referrals: Radha Chavez DO [Primary Care Provider] - - Attending Attestation I examined this patient and my medical decision-making was reviewed with the Resident Physician. I agree with the documented findings, disposition and treatment plan as described except to the extent set forth below. This is an addendum to original report dictated by Obdulia Carrasco CNP. Please refer to Obdulia's note for full detail. Patient is a 53-year-old gentleman with medical history mentioned below presented to the hospital on 05/27 for right foot infection. Patient on presentation had sepsis criteria. Patient was taken to surgery by Dr. Ramirez where he underwent incision and drainage below fascia of the right foot and application of PuraPly organic wound matrix graft. Intra-Op cultures were sent. Patient also had blood cultures obtained on 1 out of 2 sets were positive for gram-positive cocci staph species with MecA gene likely coag- negative staph a contaminant. Patient appears comfortable and pleasant. He tells me is still hungry. Does not appear toxic. Assessment and plan Sepsis Bacteremia Osteomyelitis Right foot ulcer Venous stasis dermatitis Obstructive sleep apnea Morbid obesity His congestive heart failure Hypertension His hyperlipidemia Diabetes mellitus type 2 Recommendations: The bacteremia is likely contaminant. As for the osteomyelitis: Location: Right distal and proximal 5th phalanx. Likely secondary to DFU. CT of the right foot showed findings suspicious for OM of the 5th distal and proximal phalanx and cellulitis. Podiatry consulted and following. Planning to take the patient to the OR later today. Antibiotics started per the primary team although the patient clinically does not appear toxic. Check ESR and CRP. Await intra-op findings and cultures. Wound care and activity restrictions per the Podiatry team. Continue Vancomycin IV. Pharmacy to dose. Goal trough ~15. Continue Zosyn 3.375 grams IV Q8H. Duration of treatment depends on the clinical picture. Monitor renal function and for drug toxicity and dose-adjust antibiotics.
--- NOTE | 2018-05-29 13:56 | Anesthesia Evaluation PreOp ---
Date of Encounter: 05/29/18 Time of Encounter: 14:00 - Past History Planned Operation: I and D Rt Foot Cardiac History: HTN, Hyperlipidemia Pulmonary History: Asthma MANAGER ACCOUNT MANAGEMENT History: Denies Any Significant HX Other Medical History: Diabetes Type II, Other (Arthritis, Morbid Obesity) Anesthesia History: No Prior Anesthetic Complications Alcohol Use: none Drug use: none Medications and Allergies Insulin Glargine [Lantus] 75 unit SQ BID 01/19/16 [History] Aspirin Enteric Coated [Aspirin EC] 81 mg PO DAILY 05/01/17 [History] Atorvastatin [Lipitor] 40 mg PO HS 08/21/17 [History] Metformin HCl [Fortamet] 1,000 mg PO BID 08/21/17 [History] Furosemide [Lasix] 80 mg PO BID 05/27/18 [History] Insulin LISPRO [Humalog] 0 unit SQ TIDWM 05/27/18 [History] 3 Allergy/AdvReac Type Severity Reaction Status Date / Time codeine AdvReac Mild Constipatio Verified 05/27/18 16:47 n - Meds/Allergy Pre-op Review Medications Reviewed: Yes Allergies Reviewed: Yes Beta Blockers on Current Med List: No Anesthesia Results - Labs 05/29/18 09:34 05/29/18 09:34 - Imaging Additional studies: ECHO 2018 EF 60% Anesthesia Exam Vital Signs/O2 Sat/Glucose, Most Current Temp Pulse Resp BP Pulse Ox 05/29/18 11:03 99.5 F 83 18 128/68 95 Height: 5'11 Weight: 370 lbs NPO (# of Hours): MN Pain Scale: 0 - HEENT Pupil (Motor): Pupils equal, EOMI Mallampati: III Oral Opening: Less than or equal to 3 - MANAGER ACCOUNT MANAGEMENT LOC: Oriented MANAGER ACCOUNT MANAGEMENT Motor: Normal RUE, Normal LUE, Normal RLE, Normal LLE, Normal Face MANAGER ACCOUNT MANAGEMENT Sensory: Normal: RUE, LUE, RLE, LLE, Face - Cardiac Rhythm: Regular Murmur: None JVD: No Carotid Bruit: No - Pulmonary Breath Sounds: bilateral Clear Respiratory Effort: Symmetrical Anesthesia Assess/Plan ASA Score: 3 (MO HTN DM) Modified Freistatt Scale for Level of Consciousness: Cooperative, oriented, and tranquil Anesthetic Plan: MAC Monitoring Plan: Standard Monitors Recovery Plan: Other (Discussed MAC, possible GA, agrees to proceed)
[2018-05-29] MEDS ORDERED: Bupivacaine/Clonidine Syringe 1 EACH SYRINGE ONE (14:47)
[2018-05-29] MEDS ORDERED: *HR* FentaNYL (PF) 100 MCG/2 ML VIAL ONE (15:27)
[2018-05-29] MEDS ORDERED: Lidocaine -MPF 2% 2 ML VIAL ONE (15:27)
[2018-05-29] MEDS ORDERED: Propofol 500 MG/50 ML INFUS..BTL ONE (15:27)
[2018-05-29] MEDS ORDERED: *HR* Propofol 200 MG/20 ML VIAL IVP ONE (15:32)
--- NOTE | 2018-05-29 15:56 | Anesthesia Evaluation Post Op ---
Date of Encounter: 05/29/18 Time of Encounter: 16:00 - Lungs Lungs: Clear Ascult./Percussion - Airway Airway: Non-obstructed - Cardiovascular Regular Rate - Mental Status Mental Status: Alert & Oriented, Answers Appropriately - Pain Pain Scale: 0 - Nausea Vomiting Nausea Vomiting: Not Present - Hydration Hydration: Tolerates oral liquids - Discharge PostOp Status: Transfer Patient to floor
--- NOTE | 2018-05-29 15:59 | Orthopedic Operative Note ---
Date of procedure: 05/29/18 Pre-op diagnosis: Diabetic foot ulcer right Post-op diagnosis: same Procedure: 05/29/18 15:54 #1 incision and drainage below fascia , right foot #2 application of PuraPly organic wound matrix graft Implants: None Complications: None Anesthesia: MAC, local Local Anesthetics: 0.25% Sensorcaine HCL SubQ (cc) Surgeon: Glen Ramirez Was there an first assistant manager present: No Estimated blood loss (cc): 10 Tourniquet Time (Minutes): 0 Specimen: Cultures right foot Condition: stable Disposition: floor Procedure in Detail: 05/29/18 15:56 Details in summary of procedure: The patient was brought to surgical suite. A sign in procedure was performed. Patient was then transferred to the surgical table and positioned properly safely securely. No tourniquet was used. Right foot was elevated on a foam block. Right ankle was then prepped with alcohol 3 times. Anesthetic timeout was taken. Local ankle block was carried out without difficulty or complication. Right foot was then prepped and draped usual sterile manner. Surgical timeout taken. The wound measured approximately 2.5 cm in length 2.5 cm in width unstageable with at least 50% eschar and necrotic tissue and 50% fibrin. We also visualized a small ulcer on the base of the fifth toe as well. Linear incision was then begun at the lateral aspect of the mid shaft of the proximal phalanx the fifth toe right foot and brought proximally along the border of the ulceration which encompassed the lateral plantar aspect of the fifth MTPJ. At that point #15 scalpel blade was then used to perform an incision excising ulceration completely down to the deep fascia. Ulceration was then excised. Cultures were taken.. Hemostasis was achieved with use of a Bovie. The wound was flushed copious amounts sterile saline. All necrotic tissue was then debrided distally proximally laterally and medially. No evidence of sinus tract medially or plantarly. Concern for possible osteomyelitis of the proximal phalanx clinically. The wound was flushed with copious amounts sterile saline using Ortholav/Surgilav, with 1000 mL of saline. Satisfied the wound was clean without any evidence of loculated abscess or other necrosis or purulence the wound was sprayed with PRP a PuraPly organic wound matrix was then applied over the wound sprayed with more PRP Adaptic 4 x 4's Kerlix and compressive dressing. Application of the dressing was unremarkable with compression. Capillary rebound time is normal to all toes [id number] right foot. Patient was sent to holding room in good condition with vital signs stable S May blood loss less than 10 mL
[2018-05-29] MEDS ORDERED: Dextrose Gel 15 GM/37.5 ML TUBE PO PRN ×2 (16:14)
[2018-05-29] MEDS ORDERED: D5% in Water 1,000 ML IVC PRN (16:14)
[2018-05-29] MEDS ORDERED: Naloxone 0.4 MG/ML INJ IVP PRN (16:14)
[2018-05-29] MEDS ORDERED: *HR* Dextrose 50 % in Water (Syg) 50 ML SYRINGE IVP PRN (16:14)
[2018-05-29] MEDS: Furosemide 40 MG/4 ML VIAL IVP SCH (17:31)
[2018-05-30 01:57] LABS: Basophils % 0.4 %; Eosinophils # 0.3 K/mcL (0.0-0.6); Eosinophils % 4.6 %; Hematocrit 34.5 % (37.5-50.1); Hemoglobin 11.1 g/dL (12.9-16.9); Immature Granulocytes % 0.7 % (0-4); Lymphocytes # 0.6 K/mcL (0.6-4.6); Lymphocytes % 7.8 %; Mean Corpuscular HGB Conc 32.2 g/dL (31.6-35.5); Mean Corpuscular Hemoglobin 28.8 pg (28.0-33.3); Mean Corpuscular Volume 89.4 fL (83.0-100.0); Mean Platelet Volume 10.2 fL (9.4-12.4); Monocytes # 0.5 K/mcL (0.0-1.3); Monocytes % 7.1 %; Neutrophils # 5.8 K/mcL (1.6-8.9); Platelet Count 257 K/mcL (140-400); Red Blood Count 3.86 M/mcL (4.19-5.50); Red Cell Distribution Width 13.8 % (11.5-14.5); Segmented Neutrophils % 79.4 %
[2018-05-30 02:16] LABS: BUN/Creatinine Ratio 12 (6-26); Blood Urea Nitrogen 16 mg/dL (6-20); Calcium 8.8 mg/dL (8.6-10.3); Carbon Dioxide 29 mEq/L (23-29); Chloride 100 mEq/L (98-107); Glucose 191 mg/dL (70-105); Osmolality,Calculated 286 (280-300); Potassium 4.1 mEq/L (3.5-5.1); Sodium 135 mEq/L (136-145); eGFR For African Americans > 60 (> 60); eGFR For Non-African Americans 58 (> 60)
[2018-05-30] MEDS: *HR* Heparin 5,000 UNIT/ML VIAL SQ SCH ×3 (04:20→19:46)
[2018-05-30] MEDS: Insulin LISPRO 300 UNITS/3 ML VIAL SQ SCH ×4 (06:25→21:42)
[2018-05-30] MEDS ORDERED: Acetaminophen 325 MG TABLET PO PRN (06:54)
--- NOTE | 2018-05-30 09:12 | Internal Med Progress Note ---
<Boyd Loredo S - Last Filed: 05/30/18 13:04> Date of Encounter: 05/30/18 Time of Encounter: 08:30 - Assessment and plan (1) Foot ulcer Current Visit: Yes Status: Acute Assessment and plan: POD#1 s/p debridement rt foot ulcer. Pt on zosyn and vancomycin day 3. Will monitor CBC for signs of infxn s/p sx. Consult to ID for osteomyelitis - on vanc /zosyn day 3. ESR 66 CRP 84. 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 WOund cx pending Qualifiers: Laterality: right Non-pressure ulcer stage: unspecified non-pressure ulcer stage Qualified Code(s): L97.519 - Non-pressure chronic ulcer of other part of right foot with unspecified severity (2) Hypertension Current Visit: No Status: Chronic Assessment and plan: Pt takes lisinopril at home. BP today is 120/69 Qualifiers: Hypertension type: essential hypertension Qualified Code(s): I10 - Essential (primary) hypertension (3) Hyperlipidemia Current Visit: No Status: Chronic Assessment and plan: Continue home medicine. Qualifiers: Hyperlipidemia type: mixed hyperlipidemia Qualified Code(s): E78.2 - Mixed hyperlipidemia (4) DVT prophylaxis Current Visit: No Status: Acute Assessment and plan: SQ heparin. (5) Type 2 diabetes mellitus Current Visit: No Status: Chronic Assessment and plan: Diabetic diet. Sliding scale and HbA1c ordered HbA1c has improved since last year. Down to 7.6 from 10.2. Qualifiers: Diabetes mellitus correction insulin use: with correction use Diabetes mellitus complication status: with skin complications Diabetes mellitus complication detail: with foot ulcer Qualified Code(s): E11.621 - Type 2 diabetes mellitus with foot ulcer; L97.509 - Non-pressure chronic ulcer of other part of unspecified foot with unspecified severity; Z79.4 - halfway ( current) use of insulin (6) STEPHIE (obstructive sleep apnea) Current Visit: No Status: Chronic Assessment and plan: On CPAP (7) Congestive heart failure (CHF) Current Visit: Yes Status: Chronic Assessment and plan: Diastolic CHF. ECHO showed 55-60% EF. Aortic sclerosis. Atypical septal motion consistent with BBB. Last ECHO was 2016 showed EF 65-70%. Fluid restrict 1.5Lday. IV Lasix 40mg BID. Strict I&O's. Cardiac low fat low salt diet. Qualifiers: Heart failure type: unspecified Heart failure chronicity: unspecified Qualified Code(s): I50.9 - Heart failure, unspecified - Time Spent With Patient Total time spent is greater than 50% in coordination of care (as documented) at patient's floor/unit and/or counseling patient: - Subjective Interval history: pt seen at bedside. he was admitted from wound care due to right foot ulcer. Pt is POD#1 s/p debridement of rt 5th toe. He has some pain in the right foot but says it is bearable. He has no chest pain, SOB, n/v/d, numbness or tingling. He is ambulating with assistance and is tolerating food. He hasn't had BM since saturday. CT showed possible osteomyelitis with cellulitis. severe irregular and erosive changes are seen at the 5th distal phalynx and along lateral aspect head of the 5th proximal phalnyx, there is soft tisse ulceration at the lateral 5th distal phalnx. there is diffuse sq edema and cellulitis on CT. ESR was 66, crp 84. ID is seeing pt and he is on zosyn/vancomycin day 3. - Constitutional Vitals: Temp Pulse Resp BP Pulse Ox 97.6 F 81 18 120/69 95 05/30/18 07:04 05/30/18 07:04 05/30/18 07:04 05/30/18 07:04 05/30/18 07:04 General appearance: Present: cooperative, A&O X 3, morbidly obese, pleasant - Respiratory Respiratory exam: Present: decreased breath sounds Additional comments: decreased breath sounds 2/2 body habitus - Cardiovascular Cardiovascular exam: Present: RRR, +S1, +S2. Absent: JVD - GI/Abdominal GI/Abdominal exam: Present: soft, no peritoneal signs. Absent: guarding, rigid , tenderness - Neurological Exam Neurological exam: Present: alert, oriented X3, no focal deficits - Skin Skin exam: Present: intact Additional comments: pt has venous stasis changes b/l LE Internal Medicine: Result - Labs CBC & Chem 7: 05/30/18 01:29 05/30/18 01:29 Labs: Short CBC 05/29/18 05/30/18 Range/Units 09:34 01:29 WBC 6.3 7.3 (4.3-11.1) K/mcL Hgb 11.7 L 11.1 L (12.9-16.9) g/dL Hct 36.2 L 34.5 L (37.5-50.1) % Plt Count 250 257 (140-400) K/mcL Neutrophils # 5.0 5.8 (1.6-8.9) K/mcL BMP 05/29/18 05/30/18 09:34 01:29 Sodium 136 135 L Potassium 4.6 4.1 Chloride 104 100 Carbon Dioxide 28 29 BUN 15 16 Creatinine 0.98 1.29 Glucose 138 H 191 H Calcium 8.8 8.8 - VTE Documentation of Mechanical Device: Intermittent pneumatic compression device Consult Discharge Plan - Plan Referrals: Radha Chavez DO [Primary Care Provider] - <Manjinder Bland - Last Filed: 05/30/18 18:57> Date of Encounter: 05/30/18 - Assessment and plan (1) Hypertension Current Visit: No Status: Chronic Qualifiers: Hypertension type: essential hypertension Qualified Code(s): I10 - Essential (primary) hypertension (2) Hyperlipidemia Current Visit: No Status: Chronic Qualifiers: Hyperlipidemia type: mixed hyperlipidemia Qualified Code(s): E78.2 - Mixed hyperlipidemia (3) DVT prophylaxis Current Visit: No Status: Acute (4) Type 2 diabetes mellitus Current Visit: No Status: Chronic Qualifiers: 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: with dedicated intermodal truck driver use Diabetes mellitus complication status: with skin complications Diabetes mellitus complication detail: with foot ulcer Qualified Code(s): E11.621 - Type 2 diabetes mellitus with foot ulcer; L97.509 - Non-pressure chronic ulcer of other part of unspecified foot with unspecified severity; 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 (5) STEPHIE (obstructive sleep apnea) Current Visit: No Status: Chronic (6) Foot ulcer Current Visit: Yes Status: Acute (7) Congestive heart failure (CHF) Current Visit: Yes Status: Chronic Qualifiers: Heart failure type: unspecified Heart failure chronicity: unspecified Qualified Code(s): I50.9 - Heart failure, unspecified - Time Spent With Patient Total time spent is greater than 50% in coordination of care (as documented) at patient's floor/unit and/or counseling patient: - Constitutional Vitals: Temp Pulse Resp BP Pulse Ox 97.9 F 78 16 114/67 95 05/30/18 14:50 05/30/18 14:50 05/30/18 14:50 05/30/18 14:50 05/30/18 14:50 Internal Medicine: Result - Labs CBC & Chem 7: 05/30/18 01:29 05/30/18 01:29 Labs: Short CBC 05/30/18 Range/Units 01:29 WBC 7.3 (4.3-11.1) K/mcL Hgb 11.1 L (12.9-16.9) g/dL Hct 34.5 L (37.5-50.1) % Plt Count 257 (140-400) K/mcL Neutrophils # 5.8 (1.6-8.9) K/mcL BMP 05/30/18 01:29 Sodium 135 L Potassium 4.1 Chloride 100 Carbon Dioxide 29 BUN 16 Creatinine 1.29 Glucose 191 H Calcium 8.8 - Attending Attestation I examined this patient and my medical decision-making was reviewed with the Resident Physician. I agree with the documented findings, disposition and treatment plan as described except to the extent set forth below. Wound culture growing GNR, sensitivities pending.
[2018-05-30] MEDS: Piperacillin/Tazobactam 3.375 GM in 0.9 % Sodium Chloride Mini Bag 100 ML IVPB SCH ×2 (09:17→16:18)
[2018-05-30] MEDS: Furosemide 40 MG/4 ML VIAL IVP SCH ×2 (09:18→16:20)
[2018-05-30] MEDS: Aspirin Enteric Coated 81 MG Tablet PO SCH (09:18)
[2018-05-30] MEDS: Insulin DETEMIR 100 UNIT/ML X5UNITS SQ SCH ×2 (09:19→21:41)
[2018-05-30] MEDS: Pantoprazole 40 MG VIAL IVP SCH (09:19)
--- NOTE | 2018-05-30 11:02 | Infectious Disease Progress No ---
Date of Encounter: 05/30/18 Time of Encounter: 11:00 - Assessment and Plan (1) Sepsis Current Visit: Yes Status: Resolved The patient had two SIRs criteria on admission. Likely secondary to osteomyelitis of the right foot. Resolved. WBC normalized. Tachycardia has resolved. Blood cultures drawn 05/27/18 are positive 1/2 sets for Staph species, but not Staph aureus. Additional blood cultures drawn 05/29/18 are pending x 2 sets. Qualifiers: Sepsis type: sepsis due to unspecified organism Qualified Code(s): A41.9 - Sepsis, unspecified organism (2) Bacteremia Current Visit: Yes Status: Acute Causative organism S. epi. Blood cultures drawn 05/27/18 are positive 1/2 sets for Staph epi. Likely a contaminant. Repeat blood cultures x 2 sets drawn 05/29/18 are pending. Okay to discontinue contact precautions. No further treatment required, but will continue IV antibiotics for the right foot OM. (3) Osteomyelitis Current Visit: Yes Status: Suspected Causative organism unclear. Location: Right distal and proximal 5th phalanx. Likely secondary to DFU. CT of the right foot showed findings suspicious for OM of the 5th distal and proximal phalanx and cellulitis. Podiatry consulted and following. Status post I & D below the fascia right foot 05/29/[address] Ramirez. Operative note reviewed. Findings consistent with OM of the proximal phalanx noted intra-op. Cultures are pending. ESR 66 and CRP 84. Await intra-op cultures. Wound care and activity restrictions per the Podiatry team. Continue Vancomycin IV. Pharmacy to dose. Goal trough ~15. Continue Zosyn 3.375 grams IV Q8H. Duration of treatment depends on the clinical picture, but likely 6 weeks of IV antibiotics. Monitor renal function and for drug toxicity and dose-adjust antibiotics. director water and waste services to assist with discharge planning. Consult VAT for IV line placement once final antibiotic regimen has been determined. Further recommendations from the ID team regarding antibiotics, OPAT, and follow -up to follow pending culture results. Qualifiers: Osteomyelitis type: acute hematogenous Osteomyelitis location: foot Laterality: right Qualified Code(s): M86.071 - Acute hematogenous osteomyelitis, right ankle and foot (4) Foot ulcer Current Visit: Yes Status: Acute Location: Right lateral foot. Secondary to poorly fitted shoes and LE edema. Wound care per the podiatry team. Qualifiers: Laterality: right Non-pressure ulcer stage: unspecified non-pressure ulcer stage Qualified Code(s): L97.519 - Non-pressure chronic ulcer of other part of right foot with unspecified severity (5) Venous stasis dermatitis Current Visit: No Status: Acute Recommendations per the Podiatry team and wound care team. Qualifiers: Laterality: bilateral Qualified Code(s): I87.2 - Venous insufficiency ( chronic) (peripheral) (6) STEPHIE (obstructive sleep apnea) Current Visit: No Status: Chronic (7) Congestive heart failure (CHF) Current Visit: Yes Status: Chronic Qualifiers: Heart failure type: unspecified Heart failure chronicity: unspecified Qualified Code(s): I50.9 - Heart failure, unspecified (8) Morbid obesity with BMI of 50.0-59.9, adult Current Visit: No Status: Chronic (9) Hypertension Current Visit: No Status: Chronic Qualifiers: Hypertension type: essential hypertension Qualified Code(s): I10 - Essential (primary) hypertension (10) Hyperlipidemia Current Visit: No Status: Chronic Qualifiers: Hyperlipidemia type: mixed hyperlipidemia Qualified Code(s): E78.2 - Mixed hyperlipidemia (11) Type 2 diabetes mellitus Current Visit: No Status: Chronic Uncontrolled. HgbA1C 7.6% Recommend aggressive glucose monitoring and control to promote wound healing and prevent re-infection. Management per the primary team. 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 No acute events noted overnight. Patient resting in bed. Denies fevers, chills, or rigors. Denies chest pain, shortness of breath, or cough. Denies nausea, vomiting, or diarrhea. States he has not had a BM since Saturday. Denies abdominal pain, urinary complaints, or appetite changes. Denies oral thrush or skin lesions. Denies pain at the surgical site. Infect Dis PN-Objective Data - Labs CBC & Chem 7: 06/01/18 07:07 06/01/18 07:07 Labs: Laboratory Results - last 24 hr 05/29/18 05/29/18 05/29/18 09:34 11:21 16:37 WBC RBC Hgb Hct MCV MCH MCHC RDW Plt Count MPV Immature Gran % Seg Neutrophils % Lymphocytes % Monocytes % Eosinophils % Basophils % Neutrophils # Lymphocytes # Monocytes # Eosinophils # Basophils # ESR Sodium Potassium Chloride Carbon Dioxide BUN Creatinine 0.98 Est GFR ( Amer) > 60 Est GFR (Non-Af Amer) > 60 BUN/Creatinine Ratio 15 Glucose POC Glucose 163 H 151 H Calculated Osmolality Calcium C-Reactive Protein 05/29/18 05/29/18 05/30/18 20:59 23:57 01:29 WBC 7.3 RBC 3.86 L Hgb 11.1 L Hct 34.5 L MCV 89.4 MCH 28.8 MCHC 32.2 RDW 13.8 Plt Count 257 MPV 10.2 Immature Gran % 0.7 Seg Neutrophils % 79.4 Lymphocytes % 7.8 Monocytes % 7.1 Eosinophils % 4.6 Basophils % 0.4 Neutrophils # 5.8 Lymphocytes # 0.6 Monocytes # 0.5 Eosinophils # 0.3 Basophils # 0.0 ESR Sodium Potassium Chloride Carbon Dioxide BUN Creatinine Est GFR ( Amer) Est GFR (Non-Af Amer) BUN/Creatinine Ratio Glucose POC Glucose 214 H 196 H Calculated Osmolality Calcium C-Reactive Protein 05/30/18 05/30/18 05/30/18 01:29 01:29 01:29 WBC RBC Hgb Hct MCV MCH MCHC RDW Plt Count MPV Immature Gran % Seg Neutrophils % Lymphocytes % Monocytes % Eosinophils % Basophils % Neutrophils # Lymphocytes # Monocytes # Eosinophils # Basophils # ESR 66 H Sodium 135 L Potassium 4.1 Chloride 100 Carbon Dioxide 29 BUN 16 Creatinine 1.29 Est GFR ( Amer) > 60 Est GFR (Non-Af Amer) 58 L BUN/Creatinine Ratio 12 Glucose 191 H POC Glucose Calculated Osmolality 286 Calcium 8.8 C-Reactive Protein 84 H 05/30/18 06:21 WBC RBC Hgb Hct MCV MCH MCHC RDW Plt Count MPV Immature Gran % Seg Neutrophils % Lymphocytes % Monocytes % Eosinophils % Basophils % Neutrophils # Lymphocytes # Monocytes # Eosinophils # Basophils # ESR Sodium Potassium Chloride Carbon Dioxide BUN Creatinine Est GFR ( Amer) Est GFR (Non-Af Amer) BUN/Creatinine Ratio Glucose POC Glucose 161 H Calculated Osmolality Calcium C-Reactive Protein Cultures: Cultures 05/29/18 16:31 Blood Culture - Preliminary Peripheral Venipuncture Culture is incubating and being continuously monitored for growth. Final report to follow. 05/29/18 16:31 Blood Culture - Preliminary Peripheral Venipuncture Culture is incubating and being continuously monitored for growth. Final report to follow. Exam - Constitutional Vitals: Temp Pulse Resp BP Pulse Ox 97.5 F L 72 18 124/82 95 05/30/18 10:10 05/30/18 10:10 05/30/18 10:10 05/30/18 10:10 05/30/18 10:10 General appearance: cooperative, morbidly obese, no acute distress - Head Head exam: Present: atraumatic, normal inspection, normocephalic - Eye Eye exam: Present: EOMI, normal appearance, PERRL Pupils: Present: normal accommodation - ENT ENT exam: Present: mucous membranes moist - Neck Neck exam: Present: normal inspection - Respiratory Respiratory exam: Present: CTAB. Absent: rales, respiratory distress, rhonchi, wheezes - Cardiovascular Cardiovascular exam: Present: RRR, +S1, +S2 - GI/Abdominal GI/Abdominal exam: Present: distended (obese), normal bowel sounds, soft. Absent: tenderness - Extremities Exam Extremities exam: Present: pedal edema (1+ BLE). Absent: joint swelling, normal inspection (Venous stasis dermatitis noted to the BLE.), tenderness Additional comments: Right foot dressing C/D/I. - Neurological Exam Neurological exam: Present: alert, oriented X3, no focal deficits - Psychiatric Psychiatric exam: Present: normal affect, normal mood - Skin Skin exam: Present: dry, intact, normal color, warm - VTE Documentation of Mechanical Device: Intermittent pneumatic compression device Consult Discharge Plan - Plan Referrals: Radha Chavez DO [Primary Care Provider] - - Attending Attestation I examined this patient and my medical decision-making was reviewed with the Resident Physician. I agree with the documented findings, disposition and treatment plan as described except to the extent set forth below.
[2018-05-30] MEDS ORDERED: Nicotine 2 MG GUM BC PRN (15:55)
--- NOTE | 2018-05-30 16:47 | Podiatry Progress Note ---
Date of Encounter: 05/30/18 Time of Encounter: 17:00 - Assessment and Plan (1) Foot ulcer Current Visit: Yes Status: Acute POD #1 05/29/18 15:54 #1 incision and drainage below fascia , right foot #2 application of PuraPly organic wound matrix graft Will leave dressing intact until discharge Will need wound vac once discharged to F If dressing becomes saturated or soiled will need to be changed Will need followed in wound care center with 1 week after discharge NWB to right foot Will need post operative shoe to bedside Await intra op cultures for antibiotic coverage Continue close monitoring. Qualifiers: Laterality: right Non-pressure ulcer stage: unspecified non-pressure ulcer stage Qualified Code(s): L97.519 - Non-pressure chronic ulcer of other part of right foot with unspecified severity Subjective Interval history: POD #1 05/29/18 15:54 #1 incision and drainage below fascia , right foot #2 application of PuraPly organic wound matrix graft Resting comfortably- no drainage noted to dressing. Denies any issues at this time. Denies any calf pain or SOB. Objective - Vital Signs Vital Signs: Vital Signs Temp Pulse Resp BP Pulse Ox 05/30/18 14:50 97.9 F 78 16 114/67 95 05/30/18 12:00 97.5 F L 77 16 105/65 96 05/30/18 10:10 97.5 F L 72 18 124/82 95 05/30/18 07:04 97.6 F 81 18 120/69 95 05/30/18 03:13 98.1 F 90 18 114/64 97 05/29/18 20:54 98.0 F 82 16 115/66 99 05/29/18 17:10 97.8 F 82 16 132/74 98 Intake and Output 05/30/18 05/30/18 05/30/18 07:59 15:59 23:59 Intake Total 250 / 250 200 / 200 Output Total 350 / 350 2500 / 2500 200 / 200 Balance -100 / -100 -2300 / -2300 -200 / -200 Intake: IV Fluids 250 / 250 200 / 200 Zosyn 3.375 GM In 0.9 % Sodium 200 / 200 Chloride (Mini-Bag +) 100 ML @ 25 mls/hr IVPB Q8HR [facility] Rx#: [id number] Vancocin 1,500 MG In 0.9 % 250 / 250 Sodium Chloride 250 ML @ 166.67 mls/hr IVPB Q12H [facility] Rx#: [id number] Oral 0 / 0 0 / 0 Output: Urine 350 / 350 2500 / 2500 200 / 200 Other: Meal Lunch Percent of Meal Consumed 100% # Bowel Movements 0 0 Weight 168.3 kg Blood Glucose* 161 217 204 Patient Weight 05/30/18 23:59 Weight 168.3 kg - Exam Exam: Awake, alert and oriented Toes warm, <3 seconds cap refill Dressing to remain in place until discharge unless saturated No calf pain with manual compression . - Lab Result Diagrams: 06/01/18 07:07 06/01/18 07:07 Labs: Abnormal lab results RBC 3.86 M/mcL (4.19-5.50) L 05/30/18 01:29 Hgb 11.1 g/dL (12.9-16.9) L 05/30/18 01:29 Hct 34.5 % (37.5-50.1) L 05/30/18 01:29 ESR 66 mm/hr (0-10) H 05/30/18 01:29 Sodium 135 mEq/L (136-145) L 05/30/18 01:29 Est GFR (Non-Af Amer) 58 (> 60) L 05/30/18 01:29 Glucose 191 mg/dL (70-105) H 05/30/18 01:29 POC Glucose 204 mg/dL (70-99) H 05/30/18 16:14 Hemoglobin A1c 7.6 % (-5.6) H 05/28/18 01:39 C-Reactive Protein 84 mg/L (Less than 10) H 05/30/18 01:29 Vancomycin Trough 19 mcg/mL (5-10) H 05/29/18 06:38 Staphylococcus sp PCR DETECTED (Not Detect) A 05/27/18 18:25 mecA-Methicil Res Gene DETECTED (Not Detect) A 05/27/18 18:25 Microbiology, Last 48 Hours 05/29/18 11:30 Wound Culture - Preliminary Right Foot Gram Negative Ry 05/29/18 16:31 Blood Culture - Preliminary Peripheral Venipuncture Culture is incubating and being continuously monitored for growth. Final report to follow. 05/29/18 16:31 Blood Culture - Preliminary Peripheral Venipuncture Culture is incubating and being continuously monitored for growth. Final report to follow. - VTE Documentation of Mechanical Device: Intermittent pneumatic compression device Consult Discharge Plan - Plan Referrals: Radha Chavez DO [Primary Care Provider] -
[2018-05-30] MEDS ORDERED: Furosemide 40 MG/4 ML VIAL IVP SCH (21:00)
[2018-05-31] MEDS: Piperacillin/Tazobactam 3.375 GM in 0.9 % Sodium Chloride Mini Bag 100 ML IVPB SCH ×4 (00:21→23:42)
[2018-05-31 03:52] LABS: Basophils % 0.5 %; Eosinophils # 0.3 K/mcL (0.0-0.6); Eosinophils % 4.6 %; Hematocrit 34.6 % (37.5-50.1); Immature Granulocytes % 1.1 % (0-4); Lymphocytes # 0.6 K/mcL (0.6-4.6); Lymphocytes % 9.8 %; Mean Corpuscular HGB Conc 31.8 g/dL (31.6-35.5); Mean Corpuscular Hemoglobin 28.1 pg (28.0-33.3); Mean Corpuscular Volume 88.3 fL (83.0-100.0); Monocytes # 0.6 K/mcL (0.0-1.3); Monocytes % 8.7 %; Neutrophils # 4.7 K/mcL (1.6-8.9); Platelet Count 264 K/mcL (140-400); Red Blood Count 3.92 M/mcL (4.19-5.50); Red Cell Distribution Width 13.7 % (11.5-14.5); Segmented Neutrophils % 75.3 %
[2018-05-31 04:07] LABS: Alanine Aminotransferase 18 Units/L (7-52); Albumin 3.6 g/dL (3.5-5.7); Albumin/Globulin Ratio 1.4 (1.1-2.2); Alkaline Phosphatase 86 Units/L (34-104); Aspartate Amino Transferase 19 Units/L (13-39); BUN/Creatinine Ratio 14 (6-26); Bilirubin,Total 0.4 mg/dL (0.3-1.0); Blood Urea Nitrogen 20 mg/dL (6-20); Calcium 8.8 mg/dL (8.6-10.3); Carbon Dioxide 30 mEq/L (23-29); Chloride 99 mEq/L (98-107); Globulin 2.6 g/dL (2.4-3.5); Glucose 227 mg/dL (70-105); Osmolality,Calculated 292 (280-300); Potassium 4.2 mEq/L (3.5-5.1); Sodium 136 mEq/L (136-145); Total Protein 6.2 g/dL (6.4-8.9); eGFR For African Americans > 60 (> 60); eGFR For Non-African Americans 51 (> 60)
[2018-05-31] MEDS: *HR* Heparin 5,000 UNIT/ML VIAL SQ SCH ×3 (04:25→21:24)
[2018-05-31] MEDS: Insulin LISPRO 300 UNITS/3 ML VIAL SQ SCH ×4 (08:14→21:32)
[2018-05-31] MEDS: Furosemide 40 MG/4 ML VIAL IVP SCH (08:14)
[2018-05-31] MEDS: Insulin DETEMIR 100 UNIT/ML X5UNITS SQ SCH ×2 (08:15→21:23)
[2018-05-31] MEDS: Aspirin Enteric Coated 81 MG Tablet PO SCH (08:15)
[2018-05-31] MEDS: Pantoprazole 40 MG VIAL IVP SCH (08:15)
[2018-05-31] MEDS: Nicotine 14 MG PATCH.TD24 TD SCH (08:15)
--- NOTE | 2018-05-31 12:50 | Internal Med Progress Note ---
<Boyd Loredo S - Last Filed: 05/31/18 12:48> Date of Encounter: 05/31/18 Time of Encounter: 09:40 - Assessment and plan (1) Foot ulcer Current Visit: Yes Status: Acute Assessment and plan: POD#2 s/p debridement rt foot ulcer. Pt on zosyn and vancomycin day 3. Will monitor CBC for signs of infxn s/p sx. Consult to ID for osteomyelitis - on vanc /zosyn day 4. ESR 66 CRP 84. PICC team consulted for line placement Qualifiers: Laterality: right Non-pressure ulcer stage: unspecified non-pressure ulcer stage Qualified Code(s): L97.519 - Non-pressure chronic ulcer of other part of right foot with unspecified severity (2) Hypertension Current Visit: No Status: Chronic Assessment and plan: Pt takes lisinopril at home. BP today is 116/71 Qualifiers: Hypertension type: essential hypertension Qualified Code(s): I10 - Essential (primary) hypertension (3) Hyperlipidemia Current Visit: No Status: Chronic Assessment and plan: Continue home medicine. Pt should stay on low fat, low cholesterol, low salt diet Qualifiers: Hyperlipidemia type: mixed hyperlipidemia Qualified Code(s): E78.2 - Mixed hyperlipidemia (4) DVT prophylaxis Current Visit: No Status: Acute Assessment and plan: SQ heparin. (5) Type 2 diabetes mellitus Current Visit: No Status: Chronic Assessment and plan: Diabetic diet. Sliding scale and HbA1c ordered HbA1c has improved since last year. Down to 7.6 from 10.2. Qualifiers: Diabetes mellitus fitness consultant insulin use: with usp use Diabetes mellitus complication status: with skin complications Diabetes mellitus complication detail: with foot ulcer Qualified Code(s): E11.621 - Type 2 diabetes mellitus with foot ulcer; L97.509 - Non-pressure chronic ulcer of other part of unspecified foot with unspecified severity; Z79.4 - [facility] ( current) use of insulin (6) STEPHIE (obstructive sleep apnea) Current Visit: No Status: Chronic Assessment and plan: On CPAP (7) Congestive heart failure (CHF) Current Visit: Yes Status: Chronic Assessment and plan: Diastolic CHF. ECHO showed 55-60% EF. Aortic sclerosis. Atypical septal motion consistent with BBB. Last ECHO was 2016 showed EF 65-70%. Fluid restrict 1.5Lday. IV Lasix 40mg BID. Strict I&O's. Cardiac low fat low salt diet. Qualifiers: Heart failure type: unspecified Heart failure chronicity: unspecified Qualified Code(s): I50.9 - Heart failure, unspecified - Time Spent With Patient Total time spent is greater than 50% in coordination of care (as documented) at patient's floor/unit and/or counseling patient: - Subjective Interval history: pt seen at bedside. he was admitted from wound care due to right foot ulcer. Pt is POD#2 s/p debridement of rt 5th toe. He has some pain in the right foot but says it is bearable. He has no chest pain, SOB, n/v/d, numbness or tingling. He is ambulating with assistance and is tolerating food. He hasn't had BM since saturday, gave him dulcolax. CT showed possible osteomyelitis with cellulitis. severe irregular and erosive changes are seen at the 5th distal phalynx and along lateral aspect head of the 5th proximal phalnyx, there is soft tisse ulceration at the lateral 5th distal phalnx. there is diffuse sq edema and cellulitis on CT. ESR was 66, crp 84. ID is seeing pt and he is on zosyn/vancomycin day 4 - Constitutional Vitals: Temp Pulse Resp BP Pulse Ox 98.0 F 73 16 116/71 97 05/31/18 10:00 05/31/18 10:00 05/31/18 10:00 05/31/18 10:05/31/18 10:00 General appearance: Present: cooperative, A&O X 3, morbidly obese, pleasant - Head Head exam: Present: atraumatic, normal inspection - Neck Neck exam general surgery: Present: supple - Cardiovascular Cardiovascular exam: Present: RRR, +S1, +S2 - GI/Abdominal GI/Abdominal exam: Present: normal bowel sounds, soft, no peritoneal signs. Absent: rebound, rigid - Neurological Exam Neurological exam: Present: no focal deficits - Psychiatric Psychiatric exam: Present: normal affect, normal mood - Skin Additional comments: b/l venous stasis changes Internal Medicine: Result - Labs CBC & Chem 7: 05/31/18 03:15 05/31/18 03:15 Labs: Short CBC 05/31/18 Range/Units 03:15 WBC 6.3 (4.3-11.1) K/mcL Hgb 11.0 L (12.9-16.9) g/dL Hct 34.6 L (37.5-50.1) % Plt Count 264 (140-400) K/mcL Neutrophils # 4.7 (1.6-8.9) K/mcL BMP 05/31/18 03:15 Sodium 136 Potassium 4.2 Chloride 99 Carbon Dioxide 30 H BUN 20 Creatinine 1.44 H Glucose 227 H Calcium 8.8 Liver Function 05/31/18 Range/Units 03:15 Total Bilirubin 0.4 (0.3-1.0) mg/dL AST 19 (13-39) Units/L ALT 18 (7-52) Units/L Alkaline Phosphatase 86 (34-104) Units/L Albumin 3.6 (3.5-5.7) g/dL - VTE Documentation of Mechanical Device: Venous foot pump, device Consult Discharge Plan - Plan Referrals: Radha Chavez DO [Primary Care Provider] - <Manjinder Bland - Last Filed: 05/31/18 15:54> Date of Encounter: 05/31/18 - Assessment and plan (1) Hypertension Current Visit: No Status: Chronic Qualifiers: Hypertension type: essential hypertension Qualified Code(s): I10 - Essential (primary) hypertension (2) Hyperlipidemia Current Visit: No Status: Chronic Qualifiers: Hyperlipidemia type: mixed hyperlipidemia Qualified Code(s): E78.2 - Mixed hyperlipidemia (3) DVT prophylaxis Current Visit: No Status: Acute (4) Type 2 diabetes mellitus Current Visit: No Status: Chronic Qualifiers: Diabetes mellitus usp insulin use: with fitness consultant use Diabetes mellitus complication status: with skin complications Diabetes mellitus complication detail: with foot ulcer Qualified Code(s): E11.621 - Type 2 diabetes mellitus with foot ulcer; L97.509 - Non-pressure chronic ulcer of other part of unspecified foot with unspecified severity; Z79.4 - [facility] ( current) use of insulin (5) STEPHIE (obstructive sleep apnea) Current Visit: No Status: Chronic (6) Foot ulcer Current Visit: Yes Status: Acute (7) Congestive heart failure (CHF) Current Visit: Yes Status: Chronic Qualifiers: Heart failure type: unspecified Heart failure chronicity: unspecified Qualified Code(s): I50.9 - Heart failure, unspecified - Time Spent With Patient Total time spent is greater than 50% in coordination of care (as documented) at patient's floor/unit and/or counseling patient: - Constitutional Vitals: Temp Pulse Resp BP Pulse Ox 97.7 F 86 16 124/63 97 05/31/18 14:37 05/31/18 14:37 05/31/18 14:37 05/31/18 14:37 05/31/18 14:37 Internal Medicine: Result - Labs CBC & Chem 7: 05/31/18 03:15 05/31/18 03:15 Labs: Short CBC 05/31/18 Range/Units 03:15 WBC 6.3 (4.3-11.1) K/mcL Hgb 11.0 L (12.9-16.9) g/dL Hct 34.6 L (37.5-50.1) % Plt Count 264 (140-400) K/mcL Neutrophils # 4.7 (1.6-8.9) K/mcL BMP 05/31/18 03:15 Sodium 136 Potassium 4.2 Chloride 99 Carbon Dioxide 30 H BUN 20 Creatinine 1.44 H Glucose 227 H Calcium 8.8 Liver Function 05/31/18 Range/Units 03:15 Total Bilirubin 0.4 (0.3-1.0) mg/dL AST 19 (13-39) Units/L ALT 18 (7-52) Units/L Alkaline Phosphatase 86 (34-104) Units/L Albumin 3.6 (3.5-5.7) g/dL - Attending Attestation I examined this patient and my medical decision-making was reviewed with the Resident Physician. I agree with the documented findings, disposition and treatment plan as described except to the extent set forth below.
[2018-05-31] MEDS ORDERED: Sennosides 8.6 MG TABLET PO PRN (15:13)
[2018-06-01] MEDS: *HR* Heparin 5,000 UNIT/ML VIAL SQ SCH ×3 (04:48→19:47)
[2018-06-01 07:56] LABS: Basophils % 0.4 %; Eosinophils # 0.3 K/mcL (0.0-0.6); Eosinophils % 3.6 %; Hematocrit 34.6 % (37.5-50.1); Hemoglobin 11.1 g/dL (12.9-16.9); Immature Granulocytes % 0.9 % (0-4); Lymphocytes # 0.6 K/mcL (0.6-4.6); Lymphocytes % 7.7 %; Mean Corpuscular HGB Conc 32.1 g/dL (31.6-35.5); Mean Corpuscular Hemoglobin 28.2 pg (28.0-33.3); Mean Platelet Volume 10.1 fL (9.4-12.4); Monocytes # 0.7 K/mcL (0.0-1.3); Monocytes % 8.9 %; Neutrophils # 5.9 K/mcL (1.6-8.9); Platelet Count 282 K/mcL (140-400); Red Blood Count 3.93 M/mcL (4.19-5.50); Red Cell Distribution Width 13.8 % (11.5-14.5); Segmented Neutrophils % 78.5 %
[2018-06-01] MEDS: Insulin LISPRO 300 UNITS/3 ML VIAL SQ SCH ×4 (08:09→21:16)
[2018-06-01] MEDS: Piperacillin/Tazobactam 3.375 GM in 0.9 % Sodium Chloride Mini Bag 100 ML IVPB SCH ×3 (08:10→23:46)
[2018-06-01] MEDS: Nicotine 14 MG PATCH.TD24 TD SCH (08:10)
[2018-06-01] MEDS: Aspirin Enteric Coated 81 MG Tablet PO SCH (08:10)
[2018-06-01] MEDS: Pantoprazole 40 MG VIAL IVP SCH (08:10)
[2018-06-01] MEDS: Insulin DETEMIR 100 UNIT/ML X5UNITS SQ SCH ×2 (08:11→21:17)
[2018-06-01 08:20] LABS: Alanine Aminotransferase 23 Units/L (7-52); Albumin 3.6 g/dL (3.5-5.7); Albumin/Globulin Ratio 1.2 (1.1-2.2); Alkaline Phosphatase 88 Units/L (34-104); Aspartate Amino Transferase 18 Units/L (13-39); BUN/Creatinine Ratio 14 (6-26); Bilirubin,Total 0.4 mg/dL (0.3-1.0); Blood Urea Nitrogen 18 mg/dL (6-20); Calcium 8.9 mg/dL (8.6-10.3); Carbon Dioxide 31 mEq/L (23-29); Chloride 101 mEq/L (98-107); Globulin 2.9 g/dL (2.4-3.5); Glucose 180 mg/dL (70-105); Osmolality,Calculated 290 (280-300); Potassium 3.9 mEq/L (3.5-5.1); Sodium 137 mEq/L (136-145); Total Protein 6.5 g/dL (6.4-8.9); eGFR For African Americans > 60 (> 60); eGFR For Non-African Americans 60 (> 60)
--- NOTE | 2018-06-01 13:29 | Internal Med Progress Note ---
Date of Encounter: 06/01/18 Time of Encounter: 13:31 - Assessment and plan (1) Foot ulcer Current Visit: Yes Status: Acute Assessment and plan: S/p debridement rt foot ulcer on 05/29/18. Pt on zosyn and vancomycin. Blood culture on 05/27 grew S epidermidis in 1 of 2 samples, resistent to Oxacillin. Repeat blood culture is negative. Suspect this could be a contaminate. Wound culture grew Morganella morganii and Enterococcus avium. - Enterococcus sensitivities are still pending. ID following, recommendations appreciated Qualifiers: Laterality: right Non-pressure ulcer stage: unspecified non-pressure ulcer stage Qualified Code(s): L97.519 - Non-pressure chronic ulcer of other part of right foot with unspecified severity (2) Hypertension Current Visit: No Status: Chronic Assessment and plan: Pt takes lisinopril at home. BP today is 116/71 Qualifiers: Hypertension type: essential hypertension Qualified Code(s): I10 - Essential (primary) hypertension (3) Hyperlipidemia Current Visit: No Status: Chronic Assessment and plan: Continue home medicine. Pt should stay on low fat, low cholesterol, low salt diet Qualifiers: Hyperlipidemia type: mixed hyperlipidemia Qualified Code(s): E78.2 - Mixed hyperlipidemia (4) Type 2 diabetes mellitus Current Visit: No Status: Chronic Assessment and plan: Diabetic diet. Sliding scale and HbA1c ordered HbA1c has improved since last year. Down to 7.6 from 10.2. Qualifiers: Diabetes mellitus jail insulin use: with medical terminologist use Diabetes mellitus complication status: with skin complications Diabetes mellitus complication detail: with foot ulcer Qualified Code(s): E11.621 - Type 2 diabetes mellitus with foot ulcer; L97.509 - Non-pressure chronic ulcer of other part of unspecified foot with unspecified severity; Z79.4 - [facility]f ( current) use of insulin (5) STEPHIE (obstructive sleep apnea) Current Visit: No Status: Chronic Assessment and plan: On CPAP (6) Congestive heart failure (CHF) Current Visit: Yes Status: Chronic Assessment and plan: Diastolic CHF. ECHO showed 55-60% EF. Aortic sclerosis. Atypical septal motion consistent with BBB. Last ECHO was 2016 showed EF 65-70%. Fluid restrict 1.5Lday. IV Lasix 40mg BID. Strict I&O's. Cardiac low fat low salt diet. Qualifiers: Heart failure type: unspecified Heart failure chronicity: unspecified Qualified Code(s): I50.9 - Heart failure, unspecified (7) DVT prophylaxis Current Visit: No Status: Acute Assessment and plan: SQ heparin. (8) Sepsis Current Visit: Yes Status: Acute Assessment and plan: 2 SIRS criteria on admission Secondary to OM of right foot from ulcer. Organisms sensitivities pending Sepsis resolved. Qualifiers: Sepsis type: sepsis due to unspecified organism Qualified Code(s): A41.9 - Sepsis, unspecified organism (9) Osteomyelitis Current Visit: Yes Status: Suspected Assessment and plan: Plan as above Qualifiers: Osteomyelitis type: acute hematogenous Osteomyelitis location: foot Laterality: right Qualified Code(s): M86.071 - Acute hematogenous osteomyelitis, right ankle and foot - Time Spent With Patient Total time spent is greater than 50% in coordination of care (as documented) at patient's floor/unit and/or counseling patient: - Subjective Interval history: No complaints, no acute events. Denies foot pain, fevers/chills, n/v. - Constitutional Vitals: Temp Pulse Resp BP Pulse Ox 97.6 F 84 16 131/69 95 06/01/18 10:29 06/01/18 10:29 06/01/18 10:29 06/01/18 10:29 06/01/18 10:29 General appearance: Present: cooperative, A&O X 3, morbidly obese, pleasant Exam: - Head Head exam: Present: atraumatic, normal inspection - Neck Neck exam general surgery: Present: supple - Cardiovascular Cardiovascular exam: Present: RRR, +S1, +S2 - GI/Abdominal GI/Abdominal exam: Present: normal bowel sounds, soft, no peritoneal signs. Absent: rebound, rigid - Neurological Exam Neurological exam: Present: no focal deficits - Psychiatric Psychiatric exam: Present: normal affect, normal mood - Skin Additional comments: b/l venous stasis changes Right foot in clean dressing, no bleeding or drainage at ulcer site. Internal Medicine: Result - Labs CBC & Chem 7: 06/01/18 07:07 06/01/18 07:07 Labs: Short CBC 06/01/18 Range/Units 07:07 WBC 7.5 (4.3-11.1) K/mcL Hgb 11.1 L (12.9-16.9) g/dL Hct 34.6 L (37.5-50.1) % Plt Count 282 (140-400) K/mcL Neutrophils # 5.9 (1.6-8.9) K/mcL BMP 06/01/18 07:07 Sodium 137 Potassium 3.9 Chloride 101 Carbon Dioxide 31 H BUN 18 Creatinine 1.26 Glucose 180 H Calcium 8.9 Liver Function 06/01/18 Range/Units 07:07 Total Bilirubin 0.4 (0.3-1.0) mg/dL AST 18 (13-39) Units/L ALT 23 (7-52) Units/L Alkaline Phosphatase 88 (34-104) Units/L Albumin 3.6 (3.5-5.7) g/dL - VTE Documentation of Mechanical Device: Venous foot pump, device Consult Discharge Plan - Plan Referrals: Radha Chavez DO [Primary Care Provider] -
[2018-06-02] MEDS: *HR* Heparin 5,000 UNIT/ML VIAL SQ SCH ×3 (03:41→21:20)
[2018-06-02] MEDS: Aspirin Enteric Coated 81 MG Tablet PO SCH (07:53)
[2018-06-02] MEDS: Nicotine 14 MG PATCH.TD24 TD SCH (07:53)
[2018-06-02] MEDS: Pantoprazole 40 MG VIAL IVP SCH (07:53)
[2018-06-02] MEDS: Piperacillin/Tazobactam 3.375 GM in 0.9 % Sodium Chloride Mini Bag 100 ML IVPB SCH ×2 (07:54→17:39)
[2018-06-02] MEDS: Insulin LISPRO 300 UNITS/3 ML VIAL SQ SCH ×4 (08:00→21:11)
[2018-06-02] MEDS: Furosemide 40 MG/4 ML VIAL IVP SCH ×2 (08:15→17:39)
[2018-06-02] MEDS: Insulin DETEMIR 100 UNIT/ML X5UNITS SQ SCH ×2 (08:16→21:20)
--- NOTE | 2018-06-02 09:22 | Internal Med Progress Note ---
Date of Encounter: 06/02/18 Time of Encounter: 08:30 - Assessment and plan (1) Foot ulcer Current Visit: Yes Status: Acute Assessment and plan: POD#4, s/p debridement rt foot ulcer on 05/29/18. Pt on zosyn and vancomycin day 5, abx as per ID. Blood culture on 05/27 grew S epidermidis in 1 of 2 samples, resistent to Oxacillin. Possible due to contamination as repeat is negative. Wound culture grew Morganella morganii and Enterococcus avium, sensitive to vanc and linzeolid, ampicillin, ciprofloxacin. Qualifiers: Laterality: right Non-pressure ulcer stage: unspecified non-pressure ulcer stage Qualified Code(s): L97.519 - Non-pressure chronic ulcer of other part of right foot with unspecified severity (2) Hypertension Current Visit: No Status: Chronic Assessment and plan: Pt takes lisinopril at home. BP today is 116/63 Qualifiers: Hypertension type: essential hypertension Qualified Code(s): I10 - Essential (primary) hypertension (3) Hyperlipidemia Current Visit: No Status: Chronic Assessment and plan: Continue home medicine. Pt should stay on low fat, low cholesterol, low salt diet Qualifiers: Hyperlipidemia type: mixed hyperlipidemia Qualified Code(s): E78.2 - Mixed hyperlipidemia (4) DVT prophylaxis Current Visit: No Status: Acute Assessment and plan: SQ heparin. (5) Type 2 diabetes mellitus Current Visit: No Status: Chronic Assessment and plan: Diabetic diet. Sliding scale and HbA1c ordered HbA1c has improved since last year. Down to 7.6 from 10.2. Qualifiers: Diabetes mellitus [facility] insulin use: with chcf use Diabetes mellitus complication status: with skin complications Diabetes mellitus complication detail: with foot ulcer Qualified Code(s): E11.621 - Type 2 diabetes mellitus with foot ulcer; L97.509 - Non-pressure chronic ulcer of other part of unspecified foot with unspecified severity; Z79.4 - [facility] ( current) use of insulin (6) STEPHIE (obstructive sleep apnea) Current Visit: No Status: Chronic Assessment and plan: On CPAP (7) Congestive heart failure (CHF) Current Visit: Yes Status: Chronic Assessment and plan: Diastolic CHF. ECHO showed 55-60% EF. Aortic sclerosis. Atypical septal motion consistent with BBB. Last ECHO was 2016 showed EF 65-70%. Fluid restrict 1.5Lday. Cardiac low fat low salt diet. Qualifiers: Heart failure type: unspecified Heart failure chronicity: unspecified Qualified Code(s): I50.9 - Heart failure, unspecified (8) Sepsis Current Visit: Yes Status: Resolved Assessment and plan: 2 SIRS criteria on admission - secondary to osteomyelitis of the foot Sepsis resolved. Morganella and enterococcus avium on wound cx growth - sensitive to vanc, linezolid, ampicillin, cipro. ID following for abx. Qualifiers: Sepsis type: sepsis due to unspecified organism Qualified Code(s): A41.9 - Sepsis, unspecified organism (9) Osteomyelitis Current Visit: Yes Status: Suspected Assessment and plan: CT showed probable osteomyelitis. ESR 66, CRP 84. On Vanc and Zosyn day 5 Qualifiers: Osteomyelitis type: acute hematogenous Osteomyelitis location: foot Laterality: right Qualified Code(s): M86.071 - Acute hematogenous osteomyelitis, right ankle and foot - Time Spent With Patient Total time spent is greater than 50% in coordination of care (as documented) at patient's floor/unit and/or counseling patient: - Subjective Interval history: pt seen at bedside. he was admitted from wound care due to right foot ulcer. Pt is POD#4 s/p debridement of rt 5th toe. He has no chest pain, SOB, n/v/d, numbness or tingling. He is not in any pain. He feels "full of fluid." He is ambulating with assistance and is tolerating food. CT showed possible osteomyelitis with cellulitis. severe irregular and erosive changes are seen at the 5th distal phalynx and along lateral aspect head of the 5th proximal phalnyx, there is soft tisse ulceration at the lateral 5th distal phalnx. there is diffuse sq edema and cellulitis on CT. ESR was 66, crp 84. ID is seeing pt and he is on zosyn/vancomycin day 5 - Constitutional Vitals: Temp Pulse Resp BP Pulse Ox 97.5 F L 88 20 116/63 93 06/02/18 05:32 06/02/18 05:32 06/02/18 05:32 06/02/18 05:32 06/02/18 05:32 General appearance: Present: cooperative, A&O X 3, morbidly obese, pleasant - Head Head exam: Present: atraumatic, normal inspection - Neck Neck exam general surgery: Present: supple - Respiratory Respiratory exam: Present: decreased breath sounds Additional comments: decreased breath sounds 2/2 body habitus - Cardiovascular Cardiovascular exam: Present: RRR, +S1, +S2 - GI/Abdominal GI/Abdominal exam: Present: normal bowel sounds, no peritoneal signs - Neurological Exam Neurological exam: Present: no focal deficits - Psychiatric Psychiatric exam: Present: normal mood - Skin Skin exam: Present: normal color Additional comments: B/L venous stasis changes. legs wrapped due to swelling. Internal Medicine: Result - Labs CBC & Chem 7: 06/01/18 07:07 06/01/18 07:07 - VTE Documentation of Mechanical Device: Graduated compression elastic hosiery Consult Discharge Plan - Plan Referrals: Radha Chavez DO [Primary Care Provider] -
--- NOTE | 2018-06-02 13:58 | Infectious Disease Progress No ---
Date of Encounter: 06/02/18 Time of Encounter: 13:56 - Assessment and Plan (1) Sepsis Current Visit: Yes Status: Inactive The patient had two SIRs criteria on admission. Likely secondary to osteomyelitis of the right foot. Resolved. WBC normalized. Tachycardia has resolved. Blood cultures drawn 05/27/18 are positive 1/2 sets for Staph species, but not Staph aureus. Additional blood cultures drawn 05/29/18 are NGTD x 2 sets. Qualifiers: Sepsis type: sepsis due to unspecified organism Qualified Code(s): A41.9 - Sepsis, unspecified organism (2) Bacteremia Current Visit: Yes Status: Resolved Causative organism S. epi. Blood cultures drawn 05/27/18 are positive 1/2 sets for Staph epi. Likely a contaminant. Repeat blood cultures x 2 sets drawn 05/29/18 are NGTD. No further treatment required, but will continue IV antibiotics for the right foot OM. (3) Osteomyelitis Current Visit: Yes Status: Acute Causative organism M. morgannii and Enterococcus avium. Location: Right distal and proximal 5th phalanx. Likely secondary to DFU. CT of the right foot showed findings suspicious for OM of the 5th distal and proximal phalanx and cellulitis. Podiatry consulted and following. Status post I & D below the fascia right foot 05/29/[address] Ramirez. Operative note reviewed. Findings consistent with OM of the proximal phalanx noted intra-op. Cultures as above. ESR 66 and CRP 84. Wound care and activity restrictions per the Podiatry team. I had a long discussion with the patient regarding potential antibiotic regimens. Based on the susceptibilities, we have two options: we can use Zosyn 4.5 grams IV Q8H which would cover both bacteria, or we could use Vanc plus cefepime which would be Q12H. I discussed the risks, benefits, and alternatives of each with the patient and he would like to proceed with the Zosyn. Discontinue Vancomycin. Continue Zosyn 3.375 grams IV Q8H. Duration of treatment depends on the clinical picture, but likely 6 weeks of IV antibiotics. Will switch the dose to 4.5 grams of Zosyn Q8H on discharge since we do not do 4 hour infusions in the home setting. Monitor renal function and for drug toxicity and dose-adjust antibiotics. learning support services director to assist with discharge planning. Consult VAT for midline placement. Will need weekly CBC, BUN/Cr, ESR, and CRP. Will need weekly midline care. Follow up with ID 06/17/18 at 0900. Qualifiers: Osteomyelitis type: acute hematogenous Osteomyelitis location: foot Laterality: right Qualified Code(s): M86.071 - Acute hematogenous osteomyelitis, right ankle and foot (4) Foot ulcer Current Visit: Yes Status: Acute Location: Right lateral foot. Secondary to poorly fitted shoes and LE edema. Wound care per the podiatry team. Qualifiers: Laterality: right Non-pressure ulcer stage: unspecified non-pressure ulcer stage Qualified Code(s): L97.519 - Non-pressure chronic ulcer of other part of right foot with unspecified severity (5) Venous stasis dermatitis Current Visit: No Status: Acute Recommendations per the Podiatry team and wound care team. Qualifiers: Laterality: bilateral Qualified Code(s): I87.2 - Venous insufficiency ( chronic) (peripheral) (6) STEPHIE (obstructive sleep apnea) Current Visit: No Status: Chronic (7) Congestive heart failure (CHF) Current Visit: Yes Status: Chronic Qualifiers: Heart failure type: unspecified Heart failure chronicity: unspecified Qualified Code(s): I50.9 - Heart failure, unspecified (8) Morbid obesity with BMI of 50.0-59.9, adult Current Visit: No Status: Chronic (9) Hypertension Current Visit: No Status: Chronic Qualifiers: Hypertension type: essential hypertension Qualified Code(s): I10 - Essential (primary) hypertension (10) Hyperlipidemia Current Visit: No Status: Chronic Qualifiers: Hyperlipidemia type: mixed hyperlipidemia Qualified Code(s): E78.2 - Mixed hyperlipidemia (11) Type 2 diabetes mellitus Current Visit: No Status: Chronic Uncontrolled. HgbA1C 7.6% Recommend aggressive glucose monitoring and control to promote wound healing and prevent re-infection. Management per the primary team. 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 No acute events noted overnight. Patient resting in bed. Denies fevers, chills, or rigors. Denies chest pain, shortness of breath, or cough. Denies nausea, vomiting, or diarrhea.Reports BM this morning. Denies abdominal pain, urinary complaints, or appetite changes. Denies oral thrush or skin lesions. Denies pain at the surgical site. Infect Dis PN-Objective Data - Labs CBC & Chem 7: 06/01/18 07:07 06/01/18 07:07 Labs: Laboratory Results - last 24 hr 06/01/18 06/01/18 06/01/18 11:36 16:12 17:51 ESR POC Glucose 249 H 236 H Vancomycin Trough 16 H 06/01/18 06/02/18 06/02/18 20:51 07:23 11:22 ESR POC Glucose 210 H 212 H 269 H Vancomycin Trough 06/02/18 12:11 ESR 52 H POC Glucose Vancomycin Trough Exam - Constitutional Vitals: Temp Pulse Resp BP Pulse Ox 97.6 F 78 18 151/81 95 06/02/18 11:20 06/02/18 11:20 06/02/18 11:20 06/02/18 11:20 06/02/18 11:20 General appearance: cooperative, morbidly obese, no acute distress - Head Head exam: Present: atraumatic, normal inspection, normocephalic - Eye Eye exam: Present: EOMI, normal appearance, PERRL Pupils: Present: normal accommodation - ENT ENT exam: Present: mucous membranes moist - Neck Neck exam: Present: normal inspection - Respiratory Respiratory exam: Present: CTAB. Absent: rales, respiratory distress, rhonchi, wheezes - Cardiovascular Cardiovascular exam: Present: RRR, +S1, +S2 - GI/Abdominal GI/Abdominal exam: Present: distended (obese), normal bowel sounds, soft. Absent: tenderness - Extremities Exam Extremities exam: Present: calf tenderness Additional comments: Right foot dressing C/D/I. Left LE compression dressing noted. - Neurological Exam Neurological exam: Present: alert, oriented X3, no focal deficits - Psychiatric Psychiatric exam: Present: normal affect, normal mood - Skin Skin exam: Present: dry, intact, normal color, warm - VTE Documentation of Mechanical Device: Graduated compression elastic hosiery Consult Discharge Plan - Plan Referrals: WoundCare,Clinic [Other] - 06/11/18 1:00 pm (Appointment will be with Dr. Ramirez. ) Obdulia Carrasco, BOMB LOADER [Advanced Practice Nurse] - 06/17/18 9:00 am Prescriptions: Jodsecaesspm-Sagc-Ncgyyotp,Iso [Zosyn 4.5 gm/100 ml Galaxy Bag] 4.5 gm IV Q8H # 126 froz.piggy Scooter [SCOOTER] 1 each .ROUTE AD #1 each - Attending Attestation I examined this patient and my medical decision-making was reviewed with the Resident Physician. I agree with the documented findings, disposition and treatment plan as described except to the extent set forth below.
--- NOTE | 2018-06-02 15:12 | Discharge Summary ---
<Boyd Loredo S - Last Filed: 06/02/18 16:03> - NOTES TO OUTPATIENT PROVIDER Notes to Outpatient Provider: Pt admitted from podiatry because of right foot 5th distal phalnyx ulcer. He is s/p debridement. Pt to be discharged on PICC line and Zosyn/Vanc for 6wks, f/u with ID 06/17 . Pt should follow up as outpatient for addition of Lisinopril for his HTN and CHF. Date of Encounter: 06/02/18 Time of Encounter: 15:09 - Discharge Diagnosis (1) Foot ulcer Priority: Primary Status: Acute Assessment and Plan: POD#4, s/p debridement rt foot ulcer on 05/29/18. Pt on zosyn and vancomycin day 5, abx as per ID. Blood culture on 05/27 grew S epidermidis in 1 of 2 samples, resistent to Oxacillin. Possible due to contamination as repeat is negative. Wound culture grew Morganella morganii and Enterococcus avium, sensitive to vanc and linzeolid, ampicillin, ciprofloxacin. Pt to go home with PICC line and home health. 6wks Vanc/Zosyn FU ID 06/17 Qualifiers: Laterality: right Non-pressure ulcer stage: unspecified non-pressure ulcer stage Qualified Code(s): L97.519 - Non-pressure chronic ulcer of other part of right foot with unspecified severity (2) Hypertension Priority: Secondary Status: Chronic Assessment and Plan: Pt takes lisinopril at home. BP today is 116/63 Qualifiers: Hypertension type: essential hypertension Qualified Code(s): I10 - Essential (primary) hypertension (3) Hyperlipidemia Priority: Secondary Status: Chronic Assessment and Plan: Continue home medicine. Pt should stay on low fat, low cholesterol, low salt diet Qualifiers: Hyperlipidemia type: mixed hyperlipidemia Qualified Code(s): E78.2 - Mixed hyperlipidemia (4) DVT prophylaxis Priority: Secondary Status: Acute Assessment and Plan: SQ heparin. (5) Type 2 diabetes mellitus Priority: Secondary Status: Chronic Assessment and Plan: Diabetic diet. Sliding scale and HbA1c ordered HbA1c has improved since last year. Down to 7.6 from 10.2. Qualifiers: Diabetes mellitus terminal supervisor insulin use: with terminal supervisor use Diabetes mellitus complication status: with skin complications Diabetes mellitus complication detail: with foot ulcer Qualified Code(s): E11.621 - Type 2 diabetes mellitus with foot ulcer; L97.509 - Non-pressure chronic ulcer of other part of unspecified foot with unspecified severity; Z79.4 - senior living ( current) use of insulin (6) STEPHIE (obstructive sleep apnea) Priority: Secondary Status: Chronic Assessment and Plan: On CPAP (7) Congestive heart failure (CHF) Priority: Secondary Status: Chronic Assessment and Plan: Diastolic CHF. ECHO showed 55-60% EF. Aortic sclerosis. Atypical septal motion consistent with BBB. Last ECHO was 2016 showed EF 65-70%. Fluid restrict 1.5Lday. Cardiac low fat low salt diet. Qualifiers: Heart failure type: unspecified Heart failure chronicity: unspecified Qualified Code(s): I50.9 - Heart failure, unspecified (8) Osteomyelitis Priority: Primary Status: Acute Assessment and Plan: CT showed probable osteomyelitis. ESR 66, CRP 84. On Vanc and Zosyn day 5 Will be discharged with PICC line for antibiotics 6wks Vanc/Zosyn FOllow up ID 06/17 Qualifiers: Osteomyelitis type: acute hematogenous Osteomyelitis location: foot Laterality: right Qualified Code(s): M86.071 - Acute hematogenous osteomyelitis, right ankle and foot Hospital course: Mr. Roman is a 53 year old male admitted by podiatry for rt foot ulcer on 5th distal phalnyx. Pt is s/p debridement of ulcer. he tolerated procedure well. His wound cx grew MOrganella and E. avium. He has PICC line placement and will be discharged on Zosyn as per ID. Recommend pt to follow up with PCP for addition of Lisinopril to medication regimen to protect kidneys Discharge discussed with: patient, family Time spent discussing smoking cessation with patient: 3 to 10 minutes - Time Spent with Patient Total time spent providing and/or coordinating discharge services: Less than 30 minutes - Discharge Medications Prescriptions: Tiwfqfnfhkmt-Zrmv-Zhvfzylg,Iso [Zosyn 4.5 gm/100 ml Galaxy Bag] 4.5 gm IV Q8H # 126 froz.piggy Home Medications: Insulin Glargine [Lantus] 75 unit SQ BID 01/19/16 [History] Aspirin Enteric Coated [Aspirin EC] 81 mg PO DAILY 05/01/17 [History] Atorvastatin [Lipitor] 40 mg PO HS 08/21/17 [History] Metformin HCl [Fortamet] 1,000 mg PO BID 08/21/17 [History] Furosemide [Lasix] 80 mg PO BID 05/27/18 [History] Insulin LISPRO [Humalog] 0 unit SQ TIDWM 05/27/18 [History] Wcyhnqewslzg-Cdgm-Fuwxopej,Iso [Zosyn 4.5 gm/100 ml Galaxy Bag] 4.5 gm IV Q8H # 126 froz.piggy 06/02/18 [Rx] Allergies/Adverse Reactions: 3 Allergy/AdvReac Type Severity Reaction Status Date / Time codeine AdvReac Mild Constipatio Verified 05/27/18 16:47 n Date of admission: 05/30/18 18:55 Primary care physician: Radha Chavez DO Consults: 06/02/18 12:02 Consult to Invasive Line Access Team [CONS] Routine Reason for Consult: midline Line Type: Midline - Constitutional Vitals: Temp Pulse Resp BP Pulse Ox 97.8 F 76 18 116/64 96 06/02/18 15:00 06/02/18 15:00 06/02/18 15:00 06/02/18 15:00 06/02/18 15:00 General appearance: Present: cooperative, A&O X 3, morbidly obese, pleasant - Neck Neck exam general surgery: Present: supple - Respiratory Respiratory exam: Present: decreased breath sounds - Cardiovascular Cardiovascular exam: Present: RRR, +S1, +S2 - GI/Abdominal GI/Abdominal exam: Present: normal bowel sounds, no peritoneal signs - Psychiatric Psychiatric exam: Present: normal mood - Skin Skin exam: Present: normal color (B/L venous stasis changes. legs wrapped because of edema. ) - Patient Status Disposition: Home Health Service Condition: Fair Functional capacity at discharge: uses cane/walker Overall status at discharge: patient is progressing back to baseline - Discharge Instructions Follow Up With: WoundCare,Clinic [Other] - 06/11/18 1:00 pm (Appointment will be with Dr. Ramirez. ) Obdulia Carrasco, FILM PRODUCER [Advanced Practice Nurse] - 06/17/18 9:00 am - Diet and Activity Activity: ambulate only with your walker Diet: diabetic diet, low fat, low cholesterol, low salt diet, other (fluid restrict 2L a day) - VTE Documentation of Mechanical Device: Graduated compression elastic hosiery <Ghanem,Alfredo Rheem - Last Filed: 06/02/18 18:01> Date of Encounter: 06/02/18 - Discharge Diagnosis (1) Hypertension Status: Chronic (2) Hyperlipidemia Status: Chronic (3) DVT prophylaxis Status: Acute (4) Type 2 diabetes mellitus Status: Chronic (5) STEPHIE (obstructive sleep apnea) Status: Chronic (6) Foot ulcer Status: Acute (7) Congestive heart failure (CHF) Status: Chronic (8) Osteomyelitis Status: Acute Qualifiers: Osteomyelitis type: acute hematogenous Osteomyelitis location: foot Laterality: right Qualified Code(s): M86.071 - Acute hematogenous osteomyelitis, right ankle and foot Hospital course: Mr. Roman is a 53 year old male - Time Spent with Patient Total time spent providing and/or coordinating discharge services: Date of admission: 05/30/18 18:55 Primary care physician: Radha Chavez DO Consults: 06/02/18 12:02 Consult to Invasive Line Access Team [CONS] Routine Reason for Consult: midline Line Type: Midline 06/02/18 15:12 Consult to Occupational Therapy [CONS] Stat Comment: Evaluate, develop and implement POC Reason for Consult: To check discharge needs Does patient have active BEDREST order?: No Is patient medically & hemodynamically stable?: Yes Consult to Physical Therapy [CONS] Stat Comment: Evaluate, develop and implement POC Reason for Consult: To check discharge needs Does patient have active BEDREST order?: No Is patient medically & hemodynamically stable?: Yes - Constitutional Vitals: Temp Pulse Resp BP Pulse Ox 97.8 F 76 18 116/64 96 06/02/18 15:00 06/02/18 15:00 06/02/18 15:00 06/02/18 15:00 06/02/18 15:00 - Attending Attestation I examined this patient and my medical decision-making was reviewed with the Resident Physician. I agree with the documented findings, disposition and treatment plan as described except to the extent set forth below. Addendum entered and electronically signed by Boyd Loredo 06/02/18 16:26: Note: pt is discharged on Zosyn. Not Vanc and Zosyn. Zosyn for 6wks and fu with ID 06/17
--- NOTE | 2018-06-02 15:47 | Physician Discharge Referral ---
Home Health/Hosp Referral Info Transfer to: Home Health Attending Provider: Dr. Bland Provider in Charge Post Discharge: PCP - Diagnosis (1) Osteomyelitis Priority: Primary Status: Acute (2) Foot ulcer Priority: Primary Status: Acute (3) Hypertension Priority: Secondary Status: Chronic (4) Hyperlipidemia Priority: Secondary Status: Chronic (5) DVT prophylaxis Priority: Secondary Status: Acute (6) Type 2 diabetes mellitus Priority: Secondary Status: Chronic (7) STEPHIE (obstructive sleep apnea) Priority: Secondary Status: Chronic (8) Congestive heart failure (CHF) Priority: Secondary Status: Chronic (9) Sepsis Priority: Primary Status: Resolved - Respiratory Orders Smoking Cessation: Smoking cessation has been advised. For more information, call the [place] Tobacco Quit Line at 2-796-WTWW-NOW. - Diet/Nutrition Diet/Nutrition Orders: No Added Salt (NEGIN), Cardiac - Activity Activity Orders: Walker - Services Needed Following services are medically necessary services: Home Health Aide - Transfer Medications Prescriptions: Kzhmmhjuapbi-Xojx-Xtkrvtkw,Iso [Zosyn 4.5 gm/100 ml Galaxy Bag] 4.5 gm IV Q8H # 126 froz.piggy Home Medications: Insulin Glargine [Lantus] 75 unit SQ BID 01/19/16 [History] Aspirin Enteric Coated [Aspirin EC] 81 mg PO DAILY 05/01/17 [History] Atorvastatin [Lipitor] 40 mg PO HS 08/21/17 [History] Metformin HCl [Fortamet] 1,000 mg PO BID 08/21/17 [History] Furosemide [Lasix] 80 mg PO BID 05/27/18 [History] Insulin LISPRO [Humalog] 0 unit SQ TIDWM 05/27/18 [History] Ccfasmacaoxy-Asmy-Gvybexxb,Iso [Zosyn 4.5 gm/100 ml Galaxy Bag] 4.5 gm IV Q8H # 126 froz.piggy 06/02/18 [Rx] Allergies/Adverse Reactions: 3 Allergy/AdvReac Type Severity Reaction Status Date / Time codeine AdvReac Mild Constipatio Verified 05/27/18 16:47 n Certification: Further, I certify that my clinical findings support that this patient is homebound (i.e. absences from home require considerable and taxing effort and are for medical reasons or orthodox services or infrequently or short duration when for other reasons) because: Homebound Reason: Patient requires assistance of a person or device to safely leave home Attestation: My signature below is to certify that this patient is under my care and that I, or nurse practitioner, or a physician's critical care physician assistant working with me, has a face-to -face encounter with this patient.
--- NOTE | 2018-06-02 17:10 | Podiatry Progress Note ---
Date of Encounter: 06/03/18 Time of Encounter: 15:45 - Assessment and Plan (1) Nonhealing surgical wound Current Visit: No Status: Acute S/p #1 incision and drainage below fascia , right foot #2 application of PuraPly organic wound matrix graft Microbiology 05/29/18 15:57 Right Foot Wound Culture - Final Morganella morganii Enterococcus avium 05/27/18 18:25 Peripheral Venipuncture Blood Culture - Final No growth. Final report. 05/27/18 18:25 Peripheral Venipuncture Blood Culture - Final Staphylococcus epidermidis Plan: Will leave dressing intact until discharge Will need wound vac once discharged to ECF/home. Wound vac paperwork completed. Apply Allkare skin barrier prep to surrounding skin of ulcer right lateral foot, 5th metatarsal head, appy adaptic to base of wound, apply small black simplace wound vac sponge, connect to intermittent suction, rise 2 minutes, fall 10 minutes. Change every 72 hours. If dressing becomes saturated or soiled will need to be changed Will need followed in wound care center with 1 week after discharge NWB to right foot Will need post operative shoe to bedside. Antibiotics per Infectious Disease. Qualifiers: Encounter type: subsequent encounter Qualified Code(s): T81.89XD - Other complications of procedures, not elsewhere classified, subsequent encounter Subjective Interval history: Patient is s/p #1 incision and drainage below fascia , right foot #2 application of PuraPly organic wound matrix graft by Dr. Ramirez on 05/29/18. Patient is sitting up in bed with dressing dry and intact to the right foot. No c/o pain. Patient states he is hoping to go home today. No c/o fever, chills, n/ v, calf pain or flu like symptoms. Objective - Vital Signs Vital Signs: Vital Signs Temp Pulse Resp BP Pulse Ox 06/02/18 15:00 97.8 F 76 18 116/64 96 06/02/18 11:20 97.6 F 78 18 151/81 95 06/02/18 05:32 97.5 F L 88 20 116/63 93 06/02/18 03:48 17 94 06/01/18 20:02 93 06/01/18 19:36 98.2 F 83 16 138/70 93 Intake and Output 06/02/18 06/02/18 06/02/18 07:59 15:59 23:59 Intake Total 900 / 900 600 / 600 240 / 240 Output Total 1075 / 1075 300 / 300 300 / 300 Balance -175 / -175 300 / 300 -60 / -60 Intake: IV Fluids 100 / 100 Zosyn 3.375 GM In 0.9 % Sodium 100 / 100 Chloride (Mini-Bag +) 100 ML @ 25 mls/hr IVPB Q8HR EULALIA Rx#: [id number] Oral 800 / 800 600 / 600 240 / 240 Output: Urine 1075 / 1075 300 / 300 300 / 300 Other: Meal Lunch Percent of Meal Consumed 100% # Bowel Movements 0 0 0 Weight 169.3 kg Blood Glucose* 212 269 236 Patient Weight 06/02/18 23:59 Weight 169.3 kg - Exam Exam: General appearance: alert awake oriented X 3. Calm and pleasant, no acute distress.. Vascular: Pedal pulses +1/4 DP/PT , No evidence of cyanosis, pallor or rubor, Edema graded at 1+/4, Skin Temperature warm, No calf pain with manual compression. capillary refill time is immediate to digits. Neurologic: Sensation intact with light touch to foot. . Postop Exam: S/P Sutures intact to incision line, no signs of dehiscence. Surgical wound to the lateral aspect of the 5th metatarsal head right foot measuring 2 cm in length x 2.3 cm in width x 0.3 cm in depth base of wound red with yellow fibrous tissue. - Lab Result Diagrams: 06/01/18 07:07 06/01/18 07:07 Labs: Abnormal lab results RBC 3.93 M/mcL (4.19-5.50) L 06/01/18 07:07 Hgb 11.1 g/dL (12.9-16.9) L 06/01/18 07:07 Hct 34.6 % (37.5-50.1) L 06/01/18 07:07 ESR 52 mm/hr (0-10) H 06/02/18 12:11 Carbon Dioxide 31 mEq/L (23-29) H 06/01/18 07:07 Glucose 180 mg/dL (70-105) H 06/01/18 07:07 POC Glucose 236 mg/dL (70-99) H 06/02/18 16:20 Hemoglobin A1c 7.6 % (-5.6) H 05/28/18 01:39 C-Reactive Protein 53 mg/L (Less than 10) H 06/02/18 12:11 Vancomycin Trough 16 mcg/mL (5-10) H 06/01/18 17:51 Staphylococcus sp PCR DETECTED (Not Detect) A 05/27/18 18:25 mecA-Methicil Res Gene DETECTED (Not Detect) A 05/27/18 18:25 - VTE Documentation of Mechanical Device: Graduated compression elastic hosiery Consult Discharge Plan - Plan Referrals: WoundCare,Clinic [Other] - 06/11/18 1:00 pm (Appointment will be with Dr. Ramirez. ) Obdulia Carrasco, MATTRESS STRIPPER [Advanced Practice Nurse] - 06/17/18 9:00 am Prescriptions: Oyqevwamjgsb-Mpdp-Daezlwyp,Iso [Zosyn 4.5 gm/100 ml Galaxy Bag] 4.5 gm IV Q8H # 126 gt
[2018-06-02] MEDS ORDERED: Aminoglycoside Consult 1 EACH MC ONE (18:57)
[2018-06-03] MEDS: Piperacillin/Tazobactam 3.375 GM in 0.9 % Sodium Chloride Mini Bag 100 ML IVPB SCH ×3 (02:24→16:58)
[2018-06-03] MEDS: *HR* Heparin 5,000 UNIT/ML VIAL SQ SCH ×2 (05:31→11:34)
[2018-06-03] MEDS: Aspirin Enteric Coated 81 MG Tablet PO SCH (08:36)
[2018-06-03] MEDS: Furosemide 40 MG/4 ML VIAL IVP SCH ×2 (08:36→17:00)
[2018-06-03] MEDS: Pantoprazole 40 MG VIAL IVP SCH (08:36)
[2018-06-03] MEDS: Nicotine 14 MG PATCH.TD24 TD SCH (08:37)
[2018-06-03] MEDS: Insulin DETEMIR 100 UNIT/ML X5UNITS SQ SCH (08:56)
[2018-06-03] MEDS: Insulin LISPRO 300 UNITS/3 ML VIAL SQ SCH ×3 (08:56→17:00)
--- NOTE | 2018-06-03 09:54 | Internal Med Progress Note ---
<Boyd Loredo S - Last Filed: 06/03/18 13:29> Date of Encounter: 06/03/18 Time of Encounter: 09:30 - Assessment and plan (1) Foot ulcer Status: Acute Assessment and plan: POD#5 s/p debridement rt foot ulcer on 05/29/18. Pt on zosyn day 6, vanc discontinued, abx as per ID. Blood culture on 05/27 grew S epidermidis in 1 of 2 samples, resistent to Oxacillin. Possible due to contamination as repeat is negative. Wound culture grew Morganella morganii and Enterococcus avium, sensitive to vanc and linzeolid, ampicillin, ciprofloxacin. PICC line in place and waiting for approval of home health. 6wks Zosyn. FU ID 06/17 Qualifiers: Laterality: right Non-pressure ulcer stage: unspecified non-pressure ulcer stage Qualified Code(s): L97.519 - Non-pressure chronic ulcer of other part of right foot with unspecified severity (2) Hypertension Status: Chronic Assessment and plan: Pt takes lisinopril at home. BP today is 120/67. Counsled pt on low salt diet. Recommend follow up with PCP for HTN. Qualifiers: Hypertension type: essential hypertension Qualified Code(s): I10 - Essential (primary) hypertension (3) Hyperlipidemia Status: Chronic Assessment and plan: Continue home medicine. Pt should stay on low fat, low cholesterol, low salt diet Qualifiers: Hyperlipidemia type: mixed hyperlipidemia Qualified Code(s): E78.2 - Mixed hyperlipidemia (4) DVT prophylaxis Status: Acute Assessment and plan: SQ heparin. (5) Type 2 diabetes mellitus Status: Chronic Assessment and plan: Diabetic diet. Sliding scale and HbA1c ordered HbA1c has improved since last year. Down to 7.6 from 10.2. Qualifiers: Diabetes mellitus termite renewal inspector insulin use: with care home use Diabetes mellitus complication status: with skin complications Diabetes mellitus complication detail: with foot ulcer Qualified Code(s): E11.621 - Type 2 diabetes mellitus with foot ulcer; L97.509 - Non-pressure chronic ulcer of other part of unspecified foot with unspecified severity; Z79.4 - emt intermediate ( current) use of insulin (6) STEPHIE (obstructive sleep apnea) Status: Chronic Assessment and plan: On CPAP (7) Congestive heart failure (CHF) Status: Chronic Assessment and plan: Diastolic CHF. ECHO showed 55-60% EF. Aortic sclerosis. Atypical septal motion consistent with BBB. Last ECHO was 2016 showed EF 65-70%. Fluid restrict 1.5Lday. Cardiac low fat low salt diet. Follow up with PCP for CHF and HTN. Qualifiers: Heart failure type: unspecified Heart failure chronicity: unspecified Qualified Code(s): I50.9 - Heart failure, unspecified (8) Osteomyelitis Status: Acute Assessment and plan: CT showed probable osteomyelitis. ESR 66, CRP 53. Vanc discontinued. Zosyn day 6. Will be discharged with PICC line for antibiotics 6wks Zosyn FOllow up ID 06/17 Qualifiers: Osteomyelitis type: acute hematogenous Osteomyelitis location: foot Laterality: right Qualified Code(s): M86.071 - Acute hematogenous osteomyelitis, right ankle and foot - Time Spent With Patient Total time spent is greater than 50% in coordination of care (as documented) at patient's floor/unit and/or counseling patient: - Subjective Interval history: Patient is seen at bedside. He was admitted from wound care due to right foot ulcer. Pt is POD#5 s/p debridement of rt 5th toe. He has no chest pain, SOB, n/v /d, numbness or tingling. He is not in any pain. He is ambulating with assistance and is tolerating food. ID is seeing pt - Zosyn day 6 Pt to be condintionally discharged from hospital today as long as wound care comes to see him for wound vac placement. Pt also requesting scooter, although states insurance will not cover it. - Constitutional Vitals: Temp Pulse Resp BP Pulse Ox 97.5 F L 84 15 120/67 95 06/03/18 07:31 06/03/18 07:31 06/03/18 07:31 06/03/18 07:31 06/03/18 07:31 General appearance: Present: cooperative, A&O X 3, morbidly obese, pleasant Internal Medicine: Result - Labs CBC & Chem 7: 06/01/18 07:07 06/01/18 07:07 - VTE Documentation of Mechanical Device: Graduated compression elastic hosiery Consult Discharge Plan - Plan Referrals: WoundCare,Clinic [Other] - 06/11/18 1:00 pm (Appointment will be with Dr. Ramirez. ) Obdulia Carrasco, PIPE LINE GAUGER [Advanced Practice Nurse] - 06/17/18 9:00 am Prescriptions: Hpgstbjymegw-Hlxi-Bdpxgaom,Iso [Zosyn 4.5 gm/100 ml Galaxy Bag] 4.5 gm IV Q8H # 126 froz.piggy Scooter [SCOOTER] 1 each .ROUTE AD #1 each <Manjinder Bland - Last Filed: 06/04/18 00:20> Date of Encounter: 06/04/18 - Assessment and plan (1) Hypertension Status: Chronic (2) Hyperlipidemia Status: Chronic (3) DVT prophylaxis Status: Acute (4) Type 2 diabetes mellitus Status: Chronic (5) STEPHIE (obstructive sleep apnea) Status: Chronic (6) Foot ulcer Status: Acute (7) Congestive heart failure (CHF) Status: Chronic (8) Osteomyelitis Status: Acute Qualifiers: Osteomyelitis type: acute hematogenous Osteomyelitis location: foot Laterality: right Qualified Code(s): M86.071 - Acute hematogenous osteomyelitis, right ankle and foot - Time Spent With Patient Total time spent is greater than 50% in coordination of care (as documented) at patient's floor/unit and/or counseling patient: - Constitutional Vitals: Temp Pulse Resp BP Pulse Ox 98.1 F 83 16 121/75 93 06/03/18 15:15 06/03/18 16:57 06/03/18 15:15 06/03/18 16:57 06/03/18 15:15 Internal Medicine: Result - Labs CBC & Chem 7: 06/01/18 07:07 06/01/18 07:07 - Attending Attestation I examined this patient and my medical decision-making was reviewed with the Resident Physician. I agree with the documented findings, disposition and treatment plan as described except to the extent set forth below.
--- NOTE | 2018-06-03 14:25 | Infectious Disease Progress No ---
Date of Encounter: 06/03/18 Time of Encounter: 14:23 - Assessment and Plan (1) Sepsis Current Visit: Yes Status: Inactive The patient had two SIRs criteria on admission. Likely secondary to osteomyelitis of the right foot. Resolved. WBC normalized. Tachycardia has resolved. Blood cultures drawn 05/27/18 are positive 1/2 sets for Staph species, but not Staph aureus. Additional blood cultures drawn 05/29/18 are negative x 2 sets. Qualifiers: Sepsis type: sepsis due to unspecified organism Qualified Code(s): A41.9 - Sepsis, unspecified organism (2) Bacteremia Current Visit: Yes Status: Resolved Causative organism S. epi. Blood cultures drawn 05/27/18 are positive 1/2 sets for Staph epi. Likely a contaminant. Repeat blood cultures x 2 sets drawn 05/29/18 are NGTD. No further treatment required, but will continue IV antibiotics for the right foot OM. (3) Osteomyelitis Current Visit: Yes Status: Acute Causative organism M. morgannii and Enterococcus avium. Location: Right distal and proximal 5th phalanx. Likely secondary to DFU. CT of the right foot showed findings suspicious for OM of the 5th distal and proximal phalanx and cellulitis. Podiatry consulted and following. Status post I & D below the fascia right foot 05/29/[address] Ramirez. Operative note reviewed. Findings consistent with OM of the proximal phalanx noted intra-op. Cultures as above. ESR 66 and CRP 84. Wound care and activity restrictions per the Podiatry team. I had a long discussion with the patient regarding potential antibiotic regimens. Based on the susceptibilities, we have two options: we can use Zosyn 4.5 grams IV Q8H which would cover both bacteria, or we could use Vanc plus cefepime which would be Q12H. I discussed the risks, benefits, and alternatives of each with the patient and he would like to proceed with the Zosyn. Continue Zosyn 3.375 grams IV Q8H. Duration of treatment depends on the clinical picture, but likely 6 weeks of IV antibiotics. Will switch the dose to 4.5 grams of Zosyn Q8H on discharge since we do not do 4 hour infusions in the home setting. Monitor renal function and for drug toxicity and dose-adjust antibiotics. banking services advisor to assist with discharge planning. Will need weekly CBC, BUN/Cr, ESR, and CRP. Will need weekly midline care. Follow up with ID 06/17/18 at 0900. Qualifiers: Osteomyelitis type: acute hematogenous Osteomyelitis location: foot Laterality: right Qualified Code(s): M86.071 - Acute hematogenous osteomyelitis, right ankle and foot (4) Foot ulcer Current Visit: Yes Status: Acute Location: Right lateral foot. Secondary to poorly fitted shoes and LE edema. Wound care per the podiatry team. Qualifiers: Laterality: right Non-pressure ulcer stage: unspecified non-pressure ulcer stage Qualified Code(s): L97.519 - Non-pressure chronic ulcer of other part of right foot with unspecified severity (5) Venous stasis dermatitis Current Visit: No Status: Acute Recommendations per the Podiatry team and wound care team. Qualifiers: Laterality: bilateral Qualified Code(s): I87.2 - Venous insufficiency ( chronic) (peripheral) (6) STEPHIE (obstructive sleep apnea) Current Visit: No Status: Chronic (7) Congestive heart failure (CHF) Current Visit: Yes Status: Chronic Qualifiers: Heart failure type: unspecified Heart failure chronicity: unspecified Qualified Code(s): I50.9 - Heart failure, unspecified (8) Morbid obesity with BMI of 50.0-59.9, adult Current Visit: No Status: Chronic (9) Hypertension Current Visit: No Status: Chronic Qualifiers: Hypertension type: essential hypertension Qualified Code(s): I10 - Essential (primary) hypertension (10) Hyperlipidemia Current Visit: No Status: Chronic Qualifiers: Hyperlipidemia type: mixed hyperlipidemia Qualified Code(s): E78.2 - Mixed hyperlipidemia (11) Type 2 diabetes mellitus Current Visit: No Status: Chronic Uncontrolled. HgbA1C 7.6% Recommend aggressive glucose monitoring and control to promote wound healing and prevent re-infection. Management per the primary team. Qualifiers: Diabetes mellitus senior care insulin use: with termite control service representative use Diabetes mellitus complication status: with skin complications Diabetes mellitus complication detail: with foot ulcer Qualified Code(s): E11.621 - Type 2 diabetes mellitus with foot ulcer; L97.509 - Non-pressure chronic ulcer of other part of unspecified foot with unspecified severity; Z79.4 - halfway ( current) use of insulin - Subjective Interval history: Patient seen and examined. No acute events noted overnight. Patient resting in bed. Denies fevers, chills, or rigors. Denies chest pain, shortness of breath, or cough. Denies nausea, vomiting, or diarrhea.Reports BM this morning. Denies abdominal pain, urinary complaints, or appetite changes. Denies oral thrush or skin lesions. Denies pain at the surgical site. Awaiting approval for home health services. Infect Dis PN-Objective Data - Labs CBC & Chem 7: 06/01/18 07:07 06/01/18 07:07 Labs: Laboratory Results - last 24 hr 06/02/18 06/02/18 06/02/18 12:11 16:20 20:29 POC Glucose 236 H 326 H C-Reactive Protein 53 H 06/03/18 06/03/18 07:34 11:07 POC Glucose 241 H 345 H C-Reactive Protein Exam - Constitutional Vitals: Temp Pulse Resp BP Pulse Ox 97.6 F 82 15 105/68 94 06/03/18 11:14 06/03/18 11:14 06/03/18 11:14 06/03/18 11:14 06/03/18 11:14 General appearance: cooperative, morbidly obese, no acute distress - Head Head exam: Present: atraumatic, normal inspection, normocephalic - Eye Eye exam: Present: EOMI, normal appearance, PERRL Pupils: Present: normal accommodation - ENT ENT exam: Present: mucous membranes moist - Neck Neck exam: Present: normal inspection - Respiratory Respiratory exam: Present: CTAB. Absent: rales, respiratory distress, rhonchi, wheezes - Cardiovascular Cardiovascular exam: Present: RRR, +S1, +S2 - GI/Abdominal GI/Abdominal exam: Present: distended (obese), normal bowel sounds, soft. Absent: tenderness - Extremities Exam Extremities exam: Absent: joint swelling, pedal edema, tenderness Additional comments: Right foot/ankle dressing C/D/I. Left LE compression dressing. - Neurological Exam Neurological exam: Present: alert, oriented X3, no focal deficits - Psychiatric Psychiatric exam: Present: normal affect, normal mood - Skin Skin exam: Present: dry, intact, normal color, warm - VTE Documentation of Mechanical Device: Graduated compression elastic hosiery Consult Discharge Plan - Plan Referrals: WoundCare,Clinic [Other] - 06/11/18 1:00 pm (Appointment will be with Dr. Ramirez. ) Obdulia Carrasco, HOME MORTGAGE DISCLOSURE ACT SPECIALIST [Advanced Practice Nurse] - 06/17/18 9:00 am Prescriptions: Uqbzrirhvroj-Djwe-Nhtxwrjm,Iso [Zosyn 4.5 gm/100 ml Galaxy Bag] 4.5 gm IV Q8H # 126 froz.piggy Scooter [SCOOTER] 1 each .ROUTE AD #1 each - Attending Attestation I examined this patient and my medical decision-making was reviewed with the Resident Physician. I agree with the documented findings, disposition and treatment plan as described except to the extent set forth below.
[2018-06-03 16:58] VITALS: BP 121/75
== END 2018-06-03 18:58 | disposition home health service (06) | DRG 854 ==
LOC: EMEROO 16:25 → 3ANU 16:25
PROVIDERS: ADMIT Student in an Organized Health Care Education/Training Program; ATTEND Student in an Organized Health Care Education/Training Program

== ENCOUNTER 2021-01-14 15:49 | Inpatient (IN) ==
[2021-01-14] MEDS ORDERED: Vancomycin 2,000 MG/520 ML IV.SOLN IVPB ONE (17:00)
[2021-01-14 17:24] LABS: Basophils % 0.4 %; Eosinophils # 0.1 K/mcL (0.0-0.6); Eosinophils % 1.2 %; Hematocrit 44.4 % (37.5-50.1); Hemoglobin 13.9 g/dL (12.9-16.9); Immature Granulocytes % 1.1 % (0-4); Lymphocytes # 0.6 K/mcL (0.6-4.6); Lymphocytes % 6.2 %; Mean Corpuscular HGB Conc 31.3 g/dL (31.6-35.5); Mean Corpuscular Hemoglobin 27.7 pg (28.0-33.3); Mean Corpuscular Volume 88.6 fL (83.0-100.0); Mean Platelet Volume 10.5 fL (9.4-12.4); Monocytes # 0.8 K/mcL (0.0-1.3); Monocytes % 8.9 %; Neutrophils # 7.5 K/mcL (1.6-8.9); Platelet Count 257 K/mcL (140-400); Red Blood Count 5.01 M/mcL (4.19-5.50); Red Cell Distribution Width 14.6 % (11.5-14.5); Segmented Neutrophils % 82.2 %; White Blood Count 9.1 K/mcL (4.3-11.1)
[2021-01-14 17:31] LABS: INR 1.2; Prothrombin Time 13.5 Seconds (9.4-12.1)
[2021-01-14 17:44] LABS: Activated Partial Thrombo Time 30.7 Seconds (26.0-36.0)
[2021-01-14 17:46] LABS: Alanine Aminotransferase 30 Units/L (7-52); Albumin 3.8 g/dL (3.5-5.7); Albumin/Globulin Ratio 1.2 (1.1-2.2); Alkaline Phosphatase 130 Units/L (34-104); Aspartate Amino Transferase 26 Units/L (13-39); BUN/Creatinine Ratio 21 (6-26); Bilirubin,Direct 0.1 mg/dL (0.0-0.2); Bilirubin,Indirect 0.4 mg/dL (0.0-1.0); Bilirubin,Total 0.5 mg/dL (0.3-1.0); Blood Urea Nitrogen 22 mg/dL (6-20); Calcium 9.3 mg/dL (8.6-10.3); Carbon Dioxide 29 mEq/L (23-29); Chloride 93 mEq/L (98-107); Globulin 3.2 g/dL (2.4-3.5); Glucose 308 mg/dL (70-105); Osmolality,Calculated 285 (280-300); Potassium 4.3 mEq/L (3.5-5.1); Sodium 130 mEq/L (136-145); Troponin I 0.03 ng/mL (< 0.04); eGFR For African Americans > 60 (> 60); eGFR For Non-African Americans > 60 (> 60)
[2021-01-14] MEDS ORDERED: Acetaminophen 325 MG TABLET PO PRN (20:20)
[2021-01-14] MEDS ORDERED: Ondansetron 4 MG/2 ML VIAL IVP PRN (20:20)
[2021-01-14] MEDS ORDERED: Naloxone 0.4 MG/ML INJ IVP PRN (20:20)
[2021-01-14] MEDS ORDERED: *HR* Dextrose 50 % in Water (Vial) 50 ML VIAL IVP PRN (20:26)
[2021-01-14] MEDS ORDERED: D5% in Water 1,000 ML IVC PRN (20:26)
[2021-01-14] MEDS ORDERED: Dextrose Gel 15 GM/37.5 ML TUBE PO PRN ×2 (20:26)
[2021-01-15 01:37] LABS: Basophils % 0.4 %; Eosinophils # 0.1 K/mcL (0.0-0.6); Eosinophils % 1.4 %; Hematocrit 41.9 % (37.5-50.1); Hemoglobin 12.9 g/dL (12.9-16.9); Lymphocytes # 0.5 K/mcL (0.6-4.6); Lymphocytes % 5.2 %; Mean Corpuscular HGB Conc 30.8 g/dL (31.6-35.5); Mean Corpuscular Hemoglobin 26.9 pg (28.0-33.3); Mean Corpuscular Volume 87.5 fL (83.0-100.0); Mean Platelet Volume 10.7 fL (9.4-12.4); Monocytes # 0.7 K/mcL (0.0-1.3); Monocytes % 7.3 %; Platelet Count 234 K/mcL (140-400); Red Blood Count 4.79 M/mcL (4.19-5.50); Red Cell Distribution Width 14.6 % (11.5-14.5); Segmented Neutrophils % 84.7 %; White Blood Count 9.4 K/mcL (4.3-11.1)
[2021-01-15] MEDS: Piperacillin/Tazobactam 3.375 GM in 0.9 % Sodium Chloride Mini Bag 100 ML IVPB SCH ×3 (01:43→15:49)
[2021-01-15 01:56] LABS: Alanine Aminotransferase 26 Units/L (7-52); Albumin 3.7 g/dL (3.5-5.7); Albumin/Globulin Ratio 1.3 (1.1-2.2); Alkaline Phosphatase 121 Units/L (34-104); Aspartate Amino Transferase 24 Units/L (13-39); BUN/Creatinine Ratio 20 (6-26); Bilirubin,Total 0.6 mg/dL (0.3-1.0); Blood Urea Nitrogen 21 mg/dL (6-20); Calcium 8.8 mg/dL (8.6-10.3); Carbon Dioxide 30 mEq/L (23-29); Chloride 95 mEq/L (98-107); Globulin 2.9 g/dL (2.4-3.5); Glucose 448 mg/dL (70-105); Osmolality,Calculated 294 (280-300); Phosphorous 3.8 mg/dL (2.7-4.5); Potassium 4.7 mEq/L (3.5-5.1); Sodium 131 mEq/L (136-145); Total Protein 6.6 g/dL (6.4-8.9); eGFR For African Americans > 60 (> 60); eGFR For Non-African Americans > 60 (> 60)
[2021-01-15 03:48] LABS: C-Reactive Protein 92 mg/L (Less than 10)
[2021-01-15] MEDS: Insulin LISPRO 300 UNITS/3 ML VIAL SUBQ SCH ×4 (05:51→18:11)
[2021-01-15] MEDS: Vancomycin 1,750 MG/517.5 ML IV.SOLN IVPB SCH ×2 (05:52→17:34)
[2021-01-15] MEDS ORDERED: Insulin DETEMIR 100 UNIT/ML X5UNITS SUBQ SCH (09:00)
[2021-01-15] MEDS: Acetaminophen 325 MG TABLET PO PRN (15:49)
[2021-01-15] MEDS: Insulin DETEMIR 100 UNIT/ML X5UNITS SUBQ SCH (21:15)
[2021-01-16] MEDS: Insulin LISPRO 300 UNITS/3 ML VIAL SUBQ SCH ×3 (00:36→12:25)
[2021-01-16] MEDS: Piperacillin/Tazobactam 3.375 GM in 0.9 % Sodium Chloride Mini Bag 100 ML IVPB SCH ×3 (00:41→16:08)
[2021-01-16 04:05] LABS: Basophils # 0.1 K/mcL (0.0-0.2); Basophils % 0.7 %; Eosinophils # 0.2 K/mcL (0.0-0.6); Hematocrit 40.5 % (37.5-50.1); Hemoglobin 12.5 g/dL (12.9-16.9); Immature Granulocytes % 1.5 % (0-4); Lymphocytes # 0.5 K/mcL (0.6-4.6); Lymphocytes % 6.2 %; Mean Corpuscular HGB Conc 30.9 g/dL (31.6-35.5); Mean Corpuscular Hemoglobin 27.2 pg (28.0-33.3); Mean Platelet Volume 10.8 fL (9.4-12.4); Monocytes # 0.8 K/mcL (0.0-1.3); Monocytes % 10.6 %; Neutrophils # 5.9 K/mcL (1.6-8.9); Platelet Count 241 K/mcL (140-400); Red Cell Distribution Width 14.9 % (11.5-14.5); White Blood Count 7.6 K/mcL (4.3-11.1)
[2021-01-16 04:14] LABS: INR 1.2; Prothrombin Time 13.9 Seconds (9.4-12.1)
[2021-01-16 04:25] LABS: BUN/Creatinine Ratio 21 (6-26); Blood Urea Nitrogen 26 mg/dL (6-20); Calcium 8.8 mg/dL (8.6-10.3); Carbon Dioxide 27 mEq/L (23-29); Chloride 97 mEq/L (98-107); Glucose 384 mg/dL (70-105); Magnesium 2.3 mg/dL (1.6-2.6); Osmolality,Calculated 291 (280-300); Sodium 130 mEq/L (136-145); eGFR For African Americans > 60 (> 60); eGFR For Non-African Americans 60 (> 60)
[2021-01-16] MEDS: Vancomycin 1,750 MG/517.5 ML IV.SOLN IVPB SCH ×2 (05:06→17:30)
[2021-01-16] MEDS ORDERED: Aspirin Enteric Coated 81 MG Tablet PO SCH (09:00)
[2021-01-16] MEDS: Insulin DETEMIR 100 UNIT/ML X5UNITS SUBQ SCH ×2 (09:18→20:28)
[2021-01-16] MEDS: Acetaminophen 325 MG TABLET PO PRN (09:21)
[2021-01-16] MEDS ORDERED: Ibuprofen 400 MG TABLET PO PRN ×2 (14:37→20:13)
[2021-01-16] MEDS ORDERED: Lidocaine 1% 20 ML MDV ONE (16:09)
[2021-01-16] MEDS ORDERED: Bupivacaine 0.5%-Epi 1:200,000 50 ML VIAL ONE (16:09)
[2021-01-16] MEDS ORDERED: Lidocaine -MPF 2% 2 ML VIAL ONE (17:15)
[2021-01-16] MEDS ORDERED: Ondansetron 4 MG/2 ML VIAL ONE (17:56)
[2021-01-16] MEDS ORDERED: Ondansetron 4 MG/2 ML VIAL IVP PRN ×2 (18:24→20:13)
[2021-01-16] MEDS ORDERED: *HR* HYDROmorphone PF 0.5 MG/0.5 ML SYRINGE IVP PRN (18:24)
[2021-01-16] MEDS ORDERED: Promethazine 6.25 MG in Water for inj. (sterile) 20 ML IVPB PRN (18:24)
[2021-01-16] MEDS ORDERED: *HR* HYDROcodone/Acet 5/325 mg TABLET PO PRN (18:24)
[2021-01-16] MEDS ORDERED: *HR* Labetalol 20 MG/4 ML SYRINGE IVP PRN (18:24)
[2021-01-16] MEDS ORDERED: *HR* Propofol 200 MG/20 ML VIAL IVP ONE (18:40)
[2021-01-16] MEDS ORDERED: D5% in Water 1,000 ML IVC PRN (20:13)
[2021-01-16] MEDS ORDERED: Dextrose Gel 15 GM/37.5 ML TUBE PO PRN ×2 (20:13)
[2021-01-16] MEDS ORDERED: Naloxone 0.4 MG/ML INJ IVP PRN (20:13)
[2021-01-16] MEDS ORDERED: *HR* Dextrose 50 % in Water (Vial) 50 ML VIAL IVP PRN (20:13)
[2021-01-16] MEDS ORDERED: Insulin DETEMIR 100 UNIT/ML X5UNITS SUBQ SCH ×2 (21:00)
[2021-01-17] MEDS: Insulin LISPRO 300 UNITS/3 ML VIAL SUBQ SCH ×4 (00:11→17:24)
[2021-01-17] MEDS: Piperacillin/Tazobactam 3.375 GM in 0.9 % Sodium Chloride Mini Bag 100 ML IVPB SCH ×3 (00:11→16:18)
[2021-01-17] MEDS ORDERED: Vancomycin 1,750 MG/517.5 ML IV.SOLN IVPB SCH (05:00)
[2021-01-17 05:20] LABS: Basophils % 0.2 %; Eosinophils % 0.1 %; Hematocrit 40.6 % (37.5-50.1); Hemoglobin 12.5 g/dL (12.9-16.9); Immature Granulocytes % 0.7 % (0-4); Lymphocytes # 0.4 K/mcL (0.6-4.6); Lymphocytes % 3.2 %; Mean Corpuscular HGB Conc 30.8 g/dL (31.6-35.5); Mean Corpuscular Volume 87.7 fL (83.0-100.0); Mean Platelet Volume 10.8 fL (9.4-12.4); Monocytes # 0.5 K/mcL (0.0-1.3); Monocytes % 3.8 %; Neutrophils # 11.2 K/mcL (1.6-8.9); Platelet Count 241 K/mcL (140-400); Red Blood Count 4.63 M/mcL (4.19-5.50); Red Cell Distribution Width 14.6 % (11.5-14.5)
[2021-01-17 05:22] LABS: White Blood Count 12.2 K/mcL (4.3-11.1)
[2021-01-17 05:42] LABS: BUN/Creatinine Ratio 20 (6-26); Blood Urea Nitrogen 29 mg/dL (6-20); Calcium 8.8 mg/dL (8.6-10.3); Carbon Dioxide 26 mEq/L (23-29); Chloride 94 mEq/L (98-107); Glucose 484 mg/dL (70-105); Osmolality,Calculated 295 (280-300); Potassium 5.9 mEq/L (3.5-5.1); Sodium 129 mEq/L (136-145); Vancomycin,Random 16 mcg/mL; eGFR For African Americans > 60 (> 60); eGFR For Non-African Americans 50 (> 60)
[2021-01-17] MEDS: Insulin DETEMIR 100 UNIT/ML X5UNITS SUBQ SCH (08:43)
[2021-01-17] MEDS: Aspirin Enteric Coated 81 MG Tablet PO SCH (08:43)
[2021-01-17] MEDS ORDERED: Insulin DETEMIR 100 UNIT/ML X5UNITS SUBQ ONE (09:00)
[2021-01-17 09:41] LABS: Phosphorous 4.1 mg/dL (2.7-4.5); Potassium 5.8 mEq/L (3.5-5.1)
[2021-01-17] MEDS ORDERED: Calcium Gluconate 1gm/50mL 1 GM/50 ML BAG IVPB ONE (10:37)
[2021-01-17] MEDS ORDERED: Albuterol 2.5 MG/3 ML NEBULIZER IH ONE (10:38)
[2021-01-17] MEDS ORDERED: Furosemide 20 MG TABLET PO ONE (11:37)
[2021-01-17] MEDS ORDERED: polyethylene glycoL 3350 17 GM POWD.PACK PO SCH (11:45)
[2021-01-17] MEDS: *HR* Heparin 5,000 UNIT/ML VIAL SQ SCH ×2 (12:39→16:18)
[2021-01-17] MEDS: polyethylene glycoL 3350 17 GM POWD.PACK PO SCH (15:12)
[2021-01-17] MEDS: *HR* OxyCODONE/APAP 5/325 TABLET PO PRN (16:17)
[2021-01-17] MEDS ORDERED: Vancomycin 1,750 MG/517.5 ML IV.SOLN IVPB ONE (18:30)
[2021-01-17] MEDS ORDERED: Insulin DETEMIR 100 UNIT/ML X5UNITS SUBQ SCH (21:00)
[2021-01-18] MEDS: Insulin LISPRO 300 UNITS/3 ML VIAL SUBQ SCH ×4 (00:23→20:32)
[2021-01-18] MEDS: Piperacillin/Tazobactam 3.375 GM in 0.9 % Sodium Chloride Mini Bag 100 ML IVPB SCH ×3 (00:27→16:21)
[2021-01-18] MEDS ORDERED: Insulin LISPRO 300 UNITS/3 ML VIAL SUBQ SCH (02:00)
[2021-01-18] MEDS ORDERED: Insulin LISPRO 300 UNITS/3 ML VIAL SUBQ ONE ×2 (02:10→04:34)
[2021-01-18 02:13] LABS: Basophils # 0.1 K/mcL (0.0-0.2); Basophils % 0.6 %; Eosinophils # 0.1 K/mcL (0.0-0.6); Eosinophils % 1.2 %; Hematocrit 39.9 % (37.5-50.1); Hemoglobin 12.3 g/dL (12.9-16.9); Immature Granulocytes % 1.1 % (0-4); Lymphocytes # 0.7 K/mcL (0.6-4.6); Lymphocytes % 6.1 %; Mean Corpuscular HGB Conc 30.8 g/dL (31.6-35.5); Mean Corpuscular Hemoglobin 27.9 pg (28.0-33.3); Mean Corpuscular Volume 90.5 fL (83.0-100.0); Mean Platelet Volume 10.7 fL (9.4-12.4); Monocytes % 8.6 %; Platelet Count 254 K/mcL (140-400); Red Blood Count 4.41 M/mcL (4.19-5.50); Red Cell Distribution Width 14.8 % (11.5-14.5); Segmented Neutrophils % 82.4 %; White Blood Count 12.1 K/mcL (4.3-11.1)
[2021-01-18 02:29] LABS: Phosphorous 4.7 mg/dL (2.7-4.5)
[2021-01-18 02:35] LABS: Calcium 8.9 mg/dL (8.6-10.3)
[2021-01-18] MEDS: *HR* Heparin 5,000 UNIT/ML VIAL SQ SCH ×2 (06:33→17:09)
[2021-01-18] MEDS ORDERED: Vancomycin 1,750 MG/517.5 ML IV.SOLN IVPB SCH (07:00)
[2021-01-18] MEDS: Aspirin Enteric Coated 81 MG Tablet PO SCH (08:29)
[2021-01-18] MEDS: polyethylene glycoL 3350 17 GM POWD.PACK PO SCH (08:31)
[2021-01-18] MEDS ORDERED: Insulin DETEMIR 100 UNIT/ML X5UNITS SUBQ SCH (09:00)
[2021-01-18] MEDS ORDERED: Insulin DETEMIR 100 UNIT/ML X5UNITS SUBQ ONE (10:19)
[2021-01-18] MEDS: *HR* OxyCODONE/APAP 5/325 TABLET PO PRN ×2 (11:15→20:31)
[2021-01-18] MEDS: DAPTOmycin 750 MG in 0.9 % Sodium Chloride 100 ML IVPB SCH (12:57)
[2021-01-18] MEDS: Ipratropium/Albuterol Neb 3 ML IH SCH ×3 (15:40→22:34)
[2021-01-18] MEDS: Insulin DETEMIR 100 UNIT/ML X5UNITS SUBQ SCH (20:32)
[2021-01-19] MEDS: Piperacillin/Tazobactam 3.375 GM in 0.9 % Sodium Chloride Mini Bag 100 ML IVPB SCH ×3 (00:31→16:05)
[2021-01-19] MEDS: Ipratropium/Albuterol Neb 3 ML IH SCH ×4 (04:20→22:08)
[2021-01-19] MEDS: *HR* Heparin 5,000 UNIT/ML VIAL SQ SCH ×2 (05:32→17:02)
[2021-01-19 06:10] LABS: Basophils # 0.1 K/mcL (0.0-0.2); Basophils % 0.7 %; Eosinophils # 0.3 K/mcL (0.0-0.6); Eosinophils % 2.8 %; Hematocrit 39.2 % (37.5-50.1); Hemoglobin 11.8 g/dL (12.9-16.9); Immature Granulocytes % 1.1 % (0-4); Lymphocytes # 0.7 K/mcL (0.6-4.6); Lymphocytes % 6.6 %; Mean Corpuscular HGB Conc 30.1 g/dL (31.6-35.5); Mean Corpuscular Hemoglobin 26.9 pg (28.0-33.3); Mean Corpuscular Volume 89.3 fL (83.0-100.0); Mean Platelet Volume 10.5 fL (9.4-12.4); Monocytes % 9.6 %; Neutrophils # 8.1 K/mcL (1.6-8.9); Platelet Count 239 K/mcL (140-400); Red Blood Count 4.39 M/mcL (4.19-5.50); Red Cell Distribution Width 14.7 % (11.5-14.5); Segmented Neutrophils % 79.2 %; White Blood Count 10.2 K/mcL (4.3-11.1)
[2021-01-19 06:35] LABS: BUN/Creatinine Ratio 20 (6-26); Blood Urea Nitrogen 28 mg/dL (6-20); Calcium 9.3 mg/dL (8.6-10.3); Carbon Dioxide 31 mEq/L (23-29); Chloride 96 mEq/L (98-107); Glucose 305 mg/dL (70-105); Osmolality,Calculated 295 (280-300); Potassium 4.6 mEq/L (3.5-5.1); Sodium 134 mEq/L (136-145); eGFR For African Americans > 60 (> 60); eGFR For Non-African Americans 53 (> 60)
[2021-01-19] MEDS: Insulin LISPRO 300 UNITS/3 ML VIAL SUBQ SCH ×4 (08:07→21:26)
[2021-01-19] MEDS: Insulin DETEMIR 100 UNIT/ML X5UNITS SUBQ SCH ×2 (08:09→21:25)
[2021-01-19] MEDS: polyethylene glycoL 3350 17 GM POWD.PACK PO SCH (08:09)
[2021-01-19] MEDS: Aspirin Enteric Coated 81 MG Tablet PO SCH (08:12)
[2021-01-19] MEDS: DAPTOmycin 750 MG in 0.9 % Sodium Chloride 100 ML IVPB SCH (11:05)
[2021-01-19] MEDS: *HR* OxyCODONE/APAP 5/325 TABLET PO PRN (21:24)
[2021-01-20] MEDS: Piperacillin/Tazobactam 3.375 GM in 0.9 % Sodium Chloride Mini Bag 100 ML IVPB SCH ×3 (00:56→16:36)
[2021-01-20 03:16] LABS: BUN/Creatinine Ratio 20 (6-26); Blood Urea Nitrogen 25 mg/dL (6-20); Calcium 9.7 mg/dL (8.6-10.3); Carbon Dioxide 33 mEq/L (23-29); Chloride 95 mEq/L (98-107); Glucose 284 mg/dL (70-105); Osmolality,Calculated 293 (280-300); Potassium 4.1 mEq/L (3.5-5.1); Sodium 134 mEq/L (136-145); eGFR For African Americans > 60 (> 60); eGFR For Non-African Americans > 60 (> 60)
[2021-01-20 03:24] LABS: Basophils # 0.1 K/mcL (0.0-0.2); Basophils % 0.7 %; Eosinophils # 0.2 K/mcL (0.0-0.6); Eosinophils % 2.6 %; Hematocrit 40.8 % (37.5-50.1); Hemoglobin 12.6 g/dL (12.9-16.9); Immature Granulocytes % 1.5 % (0-4); Lymphocytes # 0.8 K/mcL (0.6-4.6); Lymphocytes % 8.8 %; Mean Corpuscular HGB Conc 30.9 g/dL (31.6-35.5); Mean Corpuscular Hemoglobin 27.6 pg (28.0-33.3); Mean Corpuscular Volume 89.5 fL (83.0-100.0); Mean Platelet Volume 10.6 fL (9.4-12.4); Monocytes # 0.7 K/mcL (0.0-1.3); Monocytes % 7.8 %; Neutrophils # 7.4 K/mcL (1.6-8.9); Platelet Count 271 K/mcL (140-400); Red Blood Count 4.56 M/mcL (4.19-5.50); Red Cell Distribution Width 14.6 % (11.5-14.5); Segmented Neutrophils % 78.6 %; White Blood Count 9.4 K/mcL (4.3-11.1)
[2021-01-20] MEDS: Ipratropium/Albuterol Neb 3 ML IH SCH ×5 (04:09→22:09)
[2021-01-20] MEDS: *HR* OxyCODONE/APAP 5/325 TABLET PO PRN (04:54)
[2021-01-20] MEDS: *HR* Heparin 5,000 UNIT/ML VIAL SQ SCH ×2 (05:01→17:36)
[2021-01-20] MEDS: Insulin DETEMIR 100 UNIT/ML X5UNITS SUBQ SCH ×2 (08:26→20:47)
[2021-01-20] MEDS: Aspirin Enteric Coated 81 MG Tablet PO SCH (08:26)
[2021-01-20] MEDS: Insulin LISPRO 300 UNITS/3 ML VIAL SUBQ SCH ×4 (08:26→20:02)
[2021-01-20] MEDS: polyethylene glycoL 3350 17 GM POWD.PACK PO SCH (08:27)
[2021-01-20] MEDS ORDERED: Furosemide 20 MG/2 ML VIAL IVP ONE (10:09)
[2021-01-20] MEDS: DAPTOmycin 750 MG in 0.9 % Sodium Chloride 100 ML IVPB SCH (11:17)
[2021-01-21] MEDS: Piperacillin/Tazobactam 3.375 GM in 0.9 % Sodium Chloride Mini Bag 100 ML IVPB SCH ×3 (00:01→15:53)
[2021-01-21 01:07] LABS: Basophils # 0.1 K/mcL (0.0-0.2); Basophils % 0.6 %; Eosinophils # 0.2 K/mcL (0.0-0.6); Eosinophils % 2.5 %; Hematocrit 42.6 % (37.5-50.1); Hemoglobin 12.8 g/dL (12.9-16.9); Lymphocytes # 0.8 K/mcL (0.6-4.6); Mean Corpuscular Hemoglobin 27.2 pg (28.0-33.3); Mean Corpuscular Volume 90.4 fL (83.0-100.0); Mean Platelet Volume 10.5 fL (9.4-12.4); Monocytes # 0.6 K/mcL (0.0-1.3); Monocytes % 6.8 %; Neutrophils # 7.1 K/mcL (1.6-8.9); Platelet Count 247 K/mcL (140-400); Red Blood Count 4.71 M/mcL (4.19-5.50); Red Cell Distribution Width 14.6 % (11.5-14.5); Segmented Neutrophils % 80.1 %; White Blood Count 8.9 K/mcL (4.3-11.1)
[2021-01-21 01:24] LABS: BUN/Creatinine Ratio 20 (6-26); Blood Urea Nitrogen 25 mg/dL (6-20); Calcium 9.6 mg/dL (8.6-10.3); Carbon Dioxide 35 mEq/L (23-29); Chloride 94 mEq/L (98-107); Glucose 348 mg/dL (70-105); Osmolality,Calculated 300 (280-300); Potassium 4.5 mEq/L (3.5-5.1); Sodium 136 mEq/L (136-145); eGFR For African Americans > 60 (> 60); eGFR For Non-African Americans 58 (> 60)
[2021-01-21] MEDS: Ipratropium/Albuterol Neb 3 ML IH SCH ×4 (03:43→22:55)
[2021-01-21] MEDS: *HR* Heparin 5,000 UNIT/ML VIAL SQ SCH ×2 (06:08→20:02)
[2021-01-21] MEDS: *HR* OxyCODONE/APAP 5/325 TABLET PO PRN ×2 (06:46→15:59)
[2021-01-21] MEDS: Aspirin Enteric Coated 81 MG Tablet PO SCH (08:26)
[2021-01-21] MEDS: Insulin LISPRO 300 UNITS/3 ML VIAL SUBQ SCH ×4 (08:26→20:19)
[2021-01-21] MEDS: polyethylene glycoL 3350 17 GM POWD.PACK PO SCH (08:29)
[2021-01-21] MEDS: Insulin DETEMIR 100 UNIT/ML X5UNITS SUBQ SCH ×2 (08:36→20:17)
[2021-01-21] MEDS ORDERED: Furosemide 40 MG/4 ML VIAL IVP ONE (10:16)
[2021-01-21] MEDS: DAPTOmycin 750 MG in 0.9 % Sodium Chloride 100 ML IVPB SCH (15:45)
[2021-01-22] MEDS: Piperacillin/Tazobactam 3.375 GM in 0.9 % Sodium Chloride Mini Bag 100 ML IVPB SCH ×3 (00:07→16:25)
[2021-01-22 01:24] LABS: Basophils % 0.3 %; Eosinophils # 0.3 K/mcL (0.0-0.6); Eosinophils % 2.9 %; Hematocrit 41.4 % (37.5-50.1); Hemoglobin 12.2 g/dL (12.9-16.9); Immature Granulocytes % 1.1 % (0-4); Lymphocytes # 0.7 K/mcL (0.6-4.6); Lymphocytes % 8.5 %; Mean Corpuscular HGB Conc 29.5 g/dL (31.6-35.5); Mean Corpuscular Hemoglobin 27.2 pg (28.0-33.3); Mean Corpuscular Volume 92.4 fL (83.0-100.0); Mean Platelet Volume 10.8 fL (9.4-12.4); Monocytes # 0.6 K/mcL (0.0-1.3); Monocytes % 7.4 %; Neutrophils # 6.9 K/mcL (1.6-8.9); Platelet Count 285 K/mcL (140-400); Red Blood Count 4.48 M/mcL (4.19-5.50); Red Cell Distribution Width 14.6 % (11.5-14.5); Segmented Neutrophils % 79.8 %; White Blood Count 8.7 K/mcL (4.3-11.1)
[2021-01-22 01:48] LABS: BUN/Creatinine Ratio 20 (6-26); Blood Urea Nitrogen 27 mg/dL (6-20); Calcium 9.6 mg/dL (8.6-10.3); Carbon Dioxide 40 mEq/L (23-29); Chloride 92 mEq/L (98-107); Glucose 401 mg/dL (70-105); Osmolality,Calculated 306 (280-300); Potassium 5.1 mEq/L (3.5-5.1); Sodium 137 mEq/L (136-145); eGFR For African Americans > 60 (> 60); eGFR For Non-African Americans 55 (> 60)
[2021-01-22] MEDS: Ipratropium/Albuterol Neb 3 ML IH SCH ×4 (04:14→22:43)
[2021-01-22] MEDS: *HR* Heparin 5,000 UNIT/ML VIAL SQ SCH ×2 (06:28→16:25)
[2021-01-22] MEDS: Insulin LISPRO 300 UNITS/3 ML VIAL SUBQ SCH ×4 (08:47→21:03)
[2021-01-22] MEDS: polyethylene glycoL 3350 17 GM POWD.PACK PO SCH (08:47)
[2021-01-22] MEDS: Aspirin Enteric Coated 81 MG Tablet PO SCH (08:48)
[2021-01-22] MEDS: Insulin DETEMIR 100 UNIT/ML X5UNITS SUBQ SCH ×3 (08:49→21:03)
[2021-01-22] MEDS ORDERED: Albumin 25% 25gram/100mL 25 GM/100 ML IV.SOLN IVPB ONE (10:12)
[2021-01-22] MEDS ORDERED: Insulin DETEMIR 100 UNIT/ML X5UNITS SUBQ ONE (10:21)
[2021-01-22] MEDS: DAPTOmycin 750 MG in 0.9 % Sodium Chloride 100 ML IVPB SCH (10:29)
[2021-01-22] MEDS ORDERED: Furosemide 40 MG/4 ML VIAL IVP ONE (13:00)
[2021-01-23 01:48] LABS: Alanine Aminotransferase 37 Units/L (7-52); Albumin 3.6 g/dL (3.5-5.7); Albumin/Globulin Ratio 1.2 (1.1-2.2); Alkaline Phosphatase 148 Units/L (34-104); Aspartate Amino Transferase 27 Units/L (13-39); BUN/Creatinine Ratio 22 (6-26); Bilirubin,Total 0.5 mg/dL (0.3-1.0); Blood Urea Nitrogen 28 mg/dL (6-20); Calcium 9.4 mg/dL (8.6-10.3); Carbon Dioxide 36 mEq/L (23-29); Chloride 92 mEq/L (98-107); Globulin 3.1 g/dL (2.4-3.5); Glucose 331 mg/dL (70-105); Osmolality,Calculated 298 (280-300); Potassium 4.5 mEq/L (3.5-5.1); Sodium 135 mEq/L (136-145); Total Protein 6.7 g/dL (6.4-8.9); eGFR For African Americans > 60 (> 60); eGFR For Non-African Americans 57 (> 60)
[2021-01-23] MEDS: Piperacillin/Tazobactam 3.375 GM in 0.9 % Sodium Chloride Mini Bag 100 ML IVPB SCH ×3 (02:01→15:44)
[2021-01-23] MEDS: *HR* OxyCODONE/APAP 5/325 TABLET PO PRN (02:01)
[2021-01-23 02:16] LABS: Basophils # 0.1 K/mcL (0.0-0.2); Basophils % 0.6 %; Eosinophils # 0.3 K/mcL (0.0-0.6); Hematocrit 37.6 % (37.5-50.1); Hemoglobin 11.8 g/dL (12.9-16.9); Immature Granulocytes % 1.2 % (0-4); Lymphocytes # 0.8 K/mcL (0.6-4.6); Lymphocytes % 9.6 %; Mean Corpuscular HGB Conc 31.4 g/dL (31.6-35.5); Mean Corpuscular Hemoglobin 26.9 pg (28.0-33.3); Mean Corpuscular Volume 85.6 fL (83.0-100.0); Monocytes # 0.7 K/mcL (0.0-1.3); Monocytes % 8.1 %; Neutrophils # 6.6 K/mcL (1.6-8.9); Platelet Count 271 K/mcL (140-400); Red Blood Count 4.39 M/mcL (4.19-5.50); Red Cell Distribution Width 14.3 % (11.5-14.5); Segmented Neutrophils % 77.5 %; White Blood Count 8.6 K/mcL (4.3-11.1)
[2021-01-23] MEDS: Ipratropium/Albuterol Neb 3 ML IH SCH ×4 (03:49→22:23)
[2021-01-23] MEDS: *HR* Heparin 5,000 UNIT/ML VIAL SQ SCH ×2 (05:58→20:55)
[2021-01-23] MEDS ORDERED: Albumin 25% 25gram/100mL 25 GM/100 ML IV.SOLN IVPB SCH ×2 (07:30→13:00)
[2021-01-23] MEDS: Insulin LISPRO 300 UNITS/3 ML VIAL SUBQ SCH ×4 (08:28→21:17)
[2021-01-23] MEDS: Aspirin Enteric Coated 81 MG Tablet PO SCH (08:29)
[2021-01-23] MEDS: Insulin DETEMIR 100 UNIT/ML X5UNITS SUBQ SCH ×4 (08:30→20:56)
[2021-01-23] MEDS: polyethylene glycoL 3350 17 GM POWD.PACK PO SCH (08:36)
[2021-01-23] MEDS ORDERED: Furosemide 40 MG/4 ML VIAL IVP SCH ×2 (09:00→14:00)
[2021-01-23] MEDS: DAPTOmycin 750 MG in 0.9 % Sodium Chloride 100 ML IVPB SCH (11:39)
[2021-01-23] MEDS ORDERED: Furosemide 20 MG/2 ML VIAL IVP ONE (21:00)
[2021-01-24] MEDS: Piperacillin/Tazobactam 3.375 GM in 0.9 % Sodium Chloride Mini Bag 100 ML IVPB SCH ×3 (01:01→17:14)
[2021-01-24] MEDS: Ipratropium/Albuterol Neb 3 ML IH SCH ×3 (03:16→16:39)
[2021-01-24 05:24] LABS: Basophils # 0.1 K/mcL (0.0-0.2); Basophils % 0.6 %; Eosinophils # 0.2 K/mcL (0.0-0.6); Eosinophils % 2.6 %; Hematocrit 40.9 % (37.5-50.1); Hemoglobin 12.5 g/dL (12.9-16.9); Immature Granulocytes % 0.9 % (0-4); Lymphocytes # 0.6 K/mcL (0.6-4.6); Lymphocytes % 8.3 %; Mean Corpuscular HGB Conc 30.6 g/dL (31.6-35.5); Mean Corpuscular Hemoglobin 26.9 pg (28.0-33.3); Mean Corpuscular Volume 88.1 fL (83.0-100.0); Mean Platelet Volume 10.3 fL (9.4-12.4); Monocytes # 0.7 K/mcL (0.0-1.3); Monocytes % 9.3 %; Platelet Count 275 K/mcL (140-400); Red Blood Count 4.64 M/mcL (4.19-5.50); Red Cell Distribution Width 14.1 % (11.5-14.5); Segmented Neutrophils % 78.3 %; White Blood Count 7.7 K/mcL (4.3-11.1)
[2021-01-24 06:00] LABS: BUN/Creatinine Ratio 22 (6-26); Blood Urea Nitrogen 31 mg/dL (6-20); Calcium 9.5 mg/dL (8.6-10.3); Carbon Dioxide 35 mEq/L (23-29); Chloride 90 mEq/L (98-107); Glucose 379 mg/dL (70-105); Osmolality,Calculated 300 (280-300); Potassium 4.4 mEq/L (3.5-5.1); Sodium 134 mEq/L (136-145); eGFR For African Americans > 60 (> 60); eGFR For Non-African Americans 53 (> 60)
[2021-01-24] MEDS: *HR* Heparin 5,000 UNIT/ML VIAL SQ SCH ×2 (06:16→17:14)
[2021-01-24 07:34] VITALS: BP 139/83
[2021-01-24] MEDS: Aspirin Enteric Coated 81 MG Tablet PO SCH (08:05)
[2021-01-24] MEDS: Insulin DETEMIR 100 UNIT/ML X5UNITS SUBQ SCH ×2 (08:07→10:46)
[2021-01-24] MEDS: Insulin LISPRO 300 UNITS/3 ML VIAL SUBQ SCH ×2 (08:08→16:55)
[2021-01-24] MEDS: polyethylene glycoL 3350 17 GM POWD.PACK PO SCH (10:11)
== END 2021-01-24 18:00 | disposition home health service (06) | DRG 616 ==
LOC: EMEROOARM 15:49 → 3NENU 15:49 → SUATTDRO 18:16 → 3NENU 19:56 → SUATTDRO 01-16 10:13
PROVIDERS: ADMIT Internal Medicine; ATTEND Family Medicine